=== PATIENT | female | born 1995 | race Caucasian/White ===

== ENCOUNTER → 2018-01-13 19:05 | Outpatient (CLI) | payer OTHER, MEDICAID, SELFPAY ==
--- NOTE | 2018-01-13 19:16 | DI.RAD.S_ITS ---
PROCEDURE: XR KNEE LT 3V INDICATIONS: L knee pain TECHNIQUE: 3 views of the knee were acquired. COMPARISON: None. FINDINGS: Bones: No fractures or dislocations. No suspicious bony lesions. Intramedullary chuy within the femur is present. Soft tissues: No joint effusion. No suspicious soft tissue calcifications. IMPRESSION: No fracture. No osseous lesion. If symptoms or clinical suspicion for pathology persists, further assessment with repeat plain films, or advanced imaging (e.g., CT, MRI, or bone scan) is recommended. Dictated by: Eliana Mehta M.D. on 01/13/2018 at 19:38 Approved by: Eliana Mehta M.D. on 01/13/2018 at 19:39
== END ==
PROVIDERS: Visit Provider Physician Assistant
DX: M25.562 Pain in left knee (principal)
CPT/HCPCS: 73562

== ENCOUNTER → 2018-01-19 12:32 | Outpatient (CLI) | payer OTHER, MEDICAID, SELFPAY ==
--- NOTE | 2018-01-19 12:33 | DI.MRI.S_ITS ---
PROCEDURE: MR KNEE LT WO/W CON INDICATIONS: L knee pain TECHNIQUE: Noncontrast sagittal PD fast spin echo and T2 fast spin echo with fat saturation, sagittal 3-D FLASH with fat saturation; coronal T1 spin echo and PD fast spin echo with fat saturation, and axial T1 spin echo and PD fast spin echo with fat saturation through the knee. Post-contrast axial, coronal, and sagittal T1 spin echo with fat saturation through the knee. COMPARISON: None. FINDINGS: Image quality: Excellent. Menisci: The medial and lateral menisci demonstrate normal morphology and internal signal. The meniscal root ligaments appear intact. Cruciate ligaments: The anterior and posterior cruciate ligaments appear intact. Medial structures: The medial collateral ligament appears intact. The posterior oblique ligament, semimembranosus tendon insertions, and oblique popliteal liagment, and meniscocapsular junction appear intact. Visualized portions of the pes anserinus tendons appear normal. No abnormal bursal fluid. Lateral structures: The lateral collateral ligament, long and short heads of the biceps femoris tendon appear intact. The popliteus tendon appears normal; the popliteofibular ligament appears intact. The posterosuperior and anteroinferior popliteomeniscal fascicles appear intact. The arcuate and fabellofibular ligaments appear intact, around the lateral inferior geniculate artery. Iliotibial band appears normal. Anterior structures: The quadriceps and patellar tendons appear intact. Patellar alignment is normal. No femoral trochlear dysplasia or ventral trochlear prominence. No edema in the infrapatellar fat pad. Bones and cartilage: Intramedullary chuy in the visualized portion of distal femur is seen. There is tiny 3 mm area of signal abnormality involving weight-bearing portion of lateral femoral condyle with mild overlying chondromalacia suggestive of small osteochondral lesion in this area. No other area of abnormal marrow signal is seen. No fracture or dislocation. No suspicious osseous enhancement. The cartilage of the medial femorotibial compartments, as well as the patellofemoral compartment, appears normal in thickness. Joint space: There is physiologic knee joint fluid. No Najera's cyst. Normal appearing synovial plicae are incidentally noted. No suspicious soft tissue enhancement. IMPRESSION: 1. Findings suggestive of a tiny 3 mm osteochondral lesion involving weight-bearing portion of lateral femoral condyle. 2. Intramedullary chuy and distal femoral shaft. No acute fracture or dislocation. No other area of marrow signal abnormality. 3. Patient ligaments are intact. No evidence of focal meniscal tear. Dictated by: Kenny Varma M.D. on 01/19/2018 at 13:42 Approved by: Kenny Varma M.D. on 01/19/2018 at 14:37
== END ==
PROVIDERS: PCP Family Medicine; Visit Provider Physician Assistant
DX: M25.562 Pain in left knee (principal)
CPT/HCPCS: 73723; A9579

== ENCOUNTER → 2018-04-28 08:55 | Outpatient (CLI) | payer OTHER, MEDICAID, SELFPAY ==
[2018-04-28 09:56] LABS: Add Manual Diff / Slide Review NO; Basophils Absolute Auto 0 /uL (0-100); Basophils Percent Auto 0.5 % (0-2); Eosinophils Absolute Auto 100 /uL (0-450); Eosinophils Percent Auto 2.1 % (2-4); Hematocrit 41.5 % (36-46); Hemoglobin 13.4 g/dL (12.0-16.0); Lymphocytes Absolute Auto 2200 /uL (1100-4500); Lymphocytes Percent Auto 33.2 % (25-40); Mean Corpuscular HGB Conc 32.3 % (30-36); Mean Corpuscular Hemoglobin 24.5 PG (26-34); Mean Corpuscular Volume 75.9 fL (80-100); Monocytes Absolute Auto 500 /uL (0-900); Neutrophils Absolute Auto 3800 /uL (1500-7000); Neutrophils Percent Auto 57.2 % (50-75); Platelet Count 313 X10^3/uL (150-400); Red Blood Cell Count 5.47 X10^6/uL (4.0-5.2); Red Cell Distribution Width 16.1 % (11.6-14.8); White Blood Cell Count 6.7 X10^3/uL (4.5-11.0)
[2018-04-28 10:26] LABS: Alanine Aminotransferase 160 IU/L (9-52); Albumin 4.4 g/dL (3.5-5.0); Albumin Globulin Ratio 1.3 (1.0-2.8); Alkaline Phosphatase 78 U/L (38-126); Aspartate Aminotransferase 72 IU/L (14-36); BUN Creatinine Ratio 13.3 (6-22); Bilirubin Total 0.3 mg/dL (0.2-1.3); Blood Urea Nitrogen 8 mg/dL (7-17); Calcium 9.3 mg/dL (8.4-10.2); Carbon Dioxide 26 mmol/L (22-32); Chloride 105 mmol/L (98-107); Cholesterol 173 mg/dL (140-199); Estimated Glomerular Filt Rate > 60.0 mL/min (>60); Globulin 3.4 g/dL (1.7-4.1); Glucose 96 mg/dL (70-100); HDL Cholesterol 40 mg/dL (40-60); HEMOLYSIS < 15 (0-50); LDL Cholesterol Calculated 113 mg/dL (<100); Potassium 4.4 mmol/L (3.4-5.1); Sodium 142 mmol/L (137-145); Total Protein 7.8 g/dL (6.3-8.2); Triglycerides 102 mg/dL (35-150)
[2018-04-28 10:34] LABS: Follicle Stimulating Hormone 4.16 mIU/mL; Luteinizing Hormone 6.43 mIU/mL; Prolactin 24.1 ng/mL (3.0-18.6)
[2018-04-28 10:46] LABS: TSH w/ Reflex to FT4 2.55 uIU/mL (0.47-4.68)
== END ==
PROVIDERS: PCP Family Medicine; Visit Provider Family Medicine
DX: E28.2 Polycystic ovarian syndrome (principal)
CPT/HCPCS: 36415; 80053; 80061; 83001; 83002; 84146; 84403; 84443; 85025

== ENCOUNTER → 2018-07-15 14:09 | Outpatient (CLI) | payer OTHER, MEDICAID, SELFPAY ==
[2018-07-15 14:28] LABS: Add Manual Diff / Slide Review NO; Basophils Absolute Auto 100 /uL (0-100); Basophils Percent Auto 0.8 % (0-2); Eosinophils Absolute Auto 200 /uL (0-450); Eosinophils Percent Auto 1.6 % (2-4); Hematocrit 44.6 % (36-46); Hemoglobin 14.5 g/dL (12.0-16.0); Lymphocytes Absolute Auto 2800 /uL (1100-4500); Lymphocytes Percent Auto 25.2 % (25-40); Mean Corpuscular HGB Conc 32.5 % (30-36); Mean Corpuscular Hemoglobin 24.4 PG (26-34); Mean Corpuscular Volume 75.2 fL (80-100); Monocytes Absolute Auto 600 /uL (0-900); Monocytes Percent Auto 5.2 % (3-14); Neutrophils Absolute Auto 7400 /uL (1500-7000); Neutrophils Percent Auto 67.2 % (50-75); Platelet Count 350 X10^3/uL (150-400); Red Blood Cell Count 5.93 X10^6/uL (4.0-5.2); Red Cell Distribution Width 15.5 % (11.6-14.8); White Blood Cell Count 10.9 X10^3/uL (4.5-11.0)
[2018-07-15 14:44] LABS: HEMOLYSIS < 15 (0-50); Iron 48 ug/dL (37-170)
[2018-07-15 14:55] LABS: Percent Iron Saturation 10 % (15-50); Total Iron Binding Capacity 474 ug/dL (265-497); Transferrin 365 mg/dL (206-381)
[2018-07-15 15:00] LABS: Prolactin 21.1 ng/mL (3.0-18.6)
[2018-07-15 16:19] LABS: Urine N gonorrhoeae NOT DETECTED
[2018-07-15 16:40] LABS: Urine Chlamydia NOT DETECTED
== END ==
PROVIDERS: PCP Family Medicine; Visit Provider Family Medicine
DX: Z11.3 Encounter for screening for infections with a predominantly sexual mode of transmission (principal); E22.1 Hyperprolactinemia; D50.9 Iron deficiency anemia, unspecified
CPT/HCPCS: 36415; 83540; 83550; 84146; 85025; 87491; 87591

== ENCOUNTER → 2018-09-21 15:05 | Outpatient (CLI) | payer OTHER, MEDICAID, SELFPAY ==
[2018-09-24 10:51] LABS: Mitogen-NIL > 10.00 IU/mL; NIL 0.02 IU/mL; QuantiFERON TB NEGATIVE (Negative); TB1-NIL 0.01 IU/mL; TB2-NIL 0.01 IU/mL
== END ==
PROVIDERS: PCP Family Medicine; Visit Provider Family Medicine
DX: Z11.1 Encounter for screening for respiratory tuberculosis (principal)
CPT/HCPCS: 36415; 86480

== ENCOUNTER → 2018-10-27 16:17 | Outpatient (CLI) | payer OTHER, MEDICAID, SELFPAY ==
[2018-10-27 20:29] LABS: Urine N gonorrhoeae NOT DETECTED
[2018-10-27 20:32] LABS: Urine Chlamydia NOT DETECTED
== END ==
PROVIDERS: PCP Family Medicine; Visit Provider Family Medicine
DX: Z11.3 Encounter for screening for infections with a predominantly sexual mode of transmission (principal); Z72.51 High risk heterosexual behavior
CPT/HCPCS: 87491; 87591

== ENCOUNTER → 2018-11-02 13:10 | Outpatient (CLI) | payer OTHER, MEDICAID, SELFPAY ==
[2018-11-02 16:24] LABS: BUN Creatinine Ratio 11.7 (6-22); Blood Urea Nitrogen 7 mg/dL (7-17); Calcium 9.1 mg/dL (8.4-10.2); Carbon Dioxide 26 mmol/L (22-32); Chloride 102 mmol/L (98-107); Estimated Glomerular Filt Rate > 60.0 mL/min (>60); Glucose 104 mg/dL (70-100); HEMOLYSIS < 15 (0-50); Potassium 4.2 mmol/L (3.4-5.1); Sodium 139 mmol/L (137-145)
== END ==
PROVIDERS: PCP Family Medicine; Visit Provider Family Medicine
DX: L68.0 Hirsutism (principal)
CPT/HCPCS: 36415; 80048

== ENCOUNTER → 2019-03-10 13:35 | Outpatient (CLI) | payer OTHER, MEDICAID, SELFPAY ==
[2019-03-10 16:58] LABS: Urine N gonorrhoeae NOT DETECTED
[2019-03-10 17:06] LABS: Urine Chlamydia NOT DETECTED
== END ==
PROVIDERS: PCP Family Medicine; Visit Provider Family Medicine
DX: Z11.3 Encounter for screening for infections with a predominantly sexual mode of transmission (principal)
CPT/HCPCS: 87491; 87591

== ENCOUNTER 2019-05-19 02:03 | Emergency (ER) | payer OTHER, MEDICAID, SELFPAY ==
[2019-05-19 02:21] VITALS: BP 141/77; PULSE 90; RESP 17; TEMP 36.9; O2SAT 97; BMI 37.8
--- NOTE | 2019-05-19 02:58 | ED.HA ---
HPI - Headache General Chief Complaint: Headache Stated Complaint: sinus infection/shaking/sweating/headaches Time Seen by Provider: 05/19/19 02:45 History of Present Illness HPI Narrative: HPI: The patient is a 23-year-old female who presents to the emergency department with a bifrontal headache behind both eyes. She states that she is phonophobia can photophobic. When asked questions the patient is looking to her friend for acknowledgement of her answers. She denies any loss of vision or diplopia. She states that she was seen earlier in the walk-in clinic and told that she had a sinus infection and was placed on penicillin. She denies any fall or injury to her head. Her last headache was yesterday. She states that normally she has daily headaches. She states that she has never been told that she had migraine headaches. She describes the discomfort as a dull achy throbbing pain that is approximately 7 to 8/10 in intensity. She denies any fever chills but has had intermittent sweats. She has had no loss of vision or diplopia. She denies any sore throat but has had sinus congestion and nasal drainage without nose bleed. She has had no significant cough chest pain palpitations. She has had nausea and vomited twice earlier today. She has had no diarrhea and no urinary symptoms. She states that her last menstrual period was earlier this month. She states that she had a negative test when she was seen in the walk-in clinic. She denies history of asthma hypertension or diabetes mellitus. She admits to smoking cigarettes drinking alcohol and smoking marijuana. Related Data Previous Rx's Medication Instructions Recorded spironolactone 50 mg tablet 50 mg PO BID #60 tab 10/27/18 sertraline 100 mg tablet 100 mg PO DAILY #90 tab 12/26/18 norgestimate 0.25 mg-ethinyl 1 tab PO DAILY #28 tab 02/27/19 estradiol 35 mcg tablet amoxicillin 875 mg-potassium 1 tab PO BID #20 tab 05/15/19 clavulanate 125 mg tablet naproxen [Naprosyn] 500 mg PO BID PRN #20 tab 05/19/19 prednisone 40 mg PO DAILY #8 tab 05/19/19 prochlorperazine maleate 10 mg PO Q6H PRN #12 tab 05/19/19 [Compazine] Allergies Allergy/AdvReac Type Severity Reaction Status Date / Time No Known Drug Allergies Allergy Verified 05/15/19 14:58 Review of Systems Review of Systems Narrative: Her review of systems were all negative except for those mentioned in the history of present illness. Patient History Medical History Depression (Acute) Fracture (Resolved) Hirsutism (Acute) PCOS (polycystic ovarian syndrome) (Acute) Sinusitis (Acute) Surgical History [place] teeth extracted (Resolved) Family History Father Hypertension CVA (cerebral vascular accident) Social History marital status: unmarried,single number of children: 0 lives independently: Yes education level: high school occupational status: unemployed Smoking Status: Never smoker alcohol intake: current (social) substance use type: does not use Smoking Status: Never smoker Exam Narrative Exam Narrative: PHYSICAL EXAM: CONSTITUTIONAL: Awake, Alert, Oriented, Coherent, Cooperative in NAD. Does not appear toxic or ill. HEAD: AT/NC, there is no tenderness to palpation over her frontal sinuses above her eyes but she is diffusely tender mildly to palpation over her maxillary sinuses. EENT: PERRL, FROM of eyes, no discharge, no nystagmus No epistaxis or nasal drainage Oral mucosa is moist and pink, posterior pharynx is without erythema or exudate. NECK: Supple, no obvious JVD, Trachea is midline without stridor, no palpable LN or masses. SPINE: No gross deformity, no palpable tenderness of the cervical, thoracic, lumbar or sacral spine. No CVA tenderness. THORAX: No deformity, retractions, chest wall tenderness, LUNGS: Clear with symmetrical breath sounds without respiratory distress HEART: Normal heart tones, regular rhythm and rate without murmur. ABDOMEN: Soft, non-tender, normal bowel sounds without guarding, rebound, rigidity or palpable mass or organomegaly. EXTREMITIES: No edema, cyanosis, deformity or tenderness. SKIN: No rash, bruising, petechiae or purpura. NEURO: Awake, alert, oriented, conversive, cranial nerves II-XII are symmetrical and normal, moves all 4 extremities and is ambulatory Initial Vital Signs Initial Vital Signs: Vital Signs Temperature 98.4 F 05/19/19 02:21 Pulse Rate 90 05/19/19 02:21 Respiratory Rate 17 05/19/19 02:21 Blood Pressure 141/77 H 05/19/19 02:21 Pulse Oximetry 97 05/19/19 02:21 Course Course Course Narrative: 0400 the patient's headache has completely resolved and she was sleeping. She will be discharged Orders Ordered: Discontinued Medications Diphenhydramine HCl (Benadryl) 50 mg IV NOW ONE Stop: 05/19/19 02:57 Last Admin: 05/19/19 03:06 Dose: 50 mg Documented by: FELICITY Sodium Chloride (Normal Saline 0.9%) 1,000 mls @ 1,000 mls/hr IV BOLUS ONE Stop: 05/19/19 03:55 Last Infusion: 05/19/19 04:05 Dose: 1,000 mls/hr Documented by: Admin: 05/19/19 03:07 Dose: 1,000 mls/hr Documented by: FELICITY Ketorolac Tromethamine (Toradol) 30 mg IV NOW ONE Stop: 05/19/19 02:57 Last Admin: 05/19/19 03:06 Dose: 30 mg Documented by: MARCOSL Methylprednisolone (Solu-Medrol 125 Mg Vial) 125 mg IV NOW ONE Stop: 05/19/19 02:57 Last Admin: 05/19/19 03:06 Dose: 125 mg Documented by: FELICITY Metoclopramide HCl (Reglan) 10 mg IV NOW ONE Stop: 05/19/19 02:57 Last Admin: 05/19/19 03:07 Dose: 10 mg Documented by: FELICITY Vital Signs Vital signs: Vital Signs - 8 hr 05/19/19 02:21 Temperature 98.4 F Pulse Rate 90 Respiratory Rate 17 Blood Pressure 141/77 H Pulse Oximetry 97 MDM - Headache Medical Records Attestation: I reviewed the patient's medical records. Lab Data Attestation: I reviewed the patient's lab results. Result diagrams: 05/19/19 02:50 05/19/19 02:50 Labs: Lab Results 05/19/19 05/19/19 Range/Units 02:50 02:50 WBC 10.7 (4.5-11.0) X10^3/uL RBC 5.06 (4.0-5.2) X10^6/uL Hgb 12.4 (12.0-16.0) g/dL Hct 38.3 (36-46) % MCV 75.6 L (80-100) fL MCH 24.5 L (26-34) PG MCHC 32.4 (30-36) % RDW 15.6 H (11.6-14.8) % Plt Count 352 (150-400) X10^3/uL Neut % (Auto) 69.6 (50-75) % Lymph % (Auto) 22.7 L (25-40) % Gillespie % (Auto) 5.8 (3-14) % Eos % (Auto) 1.1 L (2-4) % Baso % (Auto) 0.8 (0-2) % Neut # (Auto) 7400 H (7279-6746) /uL Lymph # (Auto) 2400 (0386-9207) /uL Gillespie # (Auto) 600 (0-900) /uL Eos # (Auto) 100 (0-450) /uL Baso # (Auto) 100 (0-100) /uL Sodium 138 (137-145) mmol/L Potassium 3.8 (3.4-5.1) mmol/L Chloride 105 (98-107) mmol/L Carbon Dioxide 21 L (22-32) mmol/L BUN 11 (7-17) mg/dL Creatinine 0.58 (0.52-1.04) mg/dL Estimated GFR > 60.0 (>60) mL/min BUN/Creatinine Ratio 19.0 (6-22) Glucose 116 H (70-100) mg/dL Calcium 9.2 (8.4-10.2) mg/dL Total Bilirubin 0.2 (0.2-1.3) mg/dL AST 23 (14-36) IU/L ALT 17 (<35) IU/L Alkaline Phosphatase 68 (38-126) U/L Total Protein 8.2 (6.3-8.2) g/dL Albumin 4.6 (3.5-5.0) g/dL Globulin 3.6 (1.7-4.1) g/dL Albumin/Globulin Ratio 1.3 (1.0-2.8) Discharge Plan Departure Patient Disposition: Home Clinical Impression: Headache around the eyes Discharge Date/Time: 05/19/19 04:09 Instructions: DI for Migraine, DI for Headache Activity Restrictions/Additional Instructions: 1. Follow-up with your primary care physician. Make an appointment to be re-evaluated in 48-72 hours. 2. For your headaches use Naprosyn 500 mg twice a day as prescribed. 3. For associated nausea and vomiting take the Compazine in conjunction with Benadryl 25 mg 3 times a day. 4. If you develop worsening headache, fever chills or sweats return to the emergency department. 5. Continue to use your antibiotics as prescribed. Prescriptions: New prochlorperazine maleate [Compazine] 10 mg tablet 10 mg PO Q6H PRN (Reason: nausea and vomiting) Qty: 12 RF: 0 naproxen [Naprosyn] 500 mg tablet 500 mg PO BID PRN (Reason: pain) Qty: 20 RF: 0 prednisone 20 mg tablet 40 mg PO DAILY Qty: 8 RF: 0 No Action spironolactone 50 mg tablet 50 mg PO BID Qty: 60 RF: 3 amoxicillin-pot clavulanate [Augmentin] 875-125 mg tablet 1 tab PO BID Qty: 20 RF: 0 sertraline 100 mg tablet 100 mg PO DAILY Qty: 90 RF: 1 norgestimate-ethinyl estradiol [Sprintec (28)] 0.25-35 mg-mcg tablet 1 tab PO DAILY Qty: 28 RF: 3 Referrals: Ciara Lopes DO [Primary Care Provider] - ED Sign-out [facility] ED Attending [place] Attestation: I was immediately available in the department for consultation. This documentation has been reviewed and I agree with assessment and plan. Supervised by Stephan Weiner MD
[2019-05-19 03:06] LABS: Add Manual Diff / Slide Review NO; Basophils Absolute Auto 100 /uL (0-100); Basophils Percent Auto 0.8 % (0-2); Eosinophils Absolute Auto 100 /uL (0-450); Eosinophils Percent Auto 1.1 % (2-4); Hematocrit 38.3 % (36-46); Hemoglobin 12.4 g/dL (12.0-16.0); Lymphocytes Absolute Auto 2400 /uL (1100-4500); Lymphocytes Percent Auto 22.7 % (25-40); Mean Corpuscular HGB Conc 32.4 % (30-36); Mean Corpuscular Hemoglobin 24.5 PG (26-34); Mean Corpuscular Volume 75.6 fL (80-100); Monocytes Absolute Auto 600 /uL (0-900); Monocytes Percent Auto 5.8 % (3-14); Neutrophils Absolute Auto 7400 /uL (1500-7000); Neutrophils Percent Auto 69.6 % (50-75); Platelet Count 352 X10^3/uL (150-400); Red Blood Cell Count 5.06 X10^6/uL (4.0-5.2); Red Cell Distribution Width 15.6 % (11.6-14.8); White Blood Cell Count 10.7 X10^3/uL (4.5-11.0)
[2019-05-19] MEDS: diphenhydrAMINE 50 MG/ML VIAL IV (03:06)
[2019-05-19] MEDS: KETOROLAC 60 MG/2 ML VIAL 30 MG IV (03:06)
[2019-05-19] MEDS: methylPREDNISolone 125 MG/2 ML VIAL IV (03:06)
[2019-05-19] MEDS: SODIUM CHLORIDE 0.9% 1,000 ML 1000 ML IV (03:07)
[2019-05-19] MEDS: METOCLOPRAMIDE 10 MG/2 ML INJ IV (03:07)
[2019-05-19 03:14] LABS: Alanine Aminotransferase 17 IU/L (<35); Albumin 4.6 g/dL (3.5-5.0); Albumin Globulin Ratio 1.3 (1.0-2.8); Alkaline Phosphatase 68 U/L (38-126); Aspartate Aminotransferase 23 IU/L (14-36); Bilirubin Total 0.2 mg/dL (0.2-1.3); Blood Urea Nitrogen 11 mg/dL (7-17); Calcium 9.2 mg/dL (8.4-10.2); Carbon Dioxide 21 mmol/L (22-32); Chloride 105 mmol/L (98-107); Estimated Glomerular Filt Rate > 60.0 mL/min (>60); Globulin 3.6 g/dL (1.7-4.1); Glucose 116 mg/dL (70-100); HEMOLYSIS < 15 (0-50); Potassium 3.8 mmol/L (3.4-5.1); Sodium 138 mmol/L (137-145); Total Protein 8.2 g/dL (6.3-8.2)
[2019-05-19 04:08] VITALS: BP 129/76; PULSE 73; RESP 14; O2SAT 98
== END 2019-05-19 04:09 | disposition home or self-care (01) ==
PROVIDERS: Emergency Provider Emergency Medicine; PCP Family Medicine
DX: R51 Headache (principal); H53.149 Visual discomfort, unspecified
CPT/HCPCS: 80053; 85025; 96361; 96374; 96375; 99283; 99284; J1200; J1885; J2765; J2930

== ENCOUNTER 2019-07-20 07:30 | Emergency (ER) | payer OTHER, MEDICAID, SELFPAY ==
[2019-07-20 07:35] VITALS: BP 131/71; PULSE 94; RESP 18; TEMP 36.7; O2SAT 100; BMI 37.8
--- NOTE | 2019-07-20 07:35 | ED.GENADULT ---
HPI - General Adult General Chief complaint: Headache Stated complaint: Severe migraines causing nausea Time Seen by Provider: 07/20/19 07:32 Source: patient Mode of arrival: Ambulatory Limitations: no limitations History of Present Illness HPI narrative: 23-year-old female here for evaluation of a headache. She describes it as bilateral. Behind her eyes. Very similar to the headache that she had when she was here in the emergency department 2 months ago. At that visit she received IV medications which completely resolved her symptoms. Since that time she states she has tried to follow up with her primary provider however secondary to the COVID-19 crisis she has not been able to do so. She states that yesterday morning the headache started again. Has a gradual onset. No trauma. Again has the same symptoms 2 months ago. No fevers. No neck pain. Tried some mxuz-[id number]-cgwowsy medications without any improvement. She also smokes marijuana which only minimally improved her symptoms. She states that her headaches have become more frequent. She states that it has been happening almost on a daily basis. Related Data Previous Rx's Medication Instructions Recorded spironolactone 50 mg tablet 50 mg PO BID #60 tab 10/27/18 sertraline 100 mg tablet 100 mg PO DAILY #90 tab 12/26/18 amoxicillin 875 mg-potassium 1 tab PO BID #20 tab 05/15/19 clavulanate 125 mg tablet naproxen [Naprosyn] 500 mg PO BID PRN #20 tab 05/19/19 prednisone 40 mg PO DAILY #8 tab 05/19/19 prochlorperazine maleate 10 mg PO Q6H PRN #12 tab 05/19/19 [Compazine] norgestimate 0.25 mg-ethinyl 1 tab PO DAILY #84 tab 06/02/19 estradiol 35 mcg tablet Allergies Allergy/AdvReac Type Severity Reaction Status Date / Time No Known Drug Allergies Allergy Verified 07/20/19 07:57 Review of Systems Constitutional Constitutional: Denies fever(s), Denies frequent falls and Reports headache(s) Eyes Eyes: Reports photophobia ENT Ears, Nose, Mouth, and Throat: Denies vertigo, Denies dizziness, Reports headache(s), Denies sinus pressure and Denies sore throat Cardiovascular Cardiovascular: Denies chest pain and Denies dyspnea Respiratory Respiratory: Denies dyspnea Gastrointestinal Gastrointestinal: Denies abdominal pain, Reports nausea and Denies vomiting Musculoskeletal Musculoskeletal: Denies myalgias and Denies arthralgias Integumentary/Breasts Skin/Breast: Denies rash Neurologic Neurologic: Denies behavioral changes, Denies vertigo, Denies dizziness, Denies frequent falls and Reports headache(s) Psychiatric Psychiatric: Denies behavioral changes Hematologic/Lymphatic Hematologic/Lymphatic: Denies easy bleeding and Denies easy bruising Patient History Medical History Depression (Acute) Fracture (Resolved) Hirsutism (Acute) PCOS (polycystic ovarian syndrome) (Acute) Sinusitis (Acute) Social History marital status: unmarried,single number of children: 0 lives independently: Yes education level: high school occupational status: unemployed Smoking Status: Never smoker alcohol intake: current (social) substance use type: does not use Smoking Status: Never smoker Exam Initial Vital Signs Initial Vital Signs: Vital Signs Temperature 98.0 F 07/20/19 07:35 Pulse Rate 94 H 07/20/19 07:35 Respiratory Rate 18 07/20/19 07:35 Blood Pressure 131/71 07/20/19 07:35 Pulse Oximetry 100 07/20/19 07:35 Const General: cooperative, healthy appearing and comfortable HENSC Head: normal to inspection and normocephalic Resp Effort & Inspection: normal respiratory effort Cardio Rate: regular rate Skin Lesions: no lesions Rashes: no rashes Neuro General: alert, awake and oriented x3 Cognition: normal cognition Speech: speech normal Gait: normal gait Extrem General: normal to inspection and No edema Psych Appearance: grossly normal and well kempt Scores GCS Kash coma scale eye opening: Spontaneous Kash coma scale verbal response: Orientated [place] coma scale motor response: Obey commands Kash coma scale total score: 15 Course Orders Ordered: Discontinued Medications Diphenhydramine HCl (Benadryl) 25 mg IV NOW ONE Stop: 07/20/19 07:40 Last Admin: 07/20/19 08:01 Dose: 25 mg Documented by: KAREN Sodium Chloride (Normal Saline 0.9%) 1,000 mls @ 1,000 mls/hr IV BOLUS ONE Stop: 07/20/19 08:38 Last Admin: 05/21/20 08:01 Dose: 1,000 mls/hr Documented by: KAREN Ketorolac Tromethamine (Toradol) 30 mg IV NOW ONE Stop: 07/20/19 07:40 Last Admin: 07/20/19 08:01 Dose: 30 mg Documented by: KAREN Metoclopramide HCl (Reglan) 10 mg IV NOW ONE Stop: 07/20/19 07:40 Last Admin: 07/20/19 08:00 Dose: 10 mg Documented by: KAREN Vital Signs Vital signs: Vital Signs - 8 hr 07/20/19 07:35 07/20/19 08:05 07/20/19 08:30 Temperature 98.0 F Pulse Rate 94 H 82 88 Respiratory Rate 18 16 14 Blood Pressure 131/71 Blood Pressure [Right Arm] 120/76 126/68 Pulse Oximetry 100 98 99 Medical Decision Making MDM Narrative Medical decision making narrative: Patient reports complete resolution of her symptoms acting medications. Informed her that she should talk with her primary provider for follow-up to discuss potential preventative medications given her increase in headache frequency. Low suspicion for meningitis. Low suspicion for intracranial bleed. Feel we could hold on radiologic studies. She expressed understanding and agreement plan. Discharge Plan Departure Patient Disposition: Home Clinical Impression: Headache Qualifiers: Headache type: unspecified Headache chronicity pattern: unspecified pattern Intractability: not intractable Qualified Code(s): R51 - Headache Activity Restrictions/Additional Instructions: Highly recommend that you follow-up with your primary care provider to discuss further evaluation and potential further medications for her headaches. Return to the emergency department for any new or worsening symptoms Prescriptions: No Action spironolactone 50 mg tablet 50 mg PO BID Qty: 60 RF: 3 amoxicillin-pot clavulanate [Augmentin] 875-125 mg tablet 1 tab PO BID Qty: 20 RF: 0 sertraline 100 mg tablet 100 mg PO DAILY Qty: 90 RF: 1 norgestimate-ethinyl estradiol [Sprintec (28)] 0.25-35 mg-mcg tablet 1 tab PO DAILY Qty: 84 RF: 3 prochlorperazine maleate [Compazine] 10 mg tablet 10 mg PO Q6H PRN (Reason: nausea and vomiting) Qty: 12 RF: 0 naproxen [Naprosyn] 500 mg tablet 500 mg PO BID PRN (Reason: pain) Qty: 20 RF: 0 prednisone 20 mg tablet 40 mg PO DAILY Qty: 8 RF: 0 Referrals: Ciara Lopes DO [Primary Care Provider] -
[2019-07-20] MEDS: METOCLOPRAMIDE 10 MG/2 ML INJ IV (08:00)
[2019-07-20] MEDS: KETOROLAC 60 MG/2 ML VIAL 30 MG IV (08:01)
[2019-07-20] MEDS: diphenhydrAMINE 50 MG/ML VIAL 25 MG IV (08:01)
[2019-07-20] MEDS: SODIUM CHLORIDE 0.9% 1,000 ML 1000 ML IV (08:01)
[2019-07-20 08:05] VITALS: BP 120/76; PULSE 82; RESP 16; O2SAT 98
[2019-07-20 08:30] VITALS: BP 126/68; PULSE 88; RESP 14; O2SAT 99
[2019-07-20 09:16] VITALS: BP 123/63; PULSE 84; O2SAT 98
== END 2019-07-20 09:17 | disposition home or self-care (01) ==
PROVIDERS: Emergency Provider Emergency Medicine; PCP Family Medicine
DX: R51 Headache (principal)
CPT/HCPCS: 36415; 96361; 96374; 96375; 99284; J1200; J1885; J2765

== ENCOUNTER → 2019-08-02 14:17 | Outpatient (CLI) | payer OTHER, MEDICAID, SELFPAY ==
[2019-08-02 16:58] LABS: Urine N gonorrhoeae NOT DETECTED
[2019-08-02 17:08] LABS: Urine Chlamydia NOT DETECTED
== END ==
PROVIDERS: PCP Family Medicine; Referring Provider Family Medicine; Visit Provider Family Medicine
DX: Z72.51 High risk heterosexual behavior (principal)
CPT/HCPCS: 87491; 87591

== ENCOUNTER → 2019-09-29 17:24 | Outpatient (CLI) | payer OTHER, MEDICAID, SELFPAY ==
[2019-09-29 18:36] LABS: HCG Quantitative /Beta subunit < 2.4 mIU/mL
== END ==
PROVIDERS: PCP Family Medicine; Referring Provider Family Medicine; Visit Provider Family Medicine
DX: N92.6 Irregular menstruation, unspecified (principal); R53.83 Other fatigue
CPT/HCPCS: 36415; 84702

== ENCOUNTER 2019-11-05 23:19 | Emergency (ER) | payer OTHER, MEDICAID, SELFPAY ==
--- NOTE | 2019-11-05 23:21 | ED.HA ---
HPI - Headache General Chief Complaint: Headache Stated Complaint: migraine nausea vomiting fatigue Time Seen by Provider: 11/05/19 23:20 Source: patient Mode of arrival: Ambulatory Limitations: no limitations History of Present Illness HPI Narrative: 24-year-old female nonsmoker with history of migraines and polycystic ovarian disease presents with a chief complaint of a typical migraine-type headache which has been persisting since about 10 this morning. She states has been gradually worsening and is most intense behind her eyes. She states her symptoms are worsened by bright lights and loud noises and improved by rest in a dark room. She has had some nausea and vomiting. She states that she saw some squiggly abnormalities in her vision earlier and her primary care provider told her to come to the emergency department to get a CT scan if that ever happened. She denies any trauma or head injury. She denies any change in her medications or diet. She denies any recent fever or chills and has no neck pain. She denies any focal neurologic findings such as numbness, tingling or weakness MD Complaint: migraine Onset (ago): hour(s) Onset description: gradual Location: frontal Severity: moderate Quality: aching and throbbing Relieving factors: dark room Exacerbating factors: light and noise Context: occurred at rest Associated symptoms: nausea, vomiting, photophobia and sensitivity to sound Treatments prior to arrival: none Related Data Previous Rx's Medication Instructions Recorded sumatriptan succinate 25 mg tablet See Rx Instructions PO .COMPLEX 07/21/19 #10 tab metformin 500 mg tablet 500 mg PO BID #60 tab 10/09/19 sertraline 50 mg tablet 50 mg PO DAILY #30 tab 10/09/19 Allergies Allergy/AdvReac Type Severity Reaction Status Date / Time No Known Drug Allergies Allergy Verified 07/20/19 07:57 Review of Systems Constitutional Constitutional: Denies chills, Denies fatigue, Denies fever(s), Denies frequent falls, Reports headache(s), Denies lethargy and Denies weakness Eyes Eyes: Denies change in vision, Denies eye discharge, Denies irritation and Denies loss of vision ENT Ears, Nose, Mouth, and Throat: Denies change in voice, Denies dizziness, Reports headache(s), Denies neck pain, Denies sore throat and Denies throat swelling Cardiovascular Cardiovascular: Denies chest pain, Denies irregular heart rhythm, Denies lightheadedness, Denies palpitations, Denies dyspnea, Denies dyspnea on exertion and Denies orthopnea Respiratory Respiratory: Denies cough, Denies dyspnea, Denies dyspnea on exertion and Denies wheezing Gastrointestinal Gastrointestinal: Denies abdominal pain, Denies change in bowel habits, Denies diarrhea, Reports nausea and Reports vomiting Musculoskeletal Musculoskeletal: Denies neck pain and Denies numbness Integumentary/Breasts Skin/Breast: Denies pruritus, Denies erythema, Denies rash and Denies wounds Neurologic Neurologic: Denies behavioral changes, Denies confusion, Denies dizziness, Denies frequent falls, Reports headache(s), Denies loss of vision, Denies numbness and Denies weakness Psychiatric Psychiatric: Denies anxiety, Denies behavioral changes, Denies confusion, Denies depression, Denies homicidal ideation and Denies suicidal ideation Endocrine Endocrine: Denies fatigue, Denies flushing and Denies palpitations Hematologic/Lymphatic Hematologic/Lymphatic: Denies easy bruising Allergic/Immunologic Allergic/Immunologic: Denies urticaria, Denies throat swelling and Denies wheezing Patient History Medical History Depression (Acute) Depression (Acute) Fracture (Resolved) Generalized anxiety disorder (Acute) Hirsutism (Acute) PCOS (polycystic ovarian syndrome) (Acute) Surgical History [place] teeth extracted (Resolved) Family History Father Hypertension CVA (cerebral vascular accident) Social History marital status: unmarried,single number of children: 0 lives independently: Yes education level: high school occupational status: unemployed Smoking Status: Never smoker alcohol intake: current (social) substance use type: does not use Smoking Status: Never smoker tobacco type: vaping Substance Use Type: marijuana Exam Narrative Exam Narrative: GENERAL: [24] year old patient appears stated age. Well-nourished, well-developed patient, in mild distress. HEAD: Atraumatic. Normocephalic. EYES: Pupils equal round and reactive. Extraocular motions intact. No scleral icterus. No injection or drainage. ENT: Nose without bleeding, purulent drainage. Throat without erythema, tonsillar hypertrophy or exudate. Airway patent. NECK: Trachea midline. Non tender CARDIOVASCULAR: Regular rate and rhythm without murmurs, gallops, or rubs. RESPIRATORY: Clear to auscultation. Breath sounds equal bilaterally. No wheezes, rales, or rhonchi. GASTROINTESTINAL: Abdomen soft, non-tender, nondistended. EXTREMITIES: No edema or joint tenderness. BACK: Nontender without deformity or crepitance. No flank tenderness. NEURO: AOx3. SKIN: No rash or erythema of visible areas NIH Stroke Scale 1a. LOC: Patient is alert and keenly responsive (0) 1b. LOC Questions: Patient answers both LOC questions accurately (0) 1c. LOC Commands: Patient performs both tasks correctly (0) 2. Best Gaze: Normal (0) 3. Visual: No visual loss (0) 4. Facial palsy: Normal symmetrical movements (0) 5. Motor arm: No drift (0) 6. Motor leg: No drift (0) 7. Limb ataxia: Absent (0) 8. Sensory: Normal (0) 9. Best language: No aphasia; normal (0) 10. Dysarthria: Normal (0) 11. Extinction and inattention: No abnormality (0) NIHSS: 0 Initial Vital Signs Initial Vital Signs: Vital Signs Temperature 98.2 F 11/05/19 23:26 Pulse Rate 101 H 11/05/19 23:26 Respiratory Rate 20 11/05/19 23:26 Blood Pressure 172/95 H 11/05/19 23:26 Pulse Oximetry 98 11/05/19 23:26 Course Orders Ordered: ED Orders 11/05/19 23:35 CT head/brain wo con Stat Discontinued Medications Dexamethasone (Decadron) 10 mg IV NOW ONE Stop: 11/05/19 23:35 Last Admin: 11/05/19 23:51 Dose: 10 mg Documented by: FRANCES Diphenhydramine HCl (Benadryl) 25 mg IV NOW ONE Stop: 11/05/19 23:35 Last Admin: 11/05/19 23:58 Dose: 25 mg Documented by: FRANCES Sodium Chloride (Normal Saline 0.9%) 1,000 mls @ 1,000 mls/hr IV BOLUS ONE Stop: 11/06/19 00:33 Last Infusion: 11/06/19 00:52 Dose: 0 mls/hr Documented by: Admin: 11/05/19 23:50 Dose: 1,000 mls/hr Documented by: FRANCES Ketorolac Tromethamine (Toradol) 15 mg IV NOW ONE Stop: 11/05/19 23:35 Last Admin: 11/06/19 00:00 Dose: 15 mg Documented by: FRANCES Metoclopramide HCl (Reglan) 10 mg IV NOW ONE Stop: 11/05/19 23:35 Last Admin: 11/05/19 23:55 Dose: 10 mg Documented by: FRANCES Reevaluation(s) Reevaluation #1: significant improvement after the above state therapies Vital Signs Vital signs: Vital Signs - 8 hr 11/05/19 23:26 11/06/19 00:17 11/06/19 00:18 Temperature 98.2 F Pulse Rate 101 H 84 89 Respiratory Rate 20 16 Blood Pressure 172/95 H 128/80 Pulse Oximetry 98 97 97 11/06/19 00:30 Temperature Pulse Rate 75 Respiratory Rate Blood Pressure 130/78 Pulse Oximetry 97 MDM - Headache Lab Data Labs: Point of Care Testing Test Results Negative Urine Dip Bedside Urine Glucose Negative Bedside Urine Bilirubin - Negative Bedside Urine Ketone +/- 5 Urine Specific [place] 1.020 Bedside Urine Occult Blood - Negative Bedside Urine pH 6.0 Bedside Urine Protein +/- 15 Bedside Urine Urobilinogen - Negative Bedside Urine Nitrite - Negative Bedside Urine Leukocytes - Negative Esterase Imaging Data CT scan - head: Radiologist's Impression: No significant abnormalities Discharge Plan Departure Patient Disposition: Home Clinical Impression: Migraine Qualifiers: Migraine type: unspecified Status migrainosus presence: without status migrainosus Intractability: not intractable Qualified Code(s): G43.909 - Migraine, unspecified, not intractable, without status migrainosus Discharge Date/Time: 11/06/19 01:09 Instructions: DI for Migraine Activity Restrictions/Additional Instructions: *You have been diagnosed with [migraine-type headache, very reassuring story, exam, and CT scan] *What to do: *Take medications as directed *Follow up with your primary care provider in 2-3 days, call for an appointment. Let them know you were seen in the Emergency Department and that we ask that you be seen in follow up *Return to ER if you should have any new, worsening or concerning symptoms Prescriptions: No Action metformin 500 mg tablet 500 mg PO BID Qty: 60 RF: 2 sertraline 50 mg tablet 50 mg PO DAILY Qty: 30 RF: 1 sumatriptan succinate 25 mg tablet See Rx Instructions PO .COMPLEX Qty: 10 RF: 0 Referrals: Ciara Lopes DO [Primary Care Provider] - Stand Alone Forms: Work Release Note
[2019-11-05 23:26] VITALS: BP 172/95; PULSE 101; RESP 20; TEMP 36.8; O2SAT 98; BMI 38.6
--- NOTE | 2019-11-05 23:35 | DI.CT.S_ITS ---
PROCEDURE: CT HEAD/BRAIN WO CON INDICATIONS: severe headache, different than normal, request per PCP TECHNIQUE: Noncontrast 4.5 mm thick angled axial sections acquired from the foramen magnum to the vertex, with coronal and sagittal reformats. For radiation dose reduction, the following was used: automated exposure control, adjustment of mA and/or kV according to patient size. COMPARISON: None. FINDINGS: Image quality: Excellent. CSF spaces: Basal cisterns are patent. No extra-axial fluid collections. Ventricles are normal in size and shape. Brain: No midline shift. No intracranial masses or hemorrhage. Fall-white matter interface is normal. Skull and face: Calvarium and visualized facial bones are intact, without suspicious lesions. Sinuses: Visualized sinuses and mastoids are clear. IMPRESSION: Negative for acute intracranial hemorrhage. Normal intracranial study. Note: No significant discrepancy from the preliminary report. Dictated by: Deshawn East M.D. on 11/06/2019 at 8:18 Approved by: Deshawn East M.D. on 11/06/2019 at 8:19
[2019-11-05] MEDS: SODIUM CHLORIDE 0.9% 1,000 ML 1000 ML IV (23:50)
[2019-11-05] MEDS: DEXAMETHASONE 10 MG/ML VIAL IV (23:51)
[2019-11-05] MEDS: METOCLOPRAMIDE 10 MG/2 ML INJ IV (23:55)
[2019-11-05] MEDS: diphenhydrAMINE 50 MG/ML VIAL 25 MG IV (23:58)
[2019-11-06] MEDS: KETOROLAC 60 MG/2 ML VIAL 15 MG IV
[2019-11-06 00:17] VITALS: PULSE 84; O2SAT 97
[2019-11-06 00:18] VITALS: BP 128/80; PULSE 89; RESP 16; O2SAT 97
[2019-11-06 00:30] VITALS: BP 130/78; PULSE 75; O2SAT 97
== END 2019-11-06 01:09 | disposition home or self-care (01) ==
PROVIDERS: Emergency Provider Emergency Medicine; PCP Family Medicine
DX: G43.909 Migraine, unspecified, not intractable, without status migrainosus (principal)
CPT/HCPCS: 36415; 70450; 81003; 81025; 96361; 96374; 96375; 99284; J1100; J1200; J1885; J2765

== ENCOUNTER → 2020-06-09 09:19 | Outpatient (CLI) | payer OTHER, MEDICAID, SELFPAY ==
[2020-06-09 09:44] LABS: COVID19 -Nasal RAPID Negative (Negative)
== END ==
PROVIDERS: PCP Family Medicine; Visit Provider Physician Assistant
DX: R05 Cough (principal); R09.81 Nasal congestion; R50.9 Fever, unspecified; R53.83 Other fatigue; Z20.822 Contact with and (suspected) exposure to COVID-19
CPT/HCPCS: 87635

== ENCOUNTER 2020-10-01 20:25 | Emergency (ER) | payer OTHER, MEDICAID, SELFPAY ==
[2020-10-01 20:28] VITALS: BP 155/67; PULSE 110; RESP 18; TEMP 36.6; O2SAT 100
[2020-10-01] MEDS: diphenhydrAMINE 25 MG TABLET 50 MG PO (20:38)
[2020-10-01] MEDS: predniSONE 20 MG TABLET PO (20:38)
--- NOTE | 2020-10-01 22:00 | ED.ALLEREA ---
HPI - Allergic Reaction General Chief complaint: Allergic Reaction Stated complaint: possible allergic rxn to medication Time Seen by Provider: 10/01/20 20:33 Source: patient Mode of arrival: Ambulatory History of Present Illness HPI narrative: 25-year-old female who is here for evaluation of potential allergic reaction. She states that at about noon today she took a 1st dose of Augmentin. She states she was given this by her dentist for concerns that a sinus infection was causing dental pain in her upper 2 teeth. She has never taken this medication in the past. Approximately 30 minutes after taking the medicine she noticed some swelling in her upper lip that has now extended to her left cheek. No problems breathing. No problems swallowing. No vomiting. No skin rash. She did not tried anything for the symptoms prior to arrival. Related Data Previous Rx's Medication Instructions Recorded sumatriptan succinate 25 mg tablet See Rx Instructions PO .COMPLEX 04/25/20 #10 tab topiramate 100 mg tablet 100 mg PO BID #60 tab 04/25/20 sertraline 100 mg tablet 150 mg PO DAILY #45 tab 04/26/20 metformin 500 mg tablet 500 mg PO BID #60 tab 05/21/20 azithromycin 250 mg tablet See Rx Instructions .ROUTE 10/01/20 .COMPLEX #6 tab prednisone 20 mg tablet 20 mg PO DAILY 3 Days #3 tab 10/01/20 Allergies Allergy/AdvReac Type Severity Reaction Status Date / Time amoxicillin [From Augmentin] Allergy Verified 10/01/20 20:31 clavulanic acid Allergy Verified 10/01/20 20:31 [From Augmentin] Review of Systems Constitutional Constitutional: Reports system reviewed and no additional complaints, except as documented Eyes Eyes: Reports system reviewed and no additional complaints, except as documented ENT Ears, Nose, Mouth, and Throat: Reports as per HPI, Denies throat swelling and Denies tongue swelling Cardiovascular Cardiovascular: Reports system reviewed and no additional complaints, except as documented Respiratory Respiratory: Reports system reviewed and no additional complaints, except as documented Gastrointestinal Gastrointestinal: Reports system reviewed and no additional complaints, except as documented Musculoskeletal Musculoskeletal: Reports system reviewed and no additional complaints, except as documented Integumentary/Breasts Skin/Breast: Reports system reviewed and no additional complaints, except as documented Neurologic Neurologic: Reports system reviewed and no additional complaints, except as documented Endocrine Endocrine: Reports system reviewed and no additional complaints, except as documented Hematologic/Lymphatic On Anticoagulants: No Allergic/Immunologic Allergic/Immunologic: Denies urticaria, Denies throat swelling and Denies tongue swelling Patient History Medical History Depression Depression Fracture Generalized anxiety disorder Hirsutism PCOS (polycystic ovarian syndrome) Surgical History [place] teeth extracted Family History Father Hypertension CVA (cerebral vascular accident) Social History marital status: unmarried,single number of children: 0 lives independently: Yes education level: high school occupational status: unemployed Smoking Status: Never smoker alcohol intake: current (social) substance use type: does not use Smoking Status: Never smoker tobacco type: vaping alcohol intake frequency: 0-2 drinks per day Substance Use Type: marijuana Exam Initial Vital Signs Initial Vital Signs: Vital Signs Temperature 97.9 F 10/01/20 20:28 Pulse Rate 110 H 10/01/20 20:28 Respiratory Rate 18 10/01/20 20:28 Blood Pressure 155/67 H 10/01/20 20:28 Pulse Oximetry 100 10/01/20 20:28 Const General: cooperative, healthy appearing and comfortable HENND Head: normal to inspection and normocephalic Face and sinus: no erythema and edema on the left upper lip Mouth: oral mucosae normal, tongue normal and moist mucous membranes Teeth and gingiva: dentition normal Throat: posterior oropharynx normal Eyes General: appearance normal, both eyes and all related structures Resp Effort & Inspection: normal respiratory effort Auscultation: clear to auscultation bilaterally Cardio Rate: regular rate Rhythm: regular rhythm Skin General: no rashes or lesions noted Neuro General: patient alert, patient awake and moves all extremities Extrem General: normal to inspection and capillary refill normal Psych Appearance: grossly normal and well kempt Course Orders Ordered: Discontinued Medications Diphenhydramine HCl (Diphenhydramine 25 Mg Tablet) 50 mg PO NOW ONE Stop: 10/01/20 20:34 Last Admin: 10/01/20 20:38 Dose: 50 mg Documented by: JAYSON Prednisone (Prednisone 20 Mg Tablet) 20 mg PO NOW ONE Stop: 10/01/20 20:34 Last Admin: 08/03/21 20:38 Dose: 20 mg Documented by: JAYSON Vital Signs Vital signs: Vital Signs - 8 hr 10/01/20 22:47 Pulse Rate 104 H Respiratory Rate 14 Blood Pressure 135/70 Pulse Oximetry 98 MDM - Allergic Reaction MDM Narrative Medical decision making narrative: Patient was given Benadryl and steroids by mouth upon arrival. She was observed in the emergency department for a period of time afterwards without any worsening of the symptoms. She is not having any problems breathing. No other signs of anaphylaxis. Considered that the swelling was actually a dental infection rather than and allergic reaction however given the proximity of the onset of the symptoms after the 1st time she has taken the amoxicillin I would have to assume that it was an allergic reaction to this medicine. Will switch her to azithromycin. Also put her on steroids for the next couple days. Discharge home with strict return precautions. She expressed understanding agreement. Discharge Plan Departure Patient Disposition: Home Clinical Impression: Allergic reaction Instructions: DI for Adverse Drug Reaction -- Allergic Activity Restrictions/Additional Instructions: I recommend that you stop taking the antibiotic that you were prescribed as I feel that the swelling today is most likely an allergic reaction. We will start you on a new antibiotic and also some steroids. Start taking them tomorrow as directed. Return to the emergency department for any new or worsening symptoms Prescriptions: New azithromycin 250 mg tablet See Rx Instructions .ROUTE .COMPLEX Qty: 6 RF: 0 prednisone 20 mg tablet 20 mg PO DAILY 3 Days Qty: 3 RF: 0 No Action sumatriptan succinate 25 mg tablet See Rx Instructions PO .COMPLEX Qty: 10 RF: 3 topiramate 100 mg tablet 100 mg PO BID Qty: 60 RF: 2 sertraline 100 mg tablet 150 mg PO DAILY Qty: 45 RF: 2 metformin 500 mg tablet 500 mg PO BID Qty: 60 RF: 2 Referrals: Ciara Lopes DO [Primary Care Provider] -
[2020-10-01 22:47] VITALS: BP 135/70; PULSE 104; RESP 14; O2SAT 98
== END 2020-10-01 23:05 | disposition home or self-care (01) ==
PROVIDERS: Emergency Provider Emergency Medicine; PCP Family Medicine
DX: T78.40XA Allergy, unspecified, initial encounter (principal); R22.0 Localized swelling, mass and lump, head
CPT/HCPCS: 99283

== ENCOUNTER 2021-01-01 07:53 | Emergency (ER) | payer OTHER, MEDICAID, SELFPAY ==
[2021-01-01 07:55] VITALS: BP 132/75; PULSE 91; RESP 18; TEMP 36.2; O2SAT 99; BMI 37.8
[2021-01-01 08:00] VITALS: BP 132/75; PULSE 91; RESP 18; O2SAT 98
--- NOTE | 2021-01-01 08:09 | ED_ITS ---
HPI - General Adult General Chief complaint: Headache Stated complaint: Migraine Time Seen by Provider: 01/01/21 08:01 Source: patient Mode of arrival: Ambulatory Limitations: no limitations History of Present Illness HPI narrative: Patient is a 25-year-old female. Has history of migraine headaches. Does have both preventative and abortive medications however she is out of these medications. Three days ago started to have 1 of her typical migraines. Dislocated behind her eyes. Gradual onset. No fevers. No neck pain. Some nausea but no vomiting. No chest pain. No shortness of breath. She states this does feel like 1 of her prior migraines. Contacted her primary doctor who could not get her in so she came to the emergency department. She has been to the emergency department in the past for headaches. Medications have helped in the past Related Data Previous Rx's Medication Instructions Recorded sumatriptan succinate 25 mg tablet See Rx Instructions PO .COMPLEX 04/25/20 #10 tab topiramate 100 mg tablet 100 mg PO BID #60 tab 04/25/20 sertraline 100 mg tablet 150 mg PO DAILY #45 tab 04/26/20 metformin 500 mg tablet 500 mg PO BID #60 tab 05/21/20 azithromycin 250 mg tablet See Rx Instructions .ROUTE 10/01/20 .COMPLEX #6 tab Allergies Allergy/AdvReac Type Severity Reaction Status Date / Time amoxicillin [From Augmentin] Allergy Verified 10/01/20 20:31 clavulanic acid Allergy Verified 10/01/20 20:31 [From Augmentin] Review of Systems Constitutional Constitutional: Denies fever(s) and Reports headache(s) Eyes Eyes: Reports photophobia ENT Ears, Nose, Mouth, and Throat: Reports system reviewed and no additional complaints, except as documented, Denies vertigo, Denies dizziness and Reports headache(s) Cardiovascular Cardiovascular: Reports system reviewed and no additional complaints, except as documented Respiratory Respiratory: Reports system reviewed and no additional complaints, except as documented Gastrointestinal Gastrointestinal: Reports as per HPI and Reports system reviewed and no additional complaints, except as documented Integumentary/Breasts Skin/Breast: Reports system reviewed and no additional complaints, except as documented Neurologic Neurologic: Reports system reviewed and no additional complaints, except as documented, Denies vertigo, Denies dizziness and Reports headache(s) Hematologic/Lymphatic On Anticoagulants: No Allergic/Immunologic Allergic/Immunologic: Reports system reviewed and no additional complaints, except as documented Patient History Medical History (Updated 01/01/21 @ 09:49 by Be Ibrahim DO) Depression Depression Fracture Generalized anxiety disorder Hirsutism PCOS (polycystic ovarian syndrome) Surgical History [place] teeth extracted Family History Father Hypertension CVA (cerebral vascular accident) Social History marital status: unmarried,single number of children: 0 lives independently: Yes education level: high school occupational status: unemployed Smoking Status: Never smoker alcohol intake: current (social) substance use type: does not use Smoking Status: Never smoker tobacco type: vaping alcohol intake frequency: 0-2 drinks per day Substance Use Type: marijuana Exam Initial Vital Signs Initial Vital Signs: Vital Signs Temperature 97.1 F L 01/01/21 07:55 Pulse Rate 91 H 01/01/21 07:55 Respiratory Rate 18 01/01/21 07:55 Blood Pressure 132/75 01/01/21 07:55 Pulse Oximetry 99 01/01/21 07:55 Const General: cooperative, healthy appearing, comfortable, well developed and well groomed HENMT Head: normal to inspection and normocephalic Eyes Pupils: PERRL EOM: EOM intact bilaterally Neck Neck: normal visual inspection Chest Chest: normal inspection of the chest Resp Effort & Inspection: normal respiratory effort Cardio Rate: regular rate Rhythm: regular rhythm GI Inspection: normal to inspection Skin General: no rashes or lesions noted Neuro General: patient alert, patient awake, patient oriented x3 and moves all extremities Cranial Nerves: CN's II-XI intact bilaterally Cognition: normal cognition Speech: speech normal Gait: normal gait Sensory Exam: no sensory deficits noted Extrem General: normal to inspection and capillary refill normal Psych Appearance: grossly normal Course Orders Ordered: ED Orders 01/01/21 08:12 Basic Metabolic Panel Stat Complete Blood Count AUTO DIFF Stat Test Serum,Qual Stat Discontinued Medications Acetaminophen (Acetaminophen 325 Mg Tablet) 650 mg PO NOW ONE Stop: 01/01/21 08:09 Last Admin: 01/01/21 08:20 Dose: 650 mg Documented by: BUNNY Diphenhydramine HCl (Diphenhydramine 50 Mg/Ml Vial) 25 mg IV NOW ONE Stop: 01/01/21 08:09 Last Admin: 01/01/21 08:20 Dose: 25 mg Documented by: BUNNY Sodium Chloride (Normal Saline 0.9%) 1,000 mls @ 1,000 mls/hr IV BOLUS ONE Stop: 01/01/21 09:07 Last Infusion: 01/01/21 09:29 Dose: 0 mls/hr Documented by: Admin: 01/01/21 08:20 Dose: 1,000 mls/hr Documented by: BUNNY Metoclopramide HCl (Metoclopramide 10 Mg/2 Ml Inj) 10 mg IV NOW ONE Stop: 01/01/21 08:09 Last Admin: 01/01/21 08:20 Dose: 10 mg Documented by: BUNNY Vital Signs Vital signs: Vital Signs - 8 hr 01/01/21 07:55 01/01/21 08:00 01/01/21 08:30 Temperature 97.1 F L Pulse Rate 91 H 91 H 68 Respiratory Rate 18 18 18 Blood Pressure 132/75 132/75 Pulse Oximetry 99 98 98 01/01/21 09:00 01/01/21 09:30 Temperature Pulse Rate 70 64 Respiratory Rate 18 18 Blood Pressure 132/78 Pulse Oximetry 98 98 Medical Decision Making Medical Records Medical records reviewed: Yes I reviewed the patient's medical records. Lab Data Lab results reviewed: Yes I reviewed the patient's lab results. Result diagrams: 01/01/21 08:12 01/01/21 08:12 Labs: Lab Results 01/01/21 01/01/21 01/01/21 Range/Units 08:12 08:12 08:12 WBC 6.0 (4.5-11.0) X10^3/uL RBC 5.46 H (4.0-5.2) X10^6/uL Hgb 13.2 (12.0-16.0) g/dL Hct 41.3 (36-46) % MCV 75.7 L (80-100) fL MCH 24.2 L (26-34) PG MCHC 31.9 (30-36) % RDW 16.1 H (11.6-14.8) % Plt Count 312 (150-400) X10^3/uL Neut % (Auto) 61.5 (50-75) % Lymph % (Auto) 30.6 (25-40) % Kimble % (Auto) 5.5 (3-14) % Eos % (Auto) 1.5 L (2-4) % Baso % (Auto) 0.9 (0-2) % Neut # (Auto) 3700 (9841-3009) /uL Lymph # (Auto) 1800 (7362-1599) /uL Kimble # (Auto) 300 (0-900) /uL Eos # (Auto) 100 (0-450) /uL Baso # (Auto) 100 (0-100) /uL Sodium 140 (137-145) mmol/L Potassium 4.4 (3.4-5.1) mmol/L Chloride 107 (98-107) mmol/L Carbon Dioxide 23 (22-32) mmol/L BUN 8 (7-17) mg/dL Creatinine 0.59 (0.52-1.04) mg/dL Estimated GFR > 60.0 (>60) mL/min BUN/Creatinine Ratio 13.6 (6-22) Glucose 123 H (70-100) mg/dL Calcium 9.6 (8.4-10.2) mg/dL Serum , Qual Negative (Negative) MDM Narrative Medical decision making narrative: Patient reports improvement of headache after medications given here in the emergency department. No indication for radiologic studies. Low suspicion for meningitis. Low suspicion for intracranial hemorrhage based on her presentation and history today. Patient states she feels well enough to be discharged home. She was given return precautions and follow-up instructions. She expressed understanding and agreement. Discharge Plan Departure Patient Disposition: Home Clinical Impression: Migraine Instructions: DI for Migraine Activity Restrictions/Additional Instructions: I do recommend that you contact your primary doctor for refill of your medications. You also need a follow-up with her primary doctor. Return to the emergency department for any new or worsening symptoms Prescriptions: No Action sumatriptan succinate 25 mg tablet See Rx Instructions PO .COMPLEX Qty: 10 RF: 3 topiramate 100 mg tablet 100 mg PO BID Qty: 60 RF: 2 sertraline 100 mg tablet 150 mg PO DAILY Qty: 45 RF: 2 metformin 500 mg tablet 500 mg PO BID Qty: 60 RF: 2 azithromycin 250 mg tablet See Rx Instructions .ROUTE .COMPLEX Qty: 6 RF: 0 Referrals: Ciara Lopes DO [Primary Care Provider] - Stand Alone Forms: Work Release Note
[2021-01-01 08:15] LABS: Add Manual Diff / Slide Review NO; Basophils Absolute Auto 100 /uL (0-100); Basophils Percent Auto 0.9 % (0-2); Eosinophils Absolute Auto 100 /uL (0-450); Eosinophils Percent Auto 1.5 % (2-4); Hematocrit 41.3 % (36-46); Hemoglobin 13.2 g/dL (12.0-16.0); Lymphocytes Absolute Auto 1800 /uL (1100-4500); Lymphocytes Percent Auto 30.6 % (25-40); Mean Corpuscular HGB Conc 31.9 % (30-36); Mean Corpuscular Hemoglobin 24.2 PG (26-34); Mean Corpuscular Volume 75.7 fL (80-100); Monocytes Absolute Auto 300 /uL (0-900); Monocytes Percent Auto 5.5 % (3-14); Neutrophils Absolute Auto 3700 /uL (1500-7000); Neutrophils Percent Auto 61.5 % (50-75); Platelet Count 312 X10^3/uL (150-400); Red Blood Cell Count 5.46 X10^6/uL (4.0-5.2); Red Cell Distribution Width 16.1 % (11.6-14.8)
[2021-01-01] MEDS: SODIUM CHLORIDE 0.9% 1,000 ML 1000 ML IV (08:20)
[2021-01-01] MEDS: diphenhydrAMINE 50 MG/ML VIAL 25 MG IV (08:20)
[2021-01-01] MEDS: ACETAMINOPHEN 325 MG TABLET 650 MG PO (08:20)
[2021-01-01] MEDS: METOCLOPRAMIDE 10 MG/2 ML INJ IV (08:20)
[2021-01-01 08:26] LABS: BUN Creatinine Ratio 13.6 (6-22); Blood Urea Nitrogen 8 mg/dL (7-17); Calcium 9.6 mg/dL (8.4-10.2); Carbon Dioxide 23 mmol/L (22-32); Chloride 107 mmol/L (98-107); Estimated Glomerular Filt Rate > 60.0 mL/min (>60); Glucose 123 mg/dL (70-100); HEMOLYSIS 25 (0-50); Potassium 4.4 mmol/L (3.4-5.1); Sodium 140 mmol/L (137-145)
[2021-01-01 08:30] VITALS: PULSE 68; RESP 18; O2SAT 98
[2021-01-01 08:46] LABS: Pregnancy Test Serum,Qual Negative (Negative)
[2021-01-01 09:00] VITALS: PULSE 70; RESP 18; O2SAT 98
[2021-01-01 09:30] VITALS: BP 132/78; PULSE 64; RESP 18; O2SAT 98
== END 2021-01-01 09:55 | disposition home or self-care (01) ==
PROVIDERS: Emergency Provider Emergency Medicine; PCP Family Medicine
DX: G43.009 Migraine without aura, not intractable, without status migrainosus (principal)
CPT/HCPCS: 36415; 80048; 84703; 85025; 96361; 96374; 96375; 99284; J1200; J2765

== ENCOUNTER → 2021-01-12 09:28 | Outpatient (CLI) | payer OTHER, MEDICAID, SELFPAY ==
[2021-01-12 10:31] LABS: Influenza A - CEPHEID Flu A NEGATIVE (NEGATIVE); Influenza B - CEPHEID Flu B NEGATIVE (NEGATIVE)
[2021-01-12 10:42] LABS: COVID19 -Nasal RAPID Negative (Negative)
== END ==
PROVIDERS: PCP Family Medicine; Referring Provider Nurse Practitioner Family; Visit Provider Nurse Practitioner Family
DX: Z20.822 Contact with and (suspected) exposure to COVID-19 (principal); J06.9 Acute upper respiratory infection, unspecified
CPT/HCPCS: 87502; 87635

== ENCOUNTER → 2021-01-21 11:07 | Outpatient (CLI) | payer OTHER, MEDICAID, SELFPAY ==
[2021-01-21 12:28] LABS: Influenza A - CEPHEID Flu A NEGATIVE (NEGATIVE); Influenza B - CEPHEID Flu B NEGATIVE (NEGATIVE)
[2021-01-21 12:34] LABS: COVID19 -Nasal RAPID Negative (Negative)
== END ==
PROVIDERS: PCP Family Medicine; Visit Provider Physician Assistant
DX: Z20.822 Contact with and (suspected) exposure to COVID-19 (principal); J06.9 Acute upper respiratory infection, unspecified
CPT/HCPCS: 87502; 87635

== ENCOUNTER → 2021-01-25 10:37 | Outpatient (CLI) | payer OTHER, MEDICAID, SELFPAY ==
[2021-01-25 11:41] LABS: COVID19 -Nasal RAPID Negative (Negative)
== END ==
PROVIDERS: PCP Family Medicine; Visit Provider Physician Assistant
DX: Z20.822 Contact with and (suspected) exposure to COVID-19 (principal)
CPT/HCPCS: 87635

== ENCOUNTER 2021-02-05 01:54 | Emergency (ER) | payer OTHER, MEDICAID, SELFPAY ==
[2021-02-05 01:59] VITALS: BP 172/89; PULSE 95; RESP 22; TEMP 37; O2SAT 97
--- NOTE | 2021-02-05 02:08 | ED_ITS ---
HPI - General Adult General Chief complaint: Upper Respiratory Symptoms Stated complaint: dental/sinus pain x4 days Time Seen by Provider: 02/05/21 02:01 Source: patient Mode of arrival: Ambulatory History of Present Illness HPI narrative: 25-year-old female who is here for evaluation of pain in her upper teeth. She has had issues like this in the past. States she was placed on antibiotics. She tried to get in to see a dentist but they told her that their x-ray machine was not working and so they needed to reschedule her appointment. She woke up this evening with discomfort took some Advil with only minimal relief. Related Data Previous Rx's Medication Instructions Recorded sumatriptan succinate 25 mg tablet See Rx Instructions PO .COMPLEX 01/14/21 #10 tab topiramate 50 mg tablet 100 mg PO BID #120 tab 01/14/21 penicillin V potassium 500 mg 500 mg PO QID 7 Days #28 tab 02/05/21 tablet Allergies Allergy/AdvReac Type Severity Reaction Status Date / Time amoxicillin [From Augmentin] Allergy Verified 01/12/21 09:37 clavulanic acid Allergy Verified 01/12/21 09:37 [From Augmentin] Review of Systems Constitutional Constitutional: Denies fever(s) ENT Ears, Nose, Mouth, and Throat: Reports system reviewed and no additional complaints, except as documented and Reports as per HPI Respiratory Respiratory: Reports system reviewed and no additional complaints, except as documented Integumentary/Breasts Skin/Breast: Reports system reviewed and no additional complaints, except as documented Hematologic/Lymphatic On Anticoagulants: No Patient History Medical History Depression Fracture Generalized anxiety disorder Hirsutism Migraines Morbid obesity with BMI of 40.0-44.9, adult PCOS (polycystic ovarian syndrome) Surgical History [place] teeth extracted Family History Father Hypertension CVA (cerebral vascular accident) Social History marital status: unmarried,single number of children: 0 lives independently: Yes education level: high school occupational status: unemployed Smoking Status: Current some day smoker alcohol intake: current substance use type: does not use Smoking Status: Current some day smoker tobacco type: vaping alcohol intake frequency: 0-2 drinks per day Substance Use Type: marijuana Exam Initial Vital Signs Initial Vital Signs: Vital Signs Temperature 98.6 F 02/05/21 01:59 Pulse Rate 95 H 02/05/21 01:59 Respiratory Rate 22 02/05/21 01:59 Blood Pressure 172/89 H 02/05/21 01:59 Pulse Oximetry 97 02/05/21 01:59 HENMT Head: normal to inspection and normocephalic Mouth: lip normal and moist mucous membranes Teeth and gingiva: poor dentition Throat: posterior oropharynx normal Resp Effort & Inspection: normal respiratory effort Cardio Rate: regular rate Skin General: no rashes or lesions noted Neuro General: patient alert, patient awake and moves all extremities Extrem General: normal to inspection and capillary refill normal Psych Appearance: grossly normal and well kempt Course Orders Ordered: Discontinued Medications Penicillin V Potassium (Penicillin Vk 250 Mg Tablet) 500 mg PO NOW ONE Stop: 02/05/21 02:09 Last Admin: 02/05/21 02:19 Dose: 500 mg Documented by: JAYSON Vital Signs Vital signs: Vital Signs - 8 hr 02/05/21 01:59 Temperature 98.6 F Pulse Rate 95 H Respiratory Rate 22 Blood Pressure 172/89 H Pulse Oximetry 97 Medical Decision Making [facility] Narrative Medical decision making narrative: Patient does have some redness located above the front 2 incisors. There is no definitive abscess seen that would require drainage here in the ER. She does have poor dentition with what appears to be multiple caries. Informed her that she does need to follow up with a dentist for definitive treatment. Will start the patient on antibiotics. She states that she has tolerated penicillin in the past. She has also had amoxicillin in the past. It was when she was placed on Augmentin that she had a reaction that she states was swelling to her left cheek. She feels that she can tolerate penicillin without issues. She was given a 1st dose here in the ER and was sent home with a prescription for the remainder the course. She was given return precautions. She expressed understanding and agreement. Discharge Plan Departure Patient Disposition: Home Clinical Impression: Dental infection Instructions: DI for Dental Pain Activity Restrictions/Additional Instructions: It is important that you follow-up with a dentist as you will need to see them for poor definitive treatment of your symptoms. We do need to start you on antibiotics. You were given a 1st dose here in the emergency department and a prescription was sent to [facility] here in [place]. Return to the emergency d epartment for any new or worsening symptoms Prescriptions: New penicillin V potassium 500 mg tablet 500 mg PO QID 7 Days Qty: 28 0RF No Action topiramate 50 mg tablet 100 mg PO BID Qty: 120 2RF sumatriptan succinate 25 mg tablet See Rx Instructions PO .COMPLEX Qty: 10 3RF Rx Instructions: take 1 tab at onset of headache; if no relief may repeat 1 tab after at least 2 hrs; max = 4 tabs/24 hr PO Referrals: Ciara Lopes DO [Primary Care Provider] -
[2021-02-05] MEDS: PENICILLIN VK 250 MG TABLET 500 MG PO (02:19)
== END 2021-02-05 02:19 | disposition home or self-care (01) ==
PROVIDERS: Emergency Provider Emergency Medicine; PCP Family Medicine
DX: K04.7 Periapical abscess without sinus (principal); Z88.0 Allergy status to penicillin; F17.290 Nicotine dependence, other tobacco product, uncomplicated
CPT/HCPCS: 99283

== ENCOUNTER 2021-05-08 06:37 | Emergency (ER) | payer OTHER, MEDICAID, SELFPAY ==
[2021-05-08 06:49] VITALS: BP 163/87; PULSE 74; RESP 18; TEMP 36.9; O2SAT 96; BMI 38.6
--- NOTE | 2021-05-08 07:06 | ED.NAVMDI ---
HPI - Nausea/Vomiting/Diarrhea General Chief complaint: Nausea/Vomiting/Diarrhea Stated complaint: d/v/n Time Seen by Provider: 05/08/21 06:51 Source: patient Mode of arrival: Ambulatory History of Present Illness HPI Narrative: Patient is a 25-year-old female with history of migraines presenting today with nausea vomiting and diarrhea that started about 2 hours ago. She says she is actually frequently nauseous she thinks the past to do with stress. However this morning on the way to work she vomited and when she got to work she vomited again and had an episode of diarrhea. That point work told her to come to the emergency department for further evaluation. She has no abdominal pain she is not dizzy she is not lightheaded she has not had any fever. She was nauseous yesterday but that is not out of normal for her. Related Data Previous Rx's Medication Instructions Recorded sumatriptan succinate 25 mg tablet See Rx Instructions PO .COMPLEX 01/14/21 #10 tab topiramate 50 mg tablet 100 mg PO BID #120 tab 01/14/21 ondansetron 4 mg disintegrating 4 mg PO Q8H PRN #10 tab 05/08/21 tablet Allergies Allergy/AdvReac Type Severity Reaction Status Date / Time amoxicillin [From Augmentin] Allergy Verified 01/12/21 09:37 clavulanic acid Allergy Verified 01/12/21 09:37 [From Augmentin] Review of Systems Review of Systems Narrative: GENERAL: Denies chills, fatigue, malaise, fever, sweats, travel HEENT: Denies sinus pain, ear pain, sore throat, difficulty swallowing, neck pain RESPIRATORY: See HPI CARDIOVASCULAR: Denies chest pain, palpitations, orthopnea, edema GASTROINTESTINAL: Denies nausea, vomiting, abdominal pain, diarrhea, constipation, melena. : Denies dysuria, frequency, incontinence, hematuria, urinary retention, flank pain. MUSCULOSKELETAL: Denies weakness, joint pain, or bony pain SKIN: No rash, no erythema, no pruritus NEUROLOGIC: Denies weakness, dizziness, headache, numbness, change in speech, confusion PSYCHIATRIC: No concerning psychosocial issues. 12 point review of systems is negative except for those stated above and HPI Patient History Medical History Depression Fracture Generalized anxiety disorder Hirsutism Migraines Morbid obesity with BMI of 40.0-44.9, adult PCOS (polycystic ovarian syndrome) Surgical History [place] teeth extracted Family History Father Hypertension CVA (cerebral vascular accident) Social History marital status: unmarried,single number of children: 0 lives independently: Yes education level: high school occupational status: unemployed Smoking Status: Current some day smoker alcohol intake: current substance use type: does not use Smoking Status: Current some day smoker tobacco type: vaping alcohol intake frequency: 0-2 drinks per day Substance Use Type: marijuana Exam Initial Vital Signs Initial Vital Signs: Vital Signs Temperature 98.4 F 05/08/21 06:49 Pulse Rate 74 05/08/21 06:49 Respiratory Rate 18 05/08/21 06:49 Blood Pressure 163/87 H 05/08/21 06:49 Pulse Oximetry 96 05/08/21 06:49 GENERAL: Alert well-appearing 25-year-old female HEENT: Head atraumatic,EOMI, pupils reactive, face symmetric, moist mucous membranes CARDIOVASCULAR: Regular rate and rhythm without murmurs, rubs or gallops. RESPIRATORY: Breath sounds equal bilaterally, no wheezes rales or rhonchi. ABDOMEN: Soft, nontender. Normoactive bowel sounds all 4 quadrants. No guarding or rebound. EXTREMITIES: Normal range of motion, no clubbing or edema. Neurovascularly intact NEUROLOGICAL: Alert and oriented x4.Normal gait and speech. SKIN: Warm, dry, no laceration, no petechiae, no rashes or lesions. Course Orders Ordered: Discontinued Medications Ondansetron HCl (Ondansetron 4 Mg Odt) 4 mg SL NOW ONE Stop: 05/08/21 06:56 Last Admin: 05/08/21 07:18 Dose: 4 mg Documented by: TURNER Vital Signs Vital signs: Vital Signs - 8 hr 05/08/21 06:49 05/08/21 07:31 Temperature 98.4 F Pulse Rate 74 80 Respiratory Rate 18 18 Blood Pressure 163/87 H 142/70 H Pulse Oximetry 96 98 MDM - Nausea/Vomiting/Diarrhea Lab Data Labs: Point of Care Testing Test Results Negative MDM Narrative Medical decision making narrative: Patient has had 2 episodes of vomiting 1 episode of diarrhea in the last 2 hours. At this time she is not dehydrated. She is given oral Zofran tolerating oral fluids. She is not . At this time likely a viral gastroenteritis. Discussed with her oral rehydration technique and when to return to the ER. Discharge Plan Departure Patient Disposition: Home Clinical Impression: Gastroenteritis Instructions: DI for Viral Gastroenteritis -- Adult Activity Restrictions/Additional Instructions: 1) You have been diagnosed with gastroenteritis 2) What to do: Drink frequent but small amounts of fluids. I recommend Gatorade or a Gatorade-like product, as it has small amounts of sugar and salts that improve fluid retention. 3) Take medications as directed Zofran 4 mg every 8 hours if needed for nausea vomiting--> SENT TO [facility] 4) Follow up with your primary care provider in 2-3 days 5) Return to ER if you should have any new or worsening symptoms such as, unable to hold down fluids despite use of anti-nausea medications and the small volume oral rehydration strategy. Prescriptions: New ondansetron 4 mg tablet,disintegrating 4 mg PO Q8H PRN (Reason: nausea and vomiting) Qty: 10 0RF No Action topiramate 50 mg tablet 100 mg PO BID Qty: 120 2RF sumatriptan succinate 25 mg tablet See Rx Instructions PO .COMPLEX Qty: 10 3RF Rx Instructions: take 1 tab at onset of headache; if no relief may repeat 1 tab after at least 2 hrs; max = 4 tabs/24 hr PO Referrals: Ciara Lopes DO [Primary Care Provider] - Stand Alone Forms: Work Release Note
[2021-05-08] MEDS: ONDANSETRON 4 MG ODT SL (07:18)
[2021-05-08 07:31] VITALS: BP 142/70; PULSE 80; RESP 18; O2SAT 98
== END 2021-05-08 08:25 | disposition home or self-care (01) ==
PROVIDERS: Emergency Provider Emergency Medicine; PCP Family Medicine
DX: K52.9 Noninfective gastroenteritis and colitis, unspecified (principal); F17.290 Nicotine dependence, other tobacco product, uncomplicated
CPT/HCPCS: 81025; 99283

== ENCOUNTER 2021-05-14 10:06 | Emergency (ER) | payer OTHER, MEDICAID, SELFPAY ==
[2021-05-14 10:10] VITALS: BP 175/86; PULSE 91; RESP 16; TEMP 36.9; O2SAT 98; BMI 38.6
[2021-05-14 10:27] VITALS: PULSE 90; O2SAT 97
[2021-05-14 10:29] VITALS: BP 121/70; PULSE 93; O2SAT 97
[2021-05-14 10:30] VITALS: BP 132/72; PULSE 89; O2SAT 97
--- NOTE | 2021-05-14 10:35 | ED.ABDPAIN ---
HPI - Abdominal Pain General Chief Complaint: Abdominal Pain Stated Complaint: N/V, abd pain Time Seen by Provider: 05/14/21 10:13 Source: patient Mode of arrival: Ambulatory History of Present Illness HPI narrative: Patient is a 25-year-old female who presents with vomiting and diarrhea. She was actually seen evaluated here on May 08 at that time she had only had 2 hours of symptoms however symptoms have continued. She has had multiple episodes of diarrhea she says she goes every day, multiple times a day. It is nonbloody. She is having some upper epigastric cramping at times. She is still vomiting. No fever or chills. She has Zofran at home but she says it is overall not a. Related Data Previous Rx's Medication Instructions Recorded sumatriptan succinate 25 mg tablet See Rx Instructions PO .COMPLEX 01/14/21 #10 tab topiramate 50 mg tablet 100 mg PO BID #120 tab 01/14/21 ondansetron 4 mg disintegrating 4 mg PO Q8H PRN #10 tab 05/08/21 tablet metoclopramide HCl 10 mg tablet 10 mg PO Q6H PRN #20 tab 05/14/21 (Reglan) Allergies Allergy/AdvReac Type Severity Reaction Status Date / Time amoxicillin [From Augmentin] Allergy Verified 05/14/21 10:35 clavulanic acid Allergy Verified 05/14/21 10:35 [From Augmentin] Review of Systems Review of Systems Narrative: GENERAL: Denies chills, fatigue, malaise, fever, sweats, travel HEENT: Denies sinus pain, ear pain, sore throat, difficulty swallowing, neck pain RESPIRATORY: Denies dyspnea, cough, wheezing, hemoptysis, sputum. CARDIOVASCULAR: Denies chest pain, palpitations, orthopnea, edema GASTROINTESTINAL: See HPI : Denies dysuria, frequency, incontinence, hematuria, urinary retention, flank pain. MUSCULOSKELETAL: Denies weakness, joint pain, or bony pain SKIN: No rash, no erythema, no pruritus NEUROLOGIC: Denies weakness, dizziness, headache, numbness, change in speech, confusion PSYCHIATRIC: No concerning psychosocial issues. 12 point review of systems is negative except for those stated above and HPI Patient History Medical History Depression Fracture Generalized anxiety disorder Hirsutism Migraines Morbid obesity with BMI of 40.0-44.9, adult PCOS (polycystic ovarian syndrome) Surgical History [place] teeth extracted Family History Father Hypertension CVA (cerebral vascular accident) Social History marital status: unmarried,single number of children: 0 lives independently: Yes education level: high school occupational status: unemployed Smoking Status: Current some day smoker alcohol intake: current substance use type: does not use Smoking Status: Current some day smoker tobacco type: vaping alcohol intake frequency: 0-2 drinks per day Substance Use Type: marijuana Exam Initial Vital Signs Initial Vital Signs: Vital Signs Temperature 98.5 F 05/14/21 10:10 Pulse Rate 91 H 05/14/21 10:10 Respiratory Rate 16 05/14/21 10:10 Blood Pressure 175/86 H 05/14/21 10:10 Pulse Oximetry 98 05/14/21 10:10 GENERAL: Alert 25-year-old female no acute distress BMI 38 HEENT: Head atraumatic,EOMI, pupils reactive, face symmetric, moist mucous membranes CARDIOVASCULAR: Regular rate and rhythm without murmurs, rubs or gallops. RESPIRATORY: Breath sounds equal bilaterally, no wheezes rales or rhonchi. ABDOMEN: Soft, minimal epigastric pain mild right upper quadrant pain no guarding rebound no lower abdominal pain. : No CVA tenderness EXTREMITIES: Normal range of motion, no clubbing or edema. Neurovascularly intact NEUROLOGICAL: Alert and oriented x4.Normal gait and speech SKIN: Warm, dry, no laceration, no petechiae, no rashes or lesions. Course Orders Ordered: ED Orders 05/14/21 10:20 Complete Blood Count AUTO DIFF Stat Comprehensive Metabolic Panel Stat Lipase Stat 05/14/21 10:45 US abdomen limited Stat 05/14/21 10:56 GI Panel (Film Array) Stat Discontinued Medications Sodium Chloride (Normal Saline 0.9%) 1,000 mls @ 1,000 mls/hr IV BOLUS ONE Stop: 05/14/21 11:44 Last Infusion: 05/14/21 12:26 Dose: 0 mls/hr Documented by: Admin: 05/14/21 10:55 Dose: 1,000 mls/hr Documented by: PARI Ketorolac Tromethamine (Ketorolac 30 Mg/Ml Vial) 15 mg IV NOW ONE Stop: 05/14/21 10:46 Last Admin: 05/14/21 10:54 Dose: 15 mg Documented by: PARI Ondansetron HCl (Ondansetron 4 Mg/2 Ml Inj) 4 mg IV NOW ONE Stop: 05/14/21 10:46 Last Admin: 05/14/21 10:55 Dose: 4 mg Documented by: PARI Pantoprazole Sodium (Pantoprazole 40 Mg Vial) 40 mg IV NOW ONE Stop: 05/14/21 10:46 Last Admin: 05/14/21 10:55 Dose: 40 mg Documented by: PARI Vital Signs Vital signs: Vital Signs - 8 hr 05/14/21 10:10 05/14/21 10:27 05/14/21 10:29 Temperature 98.5 F Pulse Rate 91 H 90 93 H Respiratory Rate 16 Blood Pressure 175/86 H 121/70 Pulse Oximetry 98 97 97 05/14/21 10:30 05/14/21 13:16 Temperature Pulse Rate 89 83 Respiratory Rate 16 Blood Pressure 132/72 135/78 Pulse Oximetry 97 96 MDM - Abdominal Pain Lab Data Result diagrams: 05/14/21 10:20 05/14/21 10:20 Labs: Lab Results 05/14/21 05/14/21 05/14/21 Range/Units 10:20 10:20 10:56 WBC 8.1 (4.5-11.0) X10^3/uL RBC 5.72 H (4.0-5.2) X10^6/uL Hgb 13.9 (12.0-16.0) g/dL Hct 43.5 (36-46) % MCV 76.1 L (80-100) fL MCH 24.3 L (26-34) PG MCHC 31.9 (30-36) % RDW 16.7 H (11.6-14.8) % Plt Count 313 (150-400) X10^3/uL Neut % (Auto) 65.9 (50-75) % Lymph % (Auto) 26.6 (25-40) % [place] % (Auto) 6.0 (3-14) % Eos % (Auto) 0.9 L (2-4) % Baso % (Auto) 0.6 (0-2) % Neut # (Auto) 5400 (5277-5049) /uL Lymph # (Auto) 2200 (6439-6746) /uL [place] # (Auto) 500 (0-900) /uL Eos # (Auto) 100 (0-450) /uL Baso # (Auto) 100 (0-100) /uL Sodium 140 (137-145) mmol/L Potassium 4.0 (3.4-5.1) mmol/L Chloride 107 (98-107) mmol/L Carbon Dioxide 22 (22-32) mmol/L BUN 10 (7-17) mg/dL Creatinine 0.58 (0.52-1.04) mg/dL Estimated GFR > 60.0 (>60) mL/min BUN/Creatinine Ratio 17.2 (6-22) Glucose 107 H (70-100) mg/dL Calcium 9.2 (8.4-10.2) mg/dL Total Bilirubin 0.5 (0.2-1.3) mg/dL AST 103 H (14-36) IU/L ALT 146 H (<35) IU/L Alkaline Phosphatase 71 (38-126) U/L Total Protein 8.3 H (6.3-8.2) g/dL Albumin 4.8 (3.5-5.0) g/dL Globulin 3.5 (1.7-4.1) g/dL Albumin/Globulin Ratio 1.4 (1.0-2.8) Lipase 55 (23-300) U/L Stl C. cayetanensis PCR Not detected (Not Detect) Stool Rotavirus (PCR) Not detected (Not Detect) Stool Adenovirus (PCR) Not detected (Not Detect) Stool Astrovirus (PCR) Not detected (Not Detect) Stool Cryptosporidium PCR Not detected (Not Detect) Stl E.coli Shiga Tox PCR Not detected (Not Detect) St Sh/Enteroin Ecoli PCR Not detected (Not Detect) Stool E coli O157 PCR Not Reportable Stl Enterotoxigenic E PCR Not detected (Not Detect) Stool EPEC (PCR) Not detected (Not Detect) Stl E. histolytica PCR Not detected (Not Detect) Stool Giardia Lamblia PCR Not detected (Not Detect) Stool Sapovirus (PCR) Not detected (Not Detect) Stl P. shigelloides PCR Not detected (Not Detect) St Y.enterocolitica PCR Not detected (Not Detect) Stool Vibrio (PCR) Not detected (Not Detect) Stl Vibrio cholerae PCR Not detected (Not Detect) Stl Enteroaggr Ecoli PCR Not detected (Not Detect) Stl Norovirus GI/GII PCR Not detected (Not Detect) Campylobacter (PCR) Not detected (Not Detect) C. difficile Tox (PCR) Not detected (Not Detect) Salmonella (PCR) Not detected (Not Detect) Point of care testing: Point of Care Testing Test Results Negative Urine Dip Bedside Urine Glucose Negative Bedside Urine Bilirubin - Negative Bedside Urine Ketone - Negative Urine Specific [place] 1.020 Bedside Urine Occult Blood - Negative Bedside Urine pH 6 Bedside Urine Protein +/- 15 Bedside Urine Urobilinogen - Negative Bedside Urine Nitrite - Negative Bedside Urine Leukocytes - Negative Esterase Imaging Data US - abdomen: Radiologist's Impression: PROCEDURE:? US ABDOMEN LIMITED ? INDICATIONS:? RUQ ? TECHNIQUE:? Real-time scanning was performed of the right upper quadrant, with image documentation.? ? COMPARISON:? None. ? FINDINGS:? ? Liver:? Normal in size.? Increased in echogenicity. ? Gallbladder:? Nondilated. No stones or sludge. Normal gallbladder wall thickness. No pericholecystic fluid. Negative sonographic Boothe's sign.? ? Biliary ducts:? Intrahepatic bile ducts are non-dilated.? Extrahepatic bile duct caliber measures 3 mm.? Normal is 6-7 mm or less in diameter, or 10 mm or less post-cholecystectomy.? ? Pancreas:? Not well seen.? ? ? IMPRESSION:? 1. No acute cholecystitis.? No gallstones. ? 2. Increased hepatic echogenicity most consistent with hepatic steatosis. Other forms of hepatocellular disease could have similar appearance.? Dictated by: Arden Rodríguez M.D. on 05/14/2021 at 10:19 ? ? Approved by: Arden Rodríguez M.D. on 05/14/2021 at 10:21 ? MDM Narrative Medical decision making narrative: The patient overall appears well. Blood work is reassuring ultrasound is negative. She actually did give us a stool sample in the emergency department he also is negative. Symptoms are still consistent with a gastroenteritis. At this time no need for any further imaging. Recommend increasing fluid intake as tolerated. Discharge Plan Departure Patient Disposition: Home Clinical Impression: Gastroenteritis Instructions: DI for Viral Gastroenteritis -- Adult Activity Restrictions/Additional Instructions: *You have been diagnosed with stomach virus *What to do: At this time continue to increase fluid intake as tolerated. Try Gatorade Pedialyte brought off or any other liquid. *Continue to take medications as directed Reglan 10 mg every 6 hours if needed for nausea or vomiting--> [email or web address] *Follow up with your primary care provider in 2-3 days or call [phone] *Return to ER if you should have worsening diarrhea, persistent vomiting despite medication, increased pain inability to tolerate fluids or any new, worsening or concerning symptoms Prescriptions: New metoclopramide HCl [Reglan] 10 mg tablet 10 mg PO Q6H PRN (Reason: nausea and vomiting) Qty: 20 0RF No Action topiramate 50 mg tablet 100 mg PO BID Qty: 120 2RF sumatriptan succinate 25 mg tablet See Rx Instructions PO .COMPLEX Qty: 10 3RF Rx Instructions: take 1 tab at onset of headache; if no relief may repeat 1 tab after at least 2 hrs; max = 4 tabs/24 hr PO ondansetron 4 mg tablet,disintegrating 4 mg PO Q8H PRN (Reason: nausea and vomiting) Qty: 10 0RF Referrals: Ciara Lopes DO [Primary Care Provider] - Stand Alone Forms: Work Release Note
--- NOTE | 2021-05-14 10:39 | PC.NURSE ---
Pt also reports having PCOS and her periods are very irregular and she is concerned about ovarian cysts
[2021-05-14 10:41] LABS: Add Manual Diff / Slide Review NO; Basophils Absolute Auto 100 /uL (0-100); Basophils Percent Auto 0.6 % (0-2); Eosinophils Absolute Auto 100 /uL (0-450); Eosinophils Percent Auto 0.9 % (2-4); Hematocrit 43.5 % (36-46); Hemoglobin 13.9 g/dL (12.0-16.0); Lymphocytes Absolute Auto 2200 /uL (1100-4500); Lymphocytes Percent Auto 26.6 % (25-40); Mean Corpuscular HGB Conc 31.9 % (30-36); Mean Corpuscular Hemoglobin 24.3 PG (26-34); Mean Corpuscular Volume 76.1 fL (80-100); Monocytes Absolute Auto 500 /uL (0-900); Neutrophils Absolute Auto 5400 /uL (1500-7000); Neutrophils Percent Auto 65.9 % (50-75); Platelet Count 313 X10^3/uL (150-400); Red Blood Cell Count 5.72 X10^6/uL (4.0-5.2); Red Cell Distribution Width 16.7 % (11.6-14.8); White Blood Cell Count 8.1 X10^3/uL (4.5-11.0)
--- NOTE | 2021-05-14 10:45 | DI.US.S_ITS ---
PROCEDURE: US ABDOMEN LIMITED INDICATIONS: RUQ TECHNIQUE: Real-time scanning was performed of the right upper quadrant, with image documentation. COMPARISON: None. FINDINGS: Liver: Normal in size. Increased in echogenicity. Gallbladder: Nondilated. No stones or sludge. Normal gallbladder wall thickness. No pericholecystic fluid. Negative sonographic Boothe's sign. Biliary ducts: Intrahepatic bile ducts are non-dilated. Extrahepatic bile duct caliber measures 3 mm. Normal is 6-7 mm or less in diameter, or 10 mm or less post-cholecystectomy. Pancreas: Not well seen. IMPRESSION: 1. No acute cholecystitis. No gallstones. 2. Increased hepatic echogenicity most consistent with hepatic steatosis. Other forms of hepatocellular disease could have similar appearance. Dictated by: Arden Rodríguez M.D. on 05/14/2021 at 10:19 Approved by: Arden Rodríguez M.D. on 05/14/2021 at 10:21
[2021-05-14 10:51] LABS: Alanine Aminotransferase 146 IU/L (<35); Albumin 4.8 g/dL (3.5-5.0); Albumin Globulin Ratio 1.4 (1.0-2.8); Alkaline Phosphatase 71 U/L (38-126); Aspartate Aminotransferase 103 IU/L (14-36); BUN Creatinine Ratio 17.2 (6-22); Bilirubin Total 0.5 mg/dL (0.2-1.3); Blood Urea Nitrogen 10 mg/dL (7-17); Calcium 9.2 mg/dL (8.4-10.2); Carbon Dioxide 22 mmol/L (22-32); Chloride 107 mmol/L (98-107); Estimated Glomerular Filt Rate > 60.0 mL/min (>60); Globulin 3.5 g/dL (1.7-4.1); Glucose 107 mg/dL (70-100); HEMOLYSIS < 15 (0-50); Lipase 55 U/L (23-300); Sodium 140 mmol/L (137-145); Total Protein 8.3 g/dL (6.3-8.2)
[2021-05-14] MEDS: KETOROLAC 30 MG/ML VIAL 15 MG IV (10:54)
[2021-05-14] MEDS: ONDANSETRON 4 MG/2 ML INJ IV (10:55)
[2021-05-14] MEDS: SODIUM CHLORIDE 0.9% 1,000 ML 1000 ML IV (10:55)
[2021-05-14] MEDS: PANTOPRAZOLE 40 MG VIAL IV (10:55)
[2021-05-14 12:39] LABS: Adenovirus F 40/41 Not Detected (Not Detect); Astrovirus Not Detected (Not Detect); Campylobacter Not Detected (Not Detect); Clostridium difficile toxin AB Not Detected (Not Detect); Cryptosporidium Not Detected (Not Detect); Cyclospora cayetanensis Not Detected (Not Detect); Entamoeba histolytica Not Detected (Not Detect); Enteroaggregative E.coli Not Detected (Not Detect); Enteropathogenic E.coli Not Detected (Not Detect); Enterotoxigenic E.coli It/st Not Detected (Not Detect); Giardia lamblia Not Detected (Not Detect); Norovirus GI/GII Not Detected (Not Detect); Plesiomonsa shigelloides Not Detected (Not Detect); Rotavirus A Not Detected (Not Detect); Salmonella Not Detected (Not Detect); Sapovirus Not Detected (Not Detect); Shiga-like toxin-prod E.coli Not Detected (Not Detect); Shigella/Enteroinvasive E.coli Not Detected (Not Detect); Vibrio Not Detected (Not Detect); Vibrio cholerae Not Detected (Not Detect); Yersinia enterocolitica Not Detected (Not Detect)
[2021-05-14 13:16] VITALS: BP 135/78; PULSE 83; RESP 16; O2SAT 96
== END 2021-05-14 13:19 | disposition home or self-care (01) ==
PROVIDERS: Emergency Provider Emergency Medicine; PCP Family Medicine
DX: K52.9 Noninfective gastroenteritis and colitis, unspecified (principal); F17.290 Nicotine dependence, other tobacco product, uncomplicated
CPT/HCPCS: 36415; 76705; 80053; 81003; 81025; 83690; 85025; 87507; 96361; 96374; 96375; 99284; C9113; J1885; J2405

== ENCOUNTER 2021-07-23 06:20 | Emergency (ER) | payer OTHER, MEDICAID, SELFPAY ==
[2021-07-23 06:25] VITALS: BP 135/85; PULSE 92; RESP 18; TEMP 36.3; O2SAT 96; BMI 41.1
--- NOTE | 2021-07-23 07:22 | ED_ITS ---
HPI - Abdominal Pain General Chief Complaint: Abdominal Pain Stated Complaint: pain in abd, n/v Time Seen by Provider: 07/23/21 06:31 Source: patient Mode of arrival: Ambulatory Limitations: no limitations History of Present Illness HPI narrative: The patient presents with epigastric abdominal pain that has been going on for several weeks. Pain radiates to the substernal region. She was seen here about 2 months ago, gallbladder ultrasound showed no evidence of cholelithiasis. She was seen at a walk-in clinic, started on Pepcid since that visit. Pepcid b.i.d. is not making a significant difference. She experiencing epigastric pain, radiating to the substernal region. She has occasional emesis. She de nies hematemesis. She knows she does have anxiety about the situation. She has never undergone endoscopy, prior to going on the Pepcid she has not used acid blocking agents. She has PCOS, frequent right lower quadrant pain. She is currently not . She has no vaginal complaints, no dysuria. She has no back pain. Exacerbation of pelvic pain does not seem to be influencing the upper GI symptoms. She has experienced recent URI symptoms. She currently has no headache, rhinorrhea or sore throat. She currently has no chest pain, cough or dyspnea. She has no chronic cardiopulmonary issues. Her GI symptoms have increased in the last couple days. She has history of migraines, she is not currently experiencing headaches. Related Data Previous Rx's Medication Instructions Recorded sumatriptan succinate 25 mg tablet See Rx Instructions PO .COMPLEX 01/14/21 #10 tab topiramate 50 mg tablet 100 mg PO BID #120 tab 01/14/21 ondansetron 4 mg disintegrating 4 mg PO Q8H PRN #10 tab 05/08/21 tablet metoclopramide HCl 10 mg tablet 10 mg PO Q6H PRN #20 tab 05/14/21 (Reglan) metoclopramide HCl 10 mg tablet 10 mg PO Q8H #90 tab 07/23/21 (Reglan) omeprazole 20 mg capsule,delayed 20 mg PO DAILY #30 cap 07/23/21 release Allergies Allergy/AdvReac Type Severity Reaction Status Date / Time amoxicillin [From Augmentin] Allergy Verified 07/14/21 09:38 clavulanic acid Allergy Verified 07/14/21 09:38 [From Augmentin] Review of Systems Constitutional Constitutional: Reports as per HPI, Denies body ache(s), Denies chills, Denies fatigue, Denies fever(s) and Denies headache(s) Eyes Eyes: Denies change in vision ENT Ears, Nose, Mouth, and Throat: Denies headache(s) and Denies sore throat Cardiovascular Cardiovascular: Denies rapid heart rate, Denies irregular heart rhythm, Denies leg edema and Denies dyspnea Respiratory Respiratory: Denies cough and Denies dyspnea Gastrointestinal Gastrointestinal: Denies change in bowel habits, Denies diarrhea and Denies nausea Genitourinary Genitourinary: Reports as per HPI and Denies dysuria Musculoskeletal Musculoskeletal: Denies back pain Integumentary/Breasts Skin/Breast: Denies rash Neurologic Neurologic: Denies confusion and Denies headache(s) Psychiatric Psychiatric: Denies confusion and Denies depression Endocrine Endocrine: Denies fatigue Hematologic/Lymphatic On Anticoagulants: No Patient History Medical History Depression Fracture Generalized anxiety disorder Hirsutism Migraines Morbid obesity with BMI of 40.0-44.9, adult PCOS (polycystic ovarian syndrome) Surgical History [place] teeth extracted Family History Father Hypertension CVA (cerebral vascular accident) Social History marital status: unmarried,single number of children: 0 lives independently: Yes education level: high school occupational status: unemployed Smoking Status: Current some day smoker alcohol intake: current substance use type: does not use Smoking Status: Current some day smoker tobacco type: vaping alcohol intake frequency: 0-2 drinks per day Substance Use Type: marijuana Exam Initial Vital Signs Initial Vital Signs: Vital Signs Temperature 97.3 F L 07/23/21 06:25 Pulse Rate 92 H 07/23/21 06:25 Respiratory Rate 18 07/23/21 06:25 Blood Pressure 135/85 07/23/21 06:25 Pulse Oximetry 96 07/23/21 06:25 Const General: cooperative, healthy appearing, comfortable and anxious HENDE Head: normocephalic and atraumatic Throat: posterior oropharynx normal Eyes Conjunctivae: conjunctivae normal Sclera: sclerae normal Pupils: PERRL EOM: EOM intact bilaterally Neck Neck: full ROM and No lymphadenopathy Chest Chest: normal inspection of the chest Resp Effort & Inspection: normal respiratory effort Auscultation: clear to auscultation bilaterally Cardio Rate: regular rate Rhythm: regular rhythm Heart Sounds: S1 normal, S2 normal, no click, no murmurs and no rubs GI Inspection: obesity Palpation: soft, No mass and tender (Mild epigastric discomfort with palpation.) Auscultation: normal bowel sounds Back/Spine/Pelvis Back: normal to inspection and No CVA tenderness Skin General: no rashes or lesions noted Neuro General: patient alert, patient awake and patient oriented x3 Extrem General: normal to inspection, full ROM, no pedal edema and no calf tenderness Psych Appearance: grossly normal Mental Status: mental status grossly normal Speech and Movement: speech and movement normal Course Course Course Narrative: She has subtle elevation to her LFTs, ultrasound as previously indicated fatty liver. Labs are otherwise intact. She is not . She has received IV Protonix as well as IV Reglan with relief. She is prescribed omeprazole and Reglan. She has follow-up planned with her PCM, I suggest a discuss possible endoscopy. Orders Ordered: ED Orders 07/23/21 06:40 Respiratory Panel (Film Array) Stat 07/23/21 07:50 Complete Blood Count AUTO DIFF Stat Comprehensive Metabolic Panel Stat Lipase Stat Sodium Chloride (Normal Saline 0.9%) 1,000 mls @ 150 mls/hr IV CONT FUNMI Last Admin: 07/23/21 07:45 Dose: 150 mls/hr Documented by: FERNANDO Discontinued Medications Metoclopramide HCl (Metoclopramide 10 Mg/2 Ml Inj) 10 mg IV NOW ONE Stop: 07/23/21 07:37 Last Admin: 07/23/21 07:45 Dose: 10 mg Documented by: FERNANDO Pantoprazole Sodium (Pantoprazole 40 Mg Vial) 40 mg IV NOW ONE Stop: 07/23/21 07:37 Last Admin: 07/23/21 07:53 Dose: 40 mg Documented by: FERNANDO Vital Signs Vital signs: Vital Signs - 8 hr 07/23/21 06:25 Temperature 97.3 F L Pulse Rate 92 H Respiratory Rate 18 Blood Pressure 135/85 Pulse Oximetry 96 MDM - Abdominal Pain Lab Data Result diagrams: 07/23/21 07:50 07/23/21 07:50 Labs: Lab Results 07/23/21 07/23/21 Range/Units 07:50 07:50 WBC 6.6 (4.5-11.0) X10^3/uL RBC 5.65 H (4.0-5.2) X10^6/uL Hgb 14.1 (12.0-16.0) g/dL Hct 42.8 (36-46) % MCV 75.9 L (80-100) fL MCH 24.9 L (26-34) PG MCHC 32.8 (30-36) % RDW 15.5 H (11.6-14.8) % Plt Count 284 (150-400) X10^3/uL Neut % (Auto) 65.4 (50-75) % Lymph % (Auto) 26.0 (25-40) % [place] % (Auto) 6.1 (3-14) % Eos % (Auto) 1.6 L (2-4) % Baso % (Auto) 0.9 (0-2) % Neut # (Auto) 4300 (4855-8853) /uL Lymph # (Auto) 1700 (7142-0197) /uL [place] # (Auto) 400 (0-900) /uL Eos # (Auto) 100 (0-450) /uL Baso # (Auto) 100 (0-100) /uL Sodium 140 (137-145) mmol/L Potassium 4.2 (3.4-5.1) mmol/L Chloride 105 (98-107) mmol/L Carbon Dioxide 25 (22-32) mmol/L BUN 8 (7-17) mg/dL Creatinine 0.60 (0.52-1.04) mg/dL Estimated GFR > 60 (>60) mL/min BUN/Creatinine Ratio 13.3 (6-22) Glucose 107 H (70-100) mg/dL Calcium 8.9 (8.4-10.2) mg/dL Total Bilirubin 0.3 (0.2-1.3) mg/dL AST 60 H (14-36) IU/L ALT 82 H (<35) IU/L Alkaline Phosphatase 70 (38-126) U/L Total Protein 7.9 (6.3-8.2) g/dL Albumin 4.4 (3.5-5.0) g/dL Globulin 3.5 (1.7-4.1) g/dL Albumin/Globulin Ratio 1.3 (1.0-2.8) Lipase 58 (23-300) U/L Point of care testing: Point of Care Testing Test Results Negative Urine Dip Bedside Urine Glucose Negative Bedside Urine Bilirubin - Negative Bedside Urine Ketone - Negative Urine Specific [place] 1.025 Bedside Urine Occult Blood - Negative Bedside Urine pH 6.0 Bedside Urine Protein - Negative Bedside Urine Urobilinogen - Negative Bedside Urine Nitrite - Negative Bedside Urine Leukocytes - Negative Esterase Discharge Plan Departure Patient Disposition: Home Clinical Impression: Abdominal pain, epigastric Instructions: DI for Gastroesophageal Reflux Disease (GERD) Activity Restrictions/Additional Instructions: Your symptoms may represent acid reflux or a hiatal hernia. Omeprazole 20 mg daily. Reglan 10 mg every 8 hours as needed. Small diet only. I would recommend no late evening meals. Be sure you are drinking plenty of water. Follow-up with your primary care doctor, I would suggest a conversation about possible endoscopy if symptoms persist. Prescriptions: New metoclopramide HCl [Reglan] 10 mg tablet 10 mg PO Q8H Qty: 90 0RF omeprazole 20 mg capsule,delayed release(DR/EC) 20 mg PO DAILY Qty: 30 0RF No Action topiramate 50 mg tablet 100 mg PO BID Qty: 120 2RF sumatriptan succinate 25 mg tablet See Rx Instructions PO .COMPLEX Qty: 10 3RF Rx Instructions: take 1 tab at onset of headache; if no relief may repeat 1 tab after at least 2 hrs; max = 4 tabs/24 hr PO ondansetron 4 mg tablet,disintegrating 4 mg PO Q8H PRN (Reason: nausea and vomiting) Qty: 10 0RF metoclopramide HCl [Reglan] 10 mg tablet 10 mg PO Q6H PRN (Reason: nausea and vomiting) Qty: 20 0RF Referrals: Ciara Lopes DO [Primary Care Provider] - Stand Alone Forms: Work Release Note
[2021-07-23] MEDS: SODIUM CHLORIDE 0.9% 1,000 ML 150 ML IV (07:45)
[2021-07-23] MEDS: METOCLOPRAMIDE 10 MG/2 ML INJ IV (07:45)
[2021-07-23] MEDS: PANTOPRAZOLE 40 MG VIAL IV (07:53)
[2021-07-23 08:00] LABS: Add Manual Diff / Slide Review NO; Basophils Absolute Auto 100 /uL (0-100); Basophils Percent Auto 0.9 % (0-2); Eosinophils Absolute Auto 100 /uL (0-450); Eosinophils Percent Auto 1.6 % (2-4); Hematocrit 42.8 % (36-46); Hemoglobin 14.1 g/dL (12.0-16.0); Lymphocytes Absolute Auto 1700 /uL (1100-4500); Mean Corpuscular HGB Conc 32.8 % (30-36); Mean Corpuscular Hemoglobin 24.9 PG (26-34); Mean Corpuscular Volume 75.9 fL (80-100); Monocytes Absolute Auto 400 /uL (0-900); Monocytes Percent Auto 6.1 % (3-14); Neutrophils Absolute Auto 4300 /uL (1500-7000); Neutrophils Percent Auto 65.4 % (50-75); Platelet Count 284 X10^3/uL (150-400); Red Blood Cell Count 5.65 X10^6/uL (4.0-5.2); Red Cell Distribution Width 15.5 % (11.6-14.8); White Blood Cell Count 6.6 X10^3/uL (4.5-11.0)
[2021-07-23 08:10] LABS: Alanine Aminotransferase 82 IU/L (<35); Albumin 4.4 g/dL (3.5-5.0); Albumin Globulin Ratio 1.3 (1.0-2.8); Alkaline Phosphatase 70 U/L (38-126); Aspartate Aminotransferase 60 IU/L (14-36); BUN Creatinine Ratio 13.3 (6-22); Bilirubin Total 0.3 mg/dL (0.2-1.3); Blood Urea Nitrogen 8 mg/dL (7-17); Calcium 8.9 mg/dL (8.4-10.2); Carbon Dioxide 25 mmol/L (22-32); Chloride 105 mmol/L (98-107); Estimated Glomerular Filt Rate > 60 mL/min (>60); Globulin 3.5 g/dL (1.7-4.1); Glucose 107 mg/dL (70-100); HEMOLYSIS 22 (0-50); Lipase 58 U/L (23-300); Potassium 4.2 mmol/L (3.4-5.1); Sodium 140 mmol/L (137-145); Total Protein 7.9 g/dL (6.3-8.2)
[2021-07-23 09:40] VITALS: BP 131/72; PULSE 80; RESP 16; O2SAT 97
[2021-07-23 09:58] LABS: Adenovirus Not Detected (Not Detect); B. parapertussis Not Detected (Not Detecte); Bordetella pertussis Not Detected (Not Detecte); Chlamydophila pneumoniae Not Detected (Not Detect); Coronavirus 229E Not Detected (Not Detect); Coronavirus HKU1 Not Detected (Not Detect); Coronavirus NL 63 Not Detected (Not Detect); Coronavirus OC43 Not Detected (Not Detect); Human Metapneumovirus Not Detected (Not Detect); Human Rhinovirus/Enterovirus Not Detected (Not Detect); Influenza A Not Detected (Not Detect); Influenza B Not Detected (Not Detect); Mycoplasma pneumoniae Not Detected (Not Detect); Parainfluenza Virus 1 Not Detected (Not Detect); Parainfluenza Virus 2 Not Detected (Not Detect); Parainfluenza Virus 3 Not Detected (Not Detect); Parainfluenza Virus 4 Not Detected (Not Detect); Respiratory Syncytial Virus Not Detected (Not Detect); SARS- CoV-2 Not Detected (Not Detecte)
== END 2021-07-23 09:41 | disposition home or self-care (01) ==
PROVIDERS: Emergency Medicine; Emergency Provider Emergency Medicine; PCP Family Medicine
DX: R10.13 Epigastric pain (principal)
CPT/HCPCS: 36415; 80053; 81003; 81025; 83690; 85025; 87633; 96374; 96375; 99284; C9113; J2765

== ENCOUNTER → 2021-09-19 10:00 | Outpatient (CLI) | payer OTHER, MEDICAID, SELFPAY ==
[2021-09-19 11:15] LABS: Add Manual Diff / Slide Review NO; Basophils Absolute Auto 0 /uL (0-100); Basophils Percent Auto 0.4 % (0-2); Eosinophils Absolute Auto 100 /uL (0-450); Eosinophils Percent Auto 1.2 % (2-4); Hematocrit 41.9 % (36-46); Hemoglobin 13.5 g/dL (12.0-16.0); Lymphocytes Absolute Auto 2000 /uL (1100-4500); Lymphocytes Percent Auto 25.9 % (25-40); Mean Corpuscular HGB Conc 32.3 % (30-36); Mean Corpuscular Hemoglobin 24.7 PG (26-34); Mean Corpuscular Volume 76.4 fL (80-100); Monocytes Absolute Auto 400 /uL (0-900); Monocytes Percent Auto 5.5 % (3-14); Neutrophils Absolute Auto 5200 /uL (1500-7000); Platelet Count 271 X10^3/uL (150-400); Red Blood Cell Count 5.48 X10^6/uL (4.0-5.2); Red Cell Distribution Width 16.4 % (11.6-14.8); White Blood Cell Count 7.7 X10^3/uL (4.5-11.0)
[2021-09-19 11:47] LABS: Alanine Aminotransferase 83 IU/L (<35); Albumin 4.4 g/dL (3.5-5.0); Albumin Globulin Ratio 1.5 (1.0-2.8); Alkaline Phosphatase 80 U/L (38-126); Aspartate Aminotransferase 49 IU/L (14-36); BUN Creatinine Ratio 11.8 (6-22); Bilirubin Total 0.2 mg/dL (0.2-1.3); Blood Urea Nitrogen 8 mg/dL (7-17); Calcium 9.1 mg/dL (8.4-10.2); Carbon Dioxide 25 mmol/L (22-32); Chloride 105 mmol/L (98-107); Cholesterol 186 mg/dL (140-199); Estimated Glomerular Filt Rate > 60 mL/min (>60); Globulin 2.9 g/dL (1.7-4.1); Glucose 101 mg/dL (70-100); HDL Cholesterol 38 mg/dL (40-60); HEMOLYSIS < 15 (0-50); LDL Cholesterol Calculated 124 mg/dL (<100); Potassium 4.2 mmol/L (3.4-5.1); Sodium 140 mmol/L (137-145); Total Protein 7.3 g/dL (6.3-8.2); Triglycerides 122 mg/dL (35-150)
[2021-09-19 12:24] LABS: TSH w/ Reflex to FT4 1.67 uIU/mL (0.47-4.68)
== END ==
PROVIDERS: PCP Family Medicine; Referring Provider Family Medicine; Visit Provider Family Medicine
DX: R11.2 Nausea with vomiting, unspecified (principal); R19.7 Diarrhea, unspecified; R10.84 Generalized abdominal pain; E28.2 Polycystic ovarian syndrome; E66.01 Morbid (severe) obesity due to excess calories; Z68.41 Body mass index [BMI] 40.0-44.9, adult
CPT/HCPCS: 36415; 80053; 80061; 84443; 85025

== ENCOUNTER 2022-04-23 12:22 | Emergency (ER) | payer OTHER, MEDICAID, SELFPAY ==
[2022-04-23 12:28] VITALS: BP 144/76; PULSE 78; RESP 15; TEMP 36.3; O2SAT 100; BMI 38.6
--- NOTE | 2022-04-23 12:30 | DI.RAD.S_ITS ---
PROCEDURE: XR KNEE LT 3V INDICATIONS: left knee pain TECHNIQUE: 3 views of the knee were acquired. COMPARISON: [facility], , XR KNEE LT 3V, 01/13/2018, 19:18. FINDINGS: Bones: Again noted is a left femoral intramedullary chuy with no evidence of hardware failure or loosening. No fractures or dislocations. No suspicious bony lesions. Soft tissues: Small joint effusion. No suspicious soft tissue calcifications. IMPRESSION: No evidence acute bony abnormality of the left knee. If clinical suspicion and/or symptoms persist, further assessment with repeat plain films, or advanced imaging (e.g., CT, MRI, or bone scan) may be helpful for further assessment. Dictated by: Javier Minor M.D. on 04/23/2022 at 12:53 Approved by: Javier Minor M.D. on 04/23/2022 at 12:53
[2022-04-23] MEDS: KETOROLAC 30 MG/ML VIAL IM (13:12)
--- NOTE | 2022-04-23 13:24 | ED_ITS ---
HPI - Extremity Injury (Lower) <Vicki Cast, [facility] - Last Filed: 04/23/22 13:43> General Chief Complaint: Extremity Injury, Lower Stated Complaint: Left knee pain Time Seen by Provider: 04/23/22 12:56 Source: patient Mode of arrival: Ambulatory History of Present Illness HPI Narrative: This is a 26 year female presents after she hurt her knee 6 days ago. She states that she has history of previous right femur fracture with a chuy in place and 6 days ago she was sitting in a cross-legged position when she went to stand up she fell pain and pulling at the proximal right knee /distal quadriceps. She endorses swelling of her left knee joint, denies any open wound, states that it feels unstable, complains of pain with bearing weight but primarily on the lateral aspect. She denies weakness, sensation changes, any mobility deficit. She denies history of meniscus injury or knee injury, states that her femur fracture was mid shaft, spiral and oblique without knee injury. She was at walk-in care to arrival and states that she was waiting to hear about her x-ray report and she was not given information about her knee injury related to her question so she came to the emergency department for further evaluation. She has not had pain medication prior to arrival. States that she was supposed to work today but called in sick due to the pain. Related Data Previous Rx's Medication Instructions Recorded sumatriptan succinate 25 mg tablet See Rx Instructions PO .COMPLEX 01/14/21 #10 tabs ondansetron 4 mg disintegrating 4 mg PO Q8H PRN nausea and 05/08/21 tablet vomiting #10 tabs metformin 500 mg tablet 500 mg PO DAILY #90 tabs 09/19/21 diclofenac sodium 1 % topical gel 2 g topical QID PRN pain #100 grams 04/23/22 hydrocodone 5 mg-acetaminophen 325 1 tab PO BID PRN pain #10 tabs 04/23/22 mg tablet ketorolac 10 mg tablet 10 mg PO TID PRN pain 5 days #20 04/23/22 tabs methocarbamol 500 mg tablet 500 mg PO TID PRN muscle strain 04/23/22 #20 tabs Allergies Allergy/AdvReac Type Severity Reaction Status Date / Time amoxicillin [From Augmentin] Allergy Verified 04/23/22 12:28 clavulanic acid Allergy Verified 04/23/22 12:28 [From Augmentin] Review of Systems <JORGE Padilla - Last Filed: 04/23/22 13:43> Review of Systems ROS Unobtainable: All systems reviewed & are unremarkable except as noted in HPI and below Patient History <JORGE Padilla - Last Filed: 04/23/22 13:43> Medical History Depression Fracture Generalized anxiety disorder Hirsutism HPV in female Migraines Morbid obesity with BMI of 40.0-44.9, adult PCOS (polycystic ovarian syndrome) Surgical History [place] teeth extracted Family History Father Hypertension CVA (cerebral vascular accident) Social History marital status: unmarried,single number of children: 0 lives independently: Yes education level: high school occupational status: unemployed Smoking Status: Current some day smoker alcohol intake: current substance use type: does not use Smoking Status: Current some day smoker tobacco type: vaping alcohol intake frequency: holidays/special occasions only Substance Use Type: marijuana Exam <JORGE Padilla - Last Filed: 04/23/22 13:43> Narrative Exam Narrative: Reviewed vitals signs and nursing notes. General: cooperative, comfortable, in no acute distress, well groomed HEENT: symmetrical facial expressions, moist mucous membranes MSK: moves all extremities, neurovascularly intact, no weakness, normal tone knee flexion and extension fully intact without deficit, tenderness of the distal quadriceps on the lateral aspect and proximal LCL, mildly increased laxity with varus testing, no laxity with valgus or with Rick's. Mild tenderness over patellar tendon, mildly palpable suprapatellar edema. No open wound, no ecchymosis, tenderness over proximal LCL, no tenderness over MCL,, PT and DP pulses to the left foot are palpable Skin: brisk capillary refill, without pallor or erythema Neuro: normal speech and cognition, A&O x3, ambulatory, clear speech Psych: mental status is grossly normal, congruent mood, normal affect, pleasant and cooperative Initial Vital Signs Initial Vital Signs: Vital Signs Temperature 97.3 F L 04/23/22 12:28 Pulse Rate 78 04/23/22 12:28 Respiratory Rate 15 04/23/22 12:28 Blood Pressure 144/76 H 04/23/22 12:28 Pulse Oximetry 100 04/23/22 12:28 Oxygen Delivery Method 04/23/22 12:28 <Artemio Jason DO - Last Filed: 04/25/22 18:15> Initial Vital Signs Initial Vital Signs: Vital Signs Temperature 97.3 F L 04/23/22 12:28 Pulse Rate 78 04/23/22 12:28 Respiratory Rate 15 04/23/22 12:28 Blood Pressure 144/76 H 04/23/22 12:28 Pulse Oximetry 100 04/23/22 12:28 Oxygen Delivery Method 04/23/22 12:28 Procedures <JORGE Padilla - Last Filed: 04/23/22 13:43> Orthopedic Splinting/Casting Injury #1: Side: left Lower Extremity Injury Location: knee Lower Extremity Immobilizer: knee immobilizer Other Orthopedic Equipment: other (Recommended using a cane as needed) Post splinting neuro exam: intact Post splinting vascular exam: intact Course <JORGE Padilla - Last Filed: 04/23/22 13:43> Orders Ordered: Discontinued Medications Ketorolac Tromethamine (Ketorolac 30 Mg/Ml Vial) 30 mg IM NOW ONE Stop: 04/23/22 12:58 Last Admin: 04/23/22 13:12 Dose: 30 mg Documented By: AMU Vital Signs Vital signs: Vital Signs - 8 hr 04/23/22 12:28 Temperature 97.3 F L Pulse Rate 78 Respiratory Rate 15 Blood Pressure 144/76 H Pulse Oximetry 100 Oxygen Delivery Method Room Air <Artemio Jason DO - Last Filed: 04/25/22 18:15> Orders Ordered: Discontinued Medications Ketorolac Tromethamine (Ketorolac 30 Mg/Ml Vial) 30 mg IM NOW ONE Stop: 04/23/22 12:58 Last Admin: 04/23/22 13:12 Dose: 30 mg Documented By: AMU Vital Signs Vital signs: Vital Signs - 8 hr 04/23/22 12:28 Temperature 97.3 F L Pulse Rate 78 Respiratory Rate 15 Blood Pressure 144/76 H Pulse Oximetry 100 Oxygen Delivery Method Room Air MDM - Extremity Injury (Lower) <JORGE Padilla - Last Filed: 04/23/22 13:43> Imaging Data Extremity x-ray #1: Radiologist's Impression: PROCEDURE:? XR KNEE LT 3V ? INDICATIONS:? left knee pain ? TECHNIQUE:? 3 views of the knee were acquired.? ? COMPARISON:? [facility], , XR KNEE LT 3V, 01/13/2018, 19:18. ? FINDINGS:? ? Bones:? Again noted is a left femoral intramedullary chuy with no evidence of hardware failure or loosening.? No fractures or dislocations.? No suspicious bony lesions.? ? Soft tissues:? Small joint effusion.? No suspicious soft tissue calcifications.? ? ? IMPRESSION:? No evidence acute bony abnormality of the left knee. ? If clinical suspicion and/or symptoms persist, further assessment with repeat plain films, or advanced imaging (e.g., CT, MRI, or bone scan) may be helpful for further assessment. ? ? ? Dictated by: Javier Minor M.D. on 04/23/2022 at 12:53 ? ? Approved by: Javier Minor M.D. on 04/23/2022 at 12:53 ? [facility] Narrative Medical decision making narrative: Chief Complaint: Worsening knee pain for 6 days Independent historian: Patient Differential diagnoses include but are not limited to: Ligamental injury, acute fracture, avulsion fracture, effusion, tibial plateau fracture, quadriceps injury, patellar injury, proximal fibular injury, infectious arthritis, tendon, meniscal injury, vascular injury I have independently reviewed the patient's vital signs and nursing notes as w ell as prior records if available. Pertinent Imaging reviewed: Left knee x-ray shows a mild joint effusion without evidence of hardware failure or acute fracture or other injury No e/o compartment syndrome, septic arthritis, other acute fracture. Range of motion is intact. Patient without tenderness over their MCL, patellar tendon, Rick's negative, Rena's negative, no significant laxity with valgus testing but has mild suprapatellar edema, mildly increased laxity with varus testing and tenderness over the proximal LCL.. The patient does not report any instability and can bear weight. There is no weakness, flexion-extension range of motion is full. There is no suprapatellar effusion by palpation, no surrounding erythema, no sensation changes distally. Other diagnoses considered include patellofemoral syndrome, patellar tendinitis, meniscal injury, ligamental injury, prepatellar bursitis, arthritis, referred pain, IT band, muscle strain, knee effusion, hemarthrosis and gout. Recommend that patient follow-up at [facility], she was given a work note for the next 3 days, pain medication, encouraged her to ice, rest, use the knee immobilizer while she upright and follow-up with her PCP for a referral to physical therapy after she improves from this injury. She was fitted in a knee immobilizer and given 2 [place] bandages to use for compression as needed as she improves. Social considerations that may affect disposition: none Questions are addressed and there is agreement with the plan and for follow-up. Patient is appropriate for outpatient management. MIPS: This encounter doesn't have any diagnosis' associated with MIPS criteria. Discharge Plan Departure Patient Disposition: Home Clinical Impression: Knee sprain, Effusion of knee Instructions: DI for Knee Sprain, DI for Knee Effusion Activity Restrictions/Additional Instructions: *You have been diagnosed with a left knee sprain, likely of the LCL, could be of attachment near the distal quadriceps. Please use ice for 20 minutes at a time and try to avoid being up on your knee with extra activity for the next few days. Take ibuprofen 800 mg with food and water every 8 hours, okay to take a pain pill in addition to this as needed, can take a muscle relaxer at nighttime. You something topical like lidocaine patches or diclofenac gel. Please schedule follow-up with [facility] about this. If this improves, please see your primary care provider for referral to physical therapy as they can help you heal without further injury. I hope you feel better soon. Thank you for trusting me to tell me what happened. I am sorry for your experience at the walk-in clinic today. I am giving you the phone number for the quality director at the hospital [phone]. And the next number is the assistant in nursing of the walk-in Clinic whom I think this would be most helpful to share this with her name is Daphne Higgins at [phone]. The next chain of command is the director of the walk-in clinic Marcela Stovall at [phone]. Please sharing your feelings with how you were treated today. Thank you for your patients and coming over to the emergency department and giving us another chance. *What to do: *Please continue to take your regular medications as directed. [x ] New medication prescriptions sent to your pharmacy: [[facility]] [ ] New medication written as a paper prescription [ ] No new medications given *Please follow up with your primary care provider in 2-3 days, call for an appointment. Let them know you were seen in the Emergency Department and that we asked that you be seen for follow-up. We will electronically transmit a record of today's note if your PCP is in our system *If you do not have a primary care provider please contact [phone] to establish care with one of the [facility] primary care providers. *Return to Emergency Department if you should have any new, worsening, or concerning symptoms, such as [fever greater than 101F, chills, worsening pain, persistent vomiting or other bothersome symptoms]. Prescriptions: New methocarbamol 500 mg tablet 500 mg PO TID PRN (Reason: muscle strain) Qty: 20 0RF diclofenac sodium 1 % gel 2 g topical QID PRN (Reason: pain) Qty: 100 0RF Rx Instructions: apply to area of pain 4 times daily as needed hydrocodone-acetaminophen 5-325 mg tablet 1 tab PO BID PRN (Reason: pain) Qty: 10 0RF No Action ketorolac 10 mg tablet 10 mg PO TID PRN (Reason: pain) 5 Days Qty: 20 0RF sumatriptan succinate 25 mg tablet See Rx Instructions PO .COMPLEX Qty: 10 3RF Rx Instructions: take 1 tab at onset of headache; if no relief may repeat 1 tab after at least 2 hrs; max = 4 tabs/24 hr PO metformin 500 mg tablet 500 mg PO DAILY Qty: 90 1RF ondansetron 4 mg tablet,disintegrating 4 mg PO Q8H PRN (Reason: nausea and vomiting) Qty: 10 0RF Referrals: [facility] [Provider Group] Ciara Lopes DO [Primary Care Provider] - Stand Alone Forms: Patient Portal/API, Work Release Note <Artemio Jason DO - Last Filed: 02/25/23 18:15> Cosign ED Attending Cosignature Attestation: I was immediately available in the department for consultation. This documentati on has been reviewed and I agree with assessment and plan. Supervised by Artemio Jason DO
== END 2022-04-23 13:22 | disposition home or self-care (01) ==
PROVIDERS: Emergency Provider Nurse Practitioner Critical Care Medicine; PCP Family Medicine
DX: S83.92XA Sprain of unspecified site of left knee, initial encounter (principal)
CPT/HCPCS: 73562; 96372; 99283; J1885

== ENCOUNTER → 2022-09-17 07:50 | Outpatient (CLI) | payer OTHER, MEDICAID, SELFPAY ==
[2022-09-17 09:49] LABS: Alanine Aminotransferase 28 IU/L (<35); Albumin 4.4 g/dL (3.5-5.0); Albumin Globulin Ratio 1.5 (1.0-2.8); Alkaline Phosphatase 71 U/L (38-126); Aspartate Aminotransferase 21 IU/L (14-36); BUN Creatinine Ratio 14.3 (6-22); Bilirubin Total 0.3 mg/dL (0.2-1.3); Blood Urea Nitrogen 9 mg/dL (7-17); Calcium 9.5 mg/dL (8.4-10.2); Carbon Dioxide 25 mmol/L (22-32); Chloride 105 mmol/L (98-107); Estimated Glomerular Filt Rate > 60 mL/min (>60); Globulin 2.9 g/dL (1.7-4.1); Glucose 98 mg/dL (70-100); HEMOLYSIS < 15 (0-50); Sodium 141 mmol/L (137-145); Total Protein 7.3 g/dL (6.3-8.2)
[2022-09-17 10:34] LABS: Vitamin B12 993 pg/mL (239-931)
[2022-09-17 15:28] LABS: HEMOLYSIS < 15 (0-50); Iron 48 ug/dL (37-170)
[2022-09-17 15:41] LABS: Percent Iron Saturation 12 % (15-50); Total Iron Binding Capacity 392 ug/dL (265-497); Transferrin 287 mg/dL (206-381)
[2022-09-18 17:05] LABS: Vitamin D 25 Hydroxy (D3) 28.8 ng/mL (30.0-100.0)
== END ==
PROVIDERS: Referring Provider Physician Assistant; Visit Provider Physician Assistant
DX: E28.2 Polycystic ovarian syndrome (principal); Z98.84 Bariatric surgery status
CPT/HCPCS: 36415; 80053; 82306; 82607; 83540; 83550; 83735

== ENCOUNTER 2022-10-15 06:35 | Emergency (ER) | payer OTHER, MEDICAID, SELFPAY ==
[2022-10-15 06:52] VITALS: BP 134/79; PULSE 79; RESP 16; TEMP 36.6; O2SAT 100; BMI 28.3
[2022-10-15 07:23] VITALS: BP 121/67; PULSE 78; O2SAT 99
[2022-10-15 07:30] VITALS: BP 125/80; PULSE 80; O2SAT 98
[2022-10-15 07:30] LABS: Bacteria Urine None Seen; Mucus Urine 1+ (Negative); RBC Urine 0-1/HPF (0-5/HPF); Squamous Epithelial Cell Urine 0-1 /HPF (0-5/HPF); WBC Urine 0-1/HPF (0-5/HPF)
[2022-10-15 07:39] LABS: Add Manual Diff / Slide Review NO; Basophils Absolute Auto 0 /uL (0-100); Basophils Percent Auto 0.6 % (0-2); Eosinophils Absolute Auto 0 /uL (0-450); Eosinophils Percent Auto 0.8 % (2-4); Hemoglobin 13.3 g/dL (12.0-16.0); Lymphocytes Absolute Auto 1300 /uL (1100-4500); Lymphocytes Percent Auto 24.3 % (25-40); Mean Corpuscular HGB Conc 33.3 % (30-36); Mean Corpuscular Hemoglobin 27.8 PG (26-34); Mean Corpuscular Volume 83.6 fL (80-100); Monocytes Absolute Auto 300 /uL (0-900); Monocytes Percent Auto 5.7 % (3-14); Neutrophils Absolute Auto 3800 /uL (1500-7000); Neutrophils Percent Auto 68.6 % (50-75); Platelet Count 258 X10^3/uL (150-400); Red Blood Cell Count 4.79 X10^6/uL (4.0-5.2); Red Cell Distribution Width 15.2 % (11.6-14.8); White Blood Cell Count 5.5 X10^3/uL (4.5-11.0)
[2022-10-15 07:48] LABS: Alanine Aminotransferase 21 IU/L (<35); Albumin 4.3 g/dL (3.5-5.0); Albumin Globulin Ratio 1.4 (1.0-2.8); Alkaline Phosphatase 56 U/L (38-126); Aspartate Aminotransferase 23 IU/L (14-36); BUN Creatinine Ratio 20.7 (6-22); Bilirubin Total 0.4 mg/dL (0.2-1.3); Blood Urea Nitrogen 12 mg/dL (7-17); Carbon Dioxide 25 mmol/L (22-32); Chloride 106 mmol/L (98-107); Estimated Glomerular Filt Rate > 60 mL/min (>60); Glucose 93 mg/dL (70-100); HEMOLYSIS 17 (0-50); Lipase 69 U/L (23-300); Potassium 3.5 mmol/L (3.4-5.1); Sodium 138 mmol/L (137-145); Total Protein 7.3 g/dL (6.3-8.2)
--- NOTE | 2022-10-15 07:55 | ED.ABDPAIN ---
HPI - Abdominal Pain General Chief Complaint: Abdominal Pain Stated Complaint: abd pain, black stool Time Seen by Provider: 10/15/22 06:50 Source: patient Mode of arrival: Ambulatory Limitations: no limitations History of Present Illness HPI narrative: This is a 19-year-old female with history of migraines and gastric sleeve placed in May in [place]. Patient states she is noted some dark stools sometimes blackish in the last several days. She does note she started iron about a week to week and a half ago because her iron levels were low. Patient states she is had some epigastric discomfort intermittently but had an increase today. She denies fevers or chills. She sometimes gets nauseated. No vomiting. She notes there are certain foods she can not eat because they are very upsetting her stomach or just make her throw. She states certain foods or just to heavy or do not sit well but she is been able to figure this out pretty well. She states stools have been intermittently formed and softer they were very black a couple days ago they are dark today. Patient denies any dysuria, urgency or frequency. States she recently stopped her menses. No vaginal discharge. Patient states she occasionally has epigastric discomfort but not frequently. Patient states only other surgery was femur fracture repair. She has a prescription for migraines that she takes as needed. She is on vitamins and then notes that she started iron in the last week and a half. Patient states she does her follow up through primary care, they had recommended the iron because her levels were low. Rare tobacco vaping, rare alcohol, no illicit other than occasional THC. Patient's primary care was Dr. Lopes she follows with her partners currently. Related Data Home Medications Medication Instructions Recorded Confirmed Vitamin B12 10,000 mcg SUBCUT .WEEKLY 07/09/22 Previous Rx's Medication Instructions Recorded sumatriptan succinate 25 mg tablet See Rx Instructions PO .COMPLEX 01/14/21 #10 tabs Allergies Allergy/AdvReac Type Severity Reaction Status Date / Time amoxicillin [From Augmentin] Allergy Verified 07/07/22 13:53 clavulanic acid Allergy Verified 07/07/22 13:53 [From Augmentin] Review of Systems Review of Systems ROS Unobtainable: All systems reviewed & are unremarkable except as noted in HPI and below Patient History Medical History Depression Fracture Generalized anxiety disorder Hirsutism HPV in female Migraines Morbid obesity with BMI of 40.0-44.9, adult PCOS (polycystic ovarian syndrome) Surgical History [place] teeth extracted Family History Father Hypertension CVA (cerebral vascular accident) Social History marital status: unmarried,single number of children: 0 lives independently: Yes education level: high school occupational status: unemployed Smoking Status: Current some day smoker alcohol intake: current substance use type: does not use Smoking Status: Current some day smoker tobacco type: vaping alcohol intake frequency: holidays/special occasions only Substance Use Type: marijuana Exam Narrative Exam Narrative: GENERAL: Alert and oriented x three, female in distress. HEENT: Head normocephalic, atraumatic, EOMI, pupils reactive, face symmetric, moist mucous membranes NECK: Supple, full range of motion CARDIOVASCULAR: Regular rate and rhythm without murmurs, rubs or gallops. RESPIRATORY: Breath sounds equal bilaterally, no wheezes rales or rhonchi. ABDOMEN: Soft, very mild tenderness, normoactive bowel sounds all 4 quadrants. No guarding or rebound, rigidity, no mass : No CVA tenderness EXTREMITIES: Normal range of motion, no clubbing or edema. Neurovascularly intact NEUROLOGICAL: Cranial nerves II through XII grossly intact. Moving all extremities SKIN: Warm, dry, no petechiae, no rashes or lesions. Initial Vital Signs Initial Vital Signs: Vital Signs Temperature 98 F 10/15/22 06:52 Pulse Rate 79 10/15/22 06:52 Respiratory Rate 16 10/15/22 06:52 Blood Pressure 134/79 10/15/22 06:52 Pulse Oximetry 100 10/15/22 06:52 Oxygen Delivery Method Room Air 10/15/22 06:52 Course Orders Ordered: ED Orders 10/15/22 07:20 Urine Microscopic Stat 10/15/22 07:30 Complete Blood Count AUTO DIFF Stat Comprehensive Metabolic Panel Stat Lipase Stat Vital Signs Vital signs: Vital Signs - 8 hr 10/15/22 06:52 10/15/22 07:23 10/15/22 07:23 Temperature 98 F Pulse Rate 79 78 Respiratory Rate 16 Blood Pressure 134/79 121/67 Pulse Oximetry 100 99 Oxygen Delivery Method Room Air Room Air 10/15/22 07:30 10/15/22 07:30 Temperature Pulse Rate 80 Respiratory Rate Blood Pressure 125/80 Pulse Oximetry 98 Oxygen Delivery Method MDM - Abdominal Pain Lab Data 10/15/22 07:30 10/15/22 07:30 Labs: Lab Results 10/15/22 10/15/22 10/15/22 Range/Units 07:20 07:30 07:30 WBC 5.5 (4.5-11.0) X10^3/uL RBC 4.79 (4.0-5.2) X10^6/uL Hgb 13.3 (12.0-16.0) g/dL Hct 40.0 (36-46) % MCV 83.6 (80-100) fL MCH 27.8 (26-34) PG MCHC 33.3 (30-36) % RDW 15.2 H (11.6-14.8) % Plt Count 258 (150-400) X10^3/uL Neut % (Auto) 68.6 (50-75) % Lymph % (Auto) 24.3 L (25-40) % Pettis % (Auto) 5.7 (3-14) % Eos % (Auto) 0.8 L (2-4) % Baso % (Auto) 0.6 (0-2) % Neut # (Auto) 3800 (6133-2102) /uL Lymph # (Auto) 1300 (6424-3975) /uL Pettis # (Auto) 300 (0-900) /uL Eos # (Auto) 0 (0-450) /uL Baso # (Auto) 0 (0-100) /uL Sodium 138 (137-145) mmol/L Potassium 3.5 (3.4-5.1) mmol/L Chloride 106 (98-107) mmol/L Carbon Dioxide 25 (22-32) mmol/L BUN 12 (7-17) mg/dL Creatinine 0.58 (0.52-1.04) mg/dL Estimated GFR > 60 (>60) mL/min BUN/Creatinine Ratio 20.7 (6-22) Glucose 93 (70-100) mg/dL Calcium 9.0 (8.4-10.2) mg/dL Total Bilirubin 0.4 (0.2-1.3) mg/dL AST 23 (14-36) IU/L ALT 21 (<35) IU/L Alkaline Phosphatase 56 (38-126) U/L Total Protein 7.3 (6.3-8.2) g/dL Albumin 4.3 (3.5-5.0) g/dL Globulin 3.0 (1.7-4.1) g/dL Albumin/Globulin Ratio 1.4 (1.0-2.8) Lipase 69 (23-300) U/L Urine RBC 0-1/hpf (0-5/HPF) Urine WBC 0-1/hpf (0-5/HPF) Ur Squamous Epith Cells 0-1 /hpf (0-5/HPF) Urine Bacteria None seen (None) Urine Mucus 1+ H (Negative) Point of care testing: Point of Care Testing Test Results Negative Urine Dip Bedside Urine Glucose Negative Bedside Urine Bilirubin - Negative Bedside Urine Ketone +++ 80 Urine Specific [place] 1.025 Bedside Urine Occult Blood - Negative Bedside Urine pH 6.0 Bedside Urine Protein + 30 Bedside Urine Urobilinogen - Negative Bedside Urine Nitrite - Negative Bedside Urine Leukocytes - Negative Esterase MDM Narrative Medical decision making narrative: This is a 27-year-old female with history of gastric sleeve recently started iron who is had black stools several days after she started iron which has been lightening up. She has had some abdominal discomfort and came today because she had quite a bit of epigastric discomfort. She is feeling improved right now. After discussions labs do not show any significant changes, CBC, CMP, lipase. Patient shows ketones, protein but no other signs of infection. is negative. Discussed patient's findings today. Discussed possible CT abdomen pelvis her overall abdominal exam is fairly benign. Discussed risks versus benefits at this time she defers which I think is appropriate. But discussed if she is having new or worsening symptoms should be re-evaluated. We also discussed that if she was having GI bleeding would recommend upper endoscopy for evaluation. We will have her hold her iron for several days see if this resolves the dark stools. Return precautions discussed. Discharge Plan Departure Patient Disposition: Home Clinical Impression: Abdominal pain Instructions: DI for Abdominal Pain-Adult Activity Restrictions/Additional Instructions: Follow-up for recheck, I would recommend if you are having persistent black or dark stools have EGD. Contact information is included below. Iron can cause black stools I would hold your iron supplementation for several days and see if this resolves the color changes. You can take medication such as Pepcid or Protonix once daily, this is available [id number]. Please return for fevers, rapidly worsening abdominal back or flank pain, persistent vomiting, persistent black or bloody stools, lightheadedness or passing out, difficulty with urination or other new or concerning changes. Prescriptions: No Action sumatriptan succinate 25 mg tablet See Rx Instructions PO .COMPLEX Qty: 10 3RF Rx Instructions: take 1 tab at onset of headache; if no relief may repeat 1 tab after at least 2 hrs; max = 4 tabs/24 hr PO Vitamin B12 10,000 mcg SUBCUT .WEEKLY Referrals: Lorraine Kelley MD [Physician] - Ciara Lopes DO [Primary Care Provider] - Stand Alone Forms: Patient Portal/API, Work Release Note
== END 2022-10-15 08:47 | disposition home or self-care (01) ==
PROVIDERS: Emergency Medicine; Emergency Provider Emergency Medicine; PCP Family Medicine
DX: R10.13 Epigastric pain (principal); Z98.84 Bariatric surgery status
CPT/HCPCS: 36415; 80053; 81003; 81015; 81025; 83690; 85025; 99283

== ENCOUNTER 2022-10-16 05:02 | Emergency (ER) | payer OTHER, MEDICAID, SELFPAY ==
[2022-10-16 05:09] VITALS: BP 130/79; PULSE 80; RESP 18; TEMP 36.6; O2SAT 100; BMI 28.3
--- NOTE | 2022-10-16 05:18 | ED_ITS ---
HPI - Headache General Chief Complaint: Headache Stated Complaint: abd pain, migraine Time Seen by Provider: 10/16/22 05:03 Source: patient Mode of arrival: Ambulatory History of Present Illness HPI Narrative: Patient is a 27-year-old female with history of migraines who is here for evaluation of a migraine. She was here within the past 36 hours for abdominal pain. She states she was having a migraine at that time but she was more con cerned about her abdominal pain. She was subsequently discharged home. She states that her abdominal pain has not completely resolved but it is actually much better however her headache has continued. She tried to take her migraine medications at home however they were several years old and did not provide any relief. She denies any fevers. No nausea or vomiting. No neck pain. Her headache today is typical for 1 of her prior migraines. Related Data Home Medications Medication Instructions Recorded Confirmed Vitamin B12 10,000 mcg SUBCUT .WEEKLY 07/09/22 Previous Rx's Medication Instructions Recorded sumatriptan succinate 25 mg tablet See Rx Instructions PO .COMPLEX 01/14/21 #10 tabs sumatriptan succinate 25 mg tablet See Rx Instructions PO .COMPLEX 10/16/22 #16 tabs Allergies Allergy/AdvReac Type Severity Reaction Status Date / Time amoxicillin [From Augmentin] Allergy Verified 07/07/22 13:53 clavulanic acid Allergy Verified 07/07/22 13:53 [From Augmentin] Review of Systems Constitutional Constitutional: Reports system reviewed and no additional complaints, except as documented Eyes Eyes: Reports system reviewed and no additional complaints, except as documented Gastrointestinal Gastrointestinal: Reports system reviewed and no additional complaints, except as documented Integumentary/Breasts Skin/Breast: Reports system reviewed and no additional complaints, except as documented Neurologic Neurologic: Reports system reviewed and no additional complaints, except as documented Patient History Medical History Depression Fracture Generalized anxiety disorder Hirsutism HPV in female Migraines Morbid obesity with BMI of 40.0-44.9, adult PCOS (polycystic ovarian syndrome) Surgical History [place] teeth extracted Family History Father Hypertension CVA (cerebral vascular accident) Social History marital status: unmarried,single number of children: 0 lives independently: Yes education level: high school occupational status: unemployed Smoking Status: Current some day smoker alcohol intake: current substance use type: does not use Smoking Status: Current some day smoker tobacco type: vaping alcohol intake frequency: holidays/special occasions only Substance Use Type: marijuana Exam Initial Vital Signs Initial Vital Signs: Vital Signs Temperature 97.9 F 10/16/22 05:09 Pulse Rate 80 10/16/22 05:09 Respiratory Rate 18 10/16/22 05:09 Blood Pressure 130/79 10/16/22 05:09 Pulse Oximetry 100 10/16/22 05:09 Oxygen Delivery Method Room Air 10/16/22 05:09 Const General: cooperative and No ill appearing HENMT Head: normal to inspection and normocephalic Face and sinus: normal facial exam Resp Effort & Inspection: normal respiratory effort Cardio Rate: regular rate Neuro General: patient alert, patient awake, patient oriented x3 and moves all extremities Cognition: normal cognition Speech: speech normal Gait: normal gait Extrem General: normal to inspection and capillary refill normal Course Orders Ordered: Sodium Chloride (Normal Saline 0.9%) 1,000 mls @ 1,000 mls/hr IV BOLUS ONE Stop: 10/16/22 06:21 Last Admin: 10/16/22 05:25 Dose: 1,000 mls/hr Documented By: MICHAEL Discontinued Medications Diphenhydramine HCl (Diphenhydramine 50 Mg/Ml Vial) 25 mg IV NOW ONE Stop: 10/16/22 05:19 Last Admin: 10/16/22 05:24 Dose: 25 mg Documented By: MICHAEL Metoclopramide HCl (Metoclopramide 10 Mg/2 Ml Inj) 10 mg IV NOW ONE Stop: 10/16/22 05:19 Last Admin: 10/16/22 05:25 Dose: 10 mg Documented By: MICHAEL Vital Signs Vital signs: Vital Signs - 8 hr 10/16/22 05:09 Temperature 97.9 F Pulse Rate 80 Respiratory Rate 18 Blood Pressure 130/79 Pulse Oximetry 100 Oxygen Delivery Method Room Air MDM - Headache MDM Narrative Medical decision making narrative: Patient reports improvement of symptoms after medication here in the emergency department. She states that she feels well enough to go home. I will refill her migraine medication. No indication for runny radiologic studies. She was given return precautions. She expressed understanding and agreement. Discharge Plan Departure Patient Disposition: Home Clinical Impression: Headache Instructions: DI for Migraine Activity Restrictions/Additional Instructions: Recommend that you continue to take all of your medications as directed. Contact your doctor for follow-up. Return to the emergency department for new symptoms. Prescriptions: New sumatriptan succinate 25 mg tablet See Rx Instructions .ROUTE .COMPLEX Qty: 16 0RF Rx Instructions: take 1 tab at onset of headache; if no relief may repeat 1 tab after at least 2 hrs; max = 4 tabs/24 hr No Action sumatriptan succinate 25 mg tablet See Rx Instructions PO .COMPLEX Qty: 10 3RF Rx Instructions: take 1 tab at onset of headache; if no relief may repeat 1 tab after at least 2 hrs; max = 4 tabs/24 hr PO Vitamin B12 10,000 mcg SUBCUT .WEEKLY Referrals: Ciara Lopes DO [Primary Care Provider] - Stand Alone Forms: Patient Portal/API, Work Release Note
[2022-10-16] MEDS: diphenhydrAMINE 50 MG/ML VIAL 25 MG IV (05:24)
[2022-10-16] MEDS: SODIUM CHLORIDE 0.9% 1,000 ML 1000 ML IV (05:25)
[2022-10-16] MEDS: METOCLOPRAMIDE 10 MG/2 ML INJ IV (05:25)
[2022-10-16 06:31] VITALS: BP 116/70; PULSE 76; RESP 18; O2SAT 99
== END 2022-10-16 06:32 | disposition home or self-care (01) ==
PROVIDERS: Emergency Provider Emergency Medicine; PCP Family Medicine
DX: G43.909 Migraine, unspecified, not intractable, without status migrainosus (principal); R10.9 Unspecified abdominal pain
CPT/HCPCS: 96361; 96374; 96375; 99283; 99284; J1200; J2765

== ENCOUNTER → 2023-05-17 11:21 | Outpatient (CLI) | payer OTHER, SELFPAY ==
[2023-05-17 12:42] LABS: HCG Quantitative /Beta subunit 1997.1 mIU/mL
== END ==
PROVIDERS: PCP Student in an Organized Health Care Education/Training Program; Referring Provider Family Medicine; Visit Provider Family Medicine
DX: N92.6 Irregular menstruation, unspecified (principal)
CPT/HCPCS: 36415; 84702

== ENCOUNTER → 2023-05-19 13:59 | Outpatient (CLI) | payer OTHER, SELFPAY ==
[2023-05-19 15:32] LABS: HCG Quantitative /Beta subunit 3488.3 mIU/mL
== END ==
PROVIDERS: PCP Student in an Organized Health Care Education/Training Program; Referring Provider Family Medicine; Visit Provider Family Medicine
DX: Z34.00 Encounter for supervision of normal first pregnancy, unspecified trimester (principal); Z32.01 Encounter for pregnancy test, result positive
CPT/HCPCS: 36415; 84702

== ENCOUNTER → 2023-05-20 10:06 | Outpatient (CLI) | payer OTHER, SELFPAY ==
--- NOTE | 2023-05-20 10:08 | DI.US.S_ITS ---
PROCEDURE: US OB <= 14 WEEKS FETUS INDICATIONS: DATING OUTSIDE/PRIOR DATING DATA: Last menstrual period (LMP): 04/12/2023. LMP-based estimated date of delivery (JESSIE): 01/17/2024. TECHNIQUE: Real-time scanning was performed of the fetus and maternal pelvic organs, with image documentation. Endovaginal scanning was also performed to better visualize the fetus and maternal ovaries. COMPARISON: None. FINDINGS: Embryo: Intrauterine gestational sac measuring 0.8 cm, estimated gestational age 5 weeks 4 days. pole not seen. A yolk sac is present. Maternal organs: Ovaries are within normal limits. Probable left corpus luteum. Multiple small ovarian follicles bilaterally. IMPRESSION: 1. Intrauterine gestational sac at estimated gestational age 5 weeks 4 days. No pole at this time. Recommend short-term interval OB ultrasound. 2. No perigestational hemorrhage. 3. Multiple small ovarian follicles. We strive to produce accurate, complete, and clear reports of imaging services. To assist us in improving patient care, this report was composed using standard report templates and voice recognition software. Therefore, it may contain abnormal punctuation, insertions and/or omissions. Occasional wrong-word or sound-alike substitutions may occur. Though we review the report and make efforts to correct it, we do recommend that the report be read carefully in proper context to recognize any text inaccuracies. Dictated by: Arden Rodríguez M.D. on 05/20/2023 at 19:33 Approved by: Arden Rodríguez M.D. on 05/20/2023 at 19:46
== END ==
LOC: US 10:06
PROVIDERS: PCP Student in an Organized Health Care Education/Training Program; Referring Provider Family Medicine; Visit Provider Family Medicine
DX: Z3A.01 Less than 8 weeks gestation of pregnancy; Z34.01 Encounter for supervision of normal first pregnancy, first trimester
CPT/HCPCS: 76801; 76817

== ENCOUNTER → 2023-05-27 15:28 | Outpatient (CLI) | payer OTHER, SELFPAY ==
[2023-05-27 17:07] LABS: Add Manual Diff / Slide Review NO; Basophils Absolute Auto 0 /uL (0-100); Basophils Percent Auto 0.2 % (0-2); Eosinophils Absolute Auto 0 /uL (0-450); Eosinophils Percent Auto 0.1 % (2-4); Hematocrit 41.8 % (36-46); Hemoglobin 14.2 g/dL (12.0-16.0); Lymphocytes Absolute Auto 2100 /uL (1100-4500); Lymphocytes Percent Auto 18.8 % (25-40); Mean Corpuscular Hemoglobin 29.7 PG (26-34); Mean Corpuscular Volume 87.4 fL (80-100); Monocytes Absolute Auto 400 /uL (0-900); Monocytes Percent Auto 3.9 % (3-14); Neutrophils Absolute Auto 8800 /uL (1500-7000); Platelet Count 283 X10^3/uL (150-400); Red Blood Cell Count 4.78 X10^6/uL (4.0-5.2); Red Cell Distribution Width 13.4 % (11.6-14.8); White Blood Cell Count 11.4 X10^3/uL (4.5-11.0)
[2023-05-27 17:26] LABS: Appearance Urine UA CLEAR; Bilirubin Urine UA NEGATIVE (NEGATIVE); Color Urine UA YELLOW; Glucose Urine UA NEGATIVE (Negative); Ketones Urine UA 2+ (NEGATIVE); Leukocyte Esterase Urine UA NEGATIVE (NEGATIVE); Nitrite Urine UA NEGATIVE (Negative); Occult Blood Urine UA NEGATIVE (Negative); Protein Urine UA NEGATIVE (Negative); Specific Gravity Urine UA >=1.030 (1.000-1.035); Urobilinogen Urine UA 0.2 E.U./dL (0.2)
[2023-05-27 18:27] LABS: Alanine Aminotransferase 13 IU/L (<35); Albumin 4.5 g/dL (3.5-5.0); Albumin Globulin Ratio 1.4 (1.0-2.8); Alkaline Phosphatase 54 U/L (38-126); Aspartate Aminotransferase 21 IU/L (14-36); BUN Creatinine Ratio 16.7 (6-22); Bilirubin Total 0.5 mg/dL (0.2-1.3); Blood Urea Nitrogen 8 mg/dL (7-17); Calcium 9.7 mg/dL (8.4-10.2); Carbon Dioxide 23 mmol/L (22-32); Chloride 102 mmol/L (98-107); Estimated Glomerular Filt Rate > 60 mL/min (>60); Globulin 3.3 g/dL (1.7-4.1); Glucose 74 mg/dL (70-100); HEMOLYSIS < 15 (0-50); Potassium 3.2 mmol/L (3.4-5.1); Sodium 137 mmol/L (137-145); Total Protein 7.8 g/dL (6.3-8.2)
[2023-05-27 18:55] LABS: HEMOLYSIS < 15 (0-50); Iron 64 ug/dL (37-170)
[2023-05-27 19:00] LABS: Ferritin 26 ng/mL (6-137)
[2023-05-27 19:08] LABS: Percent Iron Saturation 18 % (15-50); Total Iron Binding Capacity 360 ug/dL (265-497); Transferrin 294 mg/dL (206-381)
[2023-05-27 19:14] LABS: Hemoglobin A1C% w Est Avg Glu 4.7 % (4.0-6.0)
[2023-05-27 19:31] LABS: Folate > 20.0 ng/mL (2.76-20.0); Vitamin B12 665 pg/mL (239-931)
[2023-05-27 19:43] LABS: Urine N gonorrhoeae NOT DETECTED
[2023-05-27 20:09] LABS: Urine Chlamydia NOT DETECTED
[2023-05-27 20:20] LABS: Vitamin D 25 Hydroxy (D3) 36.6 ng/mL (30.0-100.0)
[2023-05-27 20:40] LABS: Hepatitis B Surface Antigen NEGATIVE s/c (NEGATIVE)
[2023-05-27 22:47] LABS: HIV 1 & 2 Ab/Ag 4th Gen Combo NEGATIVE (NEGATIVE)
[2023-05-28 04:05] LABS: Hep C Virus Ab w/Reflex Quant NEGATIVE s/c (NEGATIVE)
[2023-05-29 04:51] LABS: RPR Screen Non Reactive (Non Reactive)
[2023-05-29 08:15] LABS: Varicella IgG Antibody <135 index (Immune >165)
== END ==
PROVIDERS: PCP Student in an Organized Health Care Education/Training Program; Referring Provider Family Medicine; Visit Provider Family Medicine
DX: Z34.01 Encounter for supervision of normal first pregnancy, first trimester (principal); E28.2 Polycystic ovarian syndrome
CPT/HCPCS: 80053; 80055; 81003; 82306; 82607; 82728; 82746; 83036; 83540; 83550; 86787; 86803; 86850; 86900; 86901; 87086; 87389; 87491; 87591

== ENCOUNTER → 2023-06-03 10:16 | Outpatient (CLI) | payer OTHER, SELFPAY ==
--- NOTE | 2023-06-03 10:17 | DI.US.S_ITS ---
PROCEDURE: US OB <= 14 WEEKS FETUS INDICATIONS: second dating no pole OUTSIDE/PRIOR DATING DATA: Last menstrual period (LMP): 04/12/2019. LMP-based estimated date of delivery (JESSIE): 01/17/2024. First dating scan (date and location): This exam. Estimated date of delivery (JESSIE) from first dating scan: 01/21/2024. TECHNIQUE: Real-time scanning was performed of the fetus, with image documentation and biometric measurements. Endovaginal scanning: Yes. COMPARISON: [facility], OB <= 14 WEEKS FETUS, 05/20/2023, 10:36. FINDINGS: A single living intrauterine gestation is present. The crown-rump length measures 0.9 cm, with an estimated gestational age 6 weeks 6 days corresponding to ultrasound JESSIE 01/21/2024. There is heart tone with heart rate 144 BPM. A normal appearing yolk sac is present. No perigestational bleed. IMPRESSION: 1. A single living intrauterine gestation with an estimated gestational age of 6 weeks 6 days corresponding to ultrasound JESSIE 01/21/2024. Ultrasound dating is concordant with clinical dating. We strive to produce accurate, complete, and clear reports of imaging services. To assist us in improving patient care, this report was composed using standard report templates and voice recognition software. Therefore, it may contain abnormal punctuation, insertions and/or omissions. Occasional wrong-word or sound-alike substitutions may occur. Though we review the report and make efforts to correct it, we do recommend that the report be read carefully in proper context to recognize any text inaccuracies. Dictated by: Sal Kline M.D. on 06/03/2023 at 16:22 Approved by: Sal Kline M.D. on 06/03/2023 at 16:28
== END ==
LOC: US 10:16
PROVIDERS: PCP Student in an Organized Health Care Education/Training Program; Referring Provider Family Medicine; Visit Provider Family Medicine
DX: Z34.01 Encounter for supervision of normal first pregnancy, first trimester (principal); Z3A.01 Less than 8 weeks gestation of pregnancy
CPT/HCPCS: 76801; 76817

== ENCOUNTER → 2023-07-22 15:05 | Outpatient (CLI) | payer OTHER, SELFPAY | PROVIDERS: PCP Family Medicine; Referring Provider Family Medicine; Visit Provider Family Medicine | DX: O99.342 Other mental disorders complicating pregnancy, second trimester (principal) | CPT/HCPCS: 36415 ==

== ENCOUNTER → 2023-08-03 15:43 | Outpatient (CLI) | payer OTHER, SELFPAY ==
--- NOTE | 2023-08-03 15:44 | DI.US.S_ITS ---
PROCEDURE: US OB LIMITED INDICATIONS: 2ND DATING NO POLE OUTSIDE/PRIOR DATING DATA: Last menstrual period (LMP): 04/12/2019. LMP-based estimated date of delivery (JESSIE): 01/17/2024. First dating scan (date and location): 06/03/2023. Estimated date of delivery (JESSIE) from first dating scan: 01/21/2024. TECHNIQUE: Real-time scanning was performed of the fetus, with image documentation and biometric measurements. COMPARISON: [facility], OB <= 14 WEEKS FETUS, 06/03/2023, 10:38. FINDINGS: General: A single living intrauterine gestation is present. Presentation: Variable. Placenta: Placental position is posterior. There is a marginal appearance of the placenta. Amniotic fluid index: 10.3 cm, normal range is 5-24 cm. Single deepest vertical pocket is 3.9 cm. heart rate: 153 beats per minute. Maternal cervical canal: 3.9 cm long. Normal lower limit is 2.5 cm. biometrics: Clinically estimated gestational age: 16 weeks 1 day Composite gestational age from present scan: 15 weeks 6 days Estimated weight and percentile: 134 g 19th percentile Other: Not applicable. IMPRESSION: Single live intrauterine with gestational age today of 16 weeks 1 day. Appearance of marginal placental previa. Recommend short interval imaging follow-up. We strive to produce accurate, complete, and clear reports of imaging services. To assist us in improving patient care, this report was composed using standard report templates and voice recognition software. Therefore, it may contain abnormal punctuation, insertions and/or omissions. Occasional wrong-word or sound-alike substitutions may occur. Though we review the report and make efforts to correct it, we do recommend that the report be read carefully in proper context to recognize any text inaccuracies. Dictated by: Aundrea Dailey M.D. on 08/03/2023 at 17:03 Approved by: Aundrea Dailey M.D. on 08/03/2023 at 17:05
== END ==
PROVIDERS: PCP Family Medicine; Referring Provider Family Medicine; Visit Provider Family Medicine
DX: Z34.02 Encounter for supervision of normal first pregnancy, second trimester (principal); Z3A.16 16 weeks gestation of pregnancy
CPT/HCPCS: 76815

== ENCOUNTER → 2023-09-13 09:47 | Outpatient (CLI) | payer OTHER, SELFPAY ==
--- NOTE | 2023-09-13 09:47 | DI.US.S_ITS ---
PROCEDURE: US OB >= 14 WEEKS FETUS INDICATIONS: anatomy scan OUTSIDE/PRIOR DATING DATA: Last menstrual period (LMP): 04/12/2023. LMP-based estimated date of delivery (JESSIE): 01/17/2024. First dating scan (date and location): 06/03/2023. Estimated date of delivery (JESSIE) from first dating scan: 01/21/2024. The calculations are made using the working JESSIE of 01/17/2024. TECHNIQUE: Real-time scanning was performed of the fetus, with image documentation and biometric measurements. Endovaginal scanning: Not performed COMPARISON: None. FINDINGS: General: A single living intrauterine gestation is present. Presentation: Vertex Placenta: Placental position is posterior , without previa. Amniotic fluid index: 11.9 cm, normal range is 5-24 cm. Single deepest vertical pocket is 3.9 cm. heart rate: 141 beats per minute. Maternal cervical canal: 3.8 cm long. Normal lower limit is 2.5 cm. biometrics: Biparietal diameter: 5.2 cm, 21 weeks 6 days Head circumference: 18.7 cm, 21 weeks 0 days Abdominal circumference: 17.1 cm, 22 weeks 0 days Femur length: 3.5 cm, 21 weeks 0 days Clinically estimated gestational age: 22 weeks 0 days Composite gestational age from present scan: 21 weeks 3 days Estimated weight and percentile: 430 g, 20 second percentile Anatomic survey: Neuro: Ventricles are non-dilated at less than 10 mm. Cisterna magna is normal at 3-11 mm. Cerebellum is normal in size and morphology. Nuchal skin fold: Normal at less than 6 mm between 14-21 weeks gestational age. Face: Nose and lips, facial profile are normal. Spine: No evidence for spina bifida. Heart: 4-chambered heart is present, with normal ventricular outflow tracts. Diaphragm: Diaphragm is intact. Stomach: Left-sided stomach is present. Kidneys: No hydronephrosis. Normal is less than 5 mm in 2nd trimester, less than 7 mm in 3rd trimester. Cord: 3-vessel cord has orthotopic insertion. Bladder: Normal in size. Extremities: All 4 extremities identified. IMPRESSION: 1. Living 2nd trimester intrauterine with no sonographic evidence of complications. 2. Normal 2nd trimester anatomy study. We strive to produce accurate, complete, and clear reports of imaging services. To assist us in improving patient care, this report was composed using standard report templates and voice recognition software. Therefore, it may contain abnormal punctuation, insertions and/or omissions. Occasional wrong-word or sound-alike substitutions may occur. Though we review the report and make efforts to correct it, we do recommend that the report be read carefully in proper context to recognize any text inaccuracies. Dictated by: Javier Minor M.D. on 09/13/2023 at 15:53 Approved by: Javier Minor M.D. on 09/13/2023 at 15:56
== END ==
PROVIDERS: PCP Family Medicine; Referring Provider Family Medicine; Visit Provider Family Medicine
DX: Z34.02 Encounter for supervision of normal first pregnancy, second trimester (principal); Z3A.21 21 weeks gestation of pregnancy
CPT/HCPCS: 76811

== ENCOUNTER 2023-10-22 08:03 | Outpatient (CLI) | payer OTHER, SELFPAY ==
[2023-10-22 08:37] LABS: Appearance Urine UA CLEAR; Bilirubin Urine UA NEGATIVE (NEGATIVE); Color Urine UA YELLOW; Glucose Urine UA NEGATIVE (Negative); Ketones Urine UA NEGATIVE (NEGATIVE); Leukocyte Esterase Urine UA NEGATIVE (NEGATIVE); Nitrite Urine UA NEGATIVE (Negative); Occult Blood Urine UA NEGATIVE (Negative); Protein Urine UA NEGATIVE (Negative); Urobilinogen Urine UA 0.2 E.U./dL (0.2)
[2023-10-22 08:38] LABS: Urine Volume 10mL (spun); pH Urine UA 7.5 (4.5-8.0)
[2023-10-22 08:40] LABS: Bacteria Urine None Seen; Culture Indicated Urine Cult Not Indicated; RBC Urine None Seen (0-5/HPF); Squamous Epithelial Cell Urine 1-5 /HPF (0-5/HPF); WBC Urine None Seen (0-5/HPF)
== END 2023-10-22 09:55 | disposition home or self-care (01) ==
LOC: LABOR 08:32 → OB 10-26 06:16
PROVIDERS: PCP Family Medicine; Referring Provider Student in an Organized Health Care Education/Training Program; Visit Provider Student in an Organized Health Care Education/Training Program
DX: O36.8120 Decreased fetal movements, second trimester, not applicable or unspecified (principal); Z3A.27 27 weeks gestation of pregnancy
CPT/HCPCS: 59025; 81001; G0378; G0379

== ENCOUNTER → 2023-12-20 14:23 | Outpatient (CLI) | payer OTHER, SELFPAY ==
--- NOTE | 2023-12-20 14:24 | DI.US.S_ITS ---
PROCEDURE: US OB FOLLOW UP INDICATIONS: Assess for growth, measuring small for dates OUTSIDE/PRIOR DATING DATA: Last menstrual period (LMP): 04/12/2023. LMP-based estimated date of delivery (JESSIE): 01/17/2024. First dating scan (date and location): 06/03/2023. Estimated date of delivery (JESSIE) from first dating scan: 01/21/2024. The calculations are made using the clinical JESSIE of 01/17/2024. TECHNIQUE: Real-time scanning was performed of the fetus, with image documentation and biometric measurements. COMPARISON: [facility], OB >= 14 WEEKS FETUS, 09/13/2023, 9:54. FINDINGS: General: A single living intrauterine gestation is present. Presentation: Vertex. Placenta: Placental position is posterior , without previa. Amniotic fluid index: 14.5 cm, normal range is 5-24 cm. Single deepest vertical pocket is 5.6 cm. heart rate: 160 beats per minute. Maternal cervical canal: Not obtained biometrics: Biparietal diameter: 8.4 cm 33 weeks 5 days Head circumference: 29.8 cm 33 weeks 1 day Abdominal circumference: 28.8 cm 32 weeks 6 days Femur length: 6.6 cm 34 weeks 0 days Clinically estimated gestational age: 36 weeks 0 days Composite gestational age from present scan: 33 weeks 3 days Estimated weight and percentile: 2161 g, 3rd percentile, compared to 20 second percentile on prior exam. Other: Not applicable. IMPRESSION: Single live into with gestational age of 33 weeks 3 days compared to 30/6 weeks 0 days by clinical dating. percentile is at the 3rd percentile with abdominal circumference at the 1st percentile. Overall appearance demonstrates microsomia. Recommend further clinical and imaging follow-up evaluation. We strive to produce accurate, complete, and clear reports of imaging services. To assist us in improving patient care, this report was composed using standard report templates and voice recognition software. Therefore, it may contain abnormal punctuation, insertions and/or omissions. Occasional wrong-word or sound-alike substitutions may occur. Though we review the report and make efforts to correct it, we do recommend that the report be read carefully in proper context to recognize any text inaccuracies. Dictated by: Aundrea Dailey M.D. on 12/20/2023 at 15:26 Approved by: Aundrea Dailey M.D. on 12/20/2023 at 15:28
== END ==
PROVIDERS: PCP Family Medicine; Referring Provider Family Medicine; Visit Provider Family Medicine
DX: O99.843 Bariatric surgery status complicating pregnancy, third trimester (principal); Z3A.33 33 weeks gestation of pregnancy
CPT/HCPCS: 76816

== ENCOUNTER 2023-12-20 16:12 | Outpatient (CLI) | payer OTHER, SELFPAY ==
--- NOTE | 2023-12-20 17:04 | DI.US.S_ITS ---
PROCEDURE: US OB BIOPHYSICAL PROFILE INDICATIONS: IUGR OUTSIDE/PRIOR DATING DATA: Last menstrual period (LMP): 04/12/2023. LMP-based estimated date of delivery (JESSIE): 01/17/2024. First dating scan (date and location): 06/03/2023. Estimated date of delivery (JESSIE) from first dating scan: 01/21/2024. The calculations are made using the clinical JESSIE of 01/17/2024. TECHNIQUE: Real-time scanning was performed of the fetus for biophysical profile, with image documentation. Color and pulse Doppler interrogation was also performed of the umbilical artery near its insertion into the placenta. Endovaginal scanning: Not performed COMPARISON: [facility], , OB FOLLOW UP, 12/20/2023, 14:37. FINDINGS: General: A single living intrauterine gestation is present. Presentation: Vertex. Placenta: Placental position is posterior , without previa. Amniotic fluid index: 7.7 cm, normal range is 5-24 cm. Single deepest vertical pocket is 3.8 cm. heart rate: 135 beats per minute. Maternal cervical canal: Not well seen Clinically estimated gestational age: 36 weeks, 0 days Biophysical profile: Tone: 2 points. Movement: 2 points. Respiration: 2 points. Largest pocket of fluid: 2 points. Umbilical artery Doppler: 1.8-2.6 IMPRESSION: 1. Single live intrauterine consistent with 36 weeks and 0 days. Amniotic fluid index is on the lower side of normal measuring 7.7 cm which is decreased compared to earlier in the day. 2. Normal biophysical profile. Normal umbilical artery Dopplers. We strive to produce accurate, complete, and clear reports of imaging services. To assist us in improving patient care, this report was composed using standard report templates and voice recognition software. Therefore, it may contain abnormal punctuation, insertions and/or omissions. Occasional wrong-word or sound-alike substitutions may occur. Though we review the report and make efforts to correct it, we do recommend that the report be read carefully in proper context to recognize any text inaccuracies. Dictated by: Asad Husain M.D. on 12/20/2023 at 18:26 Approved by: Asad Husain M.D. on 12/20/2023 at 18:29
--- NOTE | 2023-12-20 17:27 | P.TNLD_ITS ---
Visit Information Visit Information Date of evaluation: 12/20/23 Primary OB Provider: Regina Bucio On-call OB Provider: Anya Dobbins Comments/Additional reasons for admission: 28yo at 36w1d here for NST for FGR. Pt had a growth u/s completed earlier today showing FGR with EFW 3rd percentile and abdominal circumference 1st percentile. Pt is feeling her baby move regularly. No LOF, vaginal bleeding, contractions. [facility] Medical History (Updated 12/20/23 @ 17:36 by Anya Dobbins MD) Marginal placenta previa Morbid obesity with BMI of 40.0-44.9, adult Fracture Surgical History (Updated 05/27/23 @ 18:12 by Regina Bucio MD) History of bariatric surgery [place] teeth extracted Family History (Updated 05/19/23 @ 15:39 by Mary Mae RN) Father Hypertension CVA (cerebral vascular accident) Diabetes mellitus Grandfather Heart attack Grandfather Cancer Brother Heart attack Social History marital status: number of children: 0 household members: spouse and family (parents and brother) lives independently: Yes caregiver/support person: No housing: other (mobile home) pets and animals: Yes (3 dogs and 1 cat, bird, not responsible for either litter box or bird) education level: college (some college) 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 current occupational exposures/hazards: No rhea/hoahaoism: Religious special rhea needs: No travel history: over 6 months ago seatbelt use: always helmet use: Yes water heater temp set < 120 deg: Yes working smoke detector in home: Yes fire extinguisher in home: Yes carbon monox detector in home: Yes firearms in home: No do you feel safe at home: Yes Smoking Status: Former smoker (quit vaping when she learned she was ) Tobacco: How many years used: 4 second hand exposure: Yes alcohol intake: former (occasionally when not ) substance use type: marijuana (smokes for anxiety; aware that this is not advi sed in /) during the past year weight has: decreased > 10 lbs (bariatric surgery May 2022) well-balanced diet: rarely or never (will work on this) daily servings fruits/ve-1 caffeine: Yes (energy drinks or espresso, stopped Red bull with ) Type(s) of exercise: walking and other (moderate to sometimes heavy lifting at work) Evaluation Evaluation Baseline heart rate: 135 Variability: Moderate (11-25) monitor accelerations: Present Monitor Decelerations: Absent Category of Tracing: Reactive Diagnosis, Plan/Disposition Final Diagnosis (1) growth restriction: Status: Acute Plan/Disposition Plan: 28yo at 36w1d here for NST for FGR. NST reactive. U/S with BPP of 8/8 and reassuring umbilical artery doppler ratio 1.8 placenta and abd cord insertion site and 2.6 mid. IOL scheduled for 12/25 into 12/26. Can have cervix checked in clinic at scheduled appt 12/22. Stable for d/c home today with strict kick count instructions. OB Disposition: home
== END 2023-12-20 18:20 | disposition home or self-care (01) ==
LOC: OB 12-22 09:59
PROVIDERS: PCP Family Medicine; Referring Provider Family Medicine; Visit Provider Family Medicine
DX: O36.5930 Maternal care for other known or suspected poor fetal growth, third trimester, not applicable or unspecified (principal); Z3A.36 36 weeks gestation of pregnancy; O99.843 Bariatric surgery status complicating pregnancy, third trimester; Z3A.33 33 weeks gestation of pregnancy
CPT/HCPCS: 59025; 76816; 76819; 76820; 84112; G0378; G0379

== ENCOUNTER → 2023-12-23 14:56 | Outpatient (CLI) | payer OTHER, SELFPAY ==
[2023-12-24 14:36] LABS: Strep Grp B PCR NEG for Grp B Strep
== END ==
PROVIDERS: PCP Family Medicine; Visit Provider Family Medicine
DX: Z34.00 Encounter for supervision of normal first pregnancy, unspecified trimester (principal)
CPT/HCPCS: 87653

== ENCOUNTER 2023-12-23 15:07 | Outpatient (CLI) | payer OTHER, SELFPAY | END 2023-12-23 16:56 | disposition home or self-care (01) | LOC: OB 12-27 10:34 | PROVIDERS: PCP Family Medicine; Referring Provider Student in an Organized Health Care Education/Training Program; Visit Provider Student in an Organized Health Care Education/Training Program | DX: O99.323 Drug use complicating pregnancy, third trimester (principal); F12.90 Cannabis use, unspecified, uncomplicated; O99.343 Other mental disorders complicating pregnancy, third trimester; F32.A Depression, unspecified; F41.9 Anxiety disorder, unspecified; O99.283 Endocrine, nutritional and metabolic diseases complicating pregnancy, third trimester; E28.2 Polycystic ovarian syndrome; O99.843 Bariatric surgery status complicating pregnancy, third trimester; Z3A.36 36 weeks gestation of pregnancy | CPT/HCPCS: 59025; 87653; G0378; G0379 ==

== ENCOUNTER 2023-12-30 15:13 | Outpatient (CLI) | payer OTHER, SELFPAY | END 2023-12-30 16:15 | disposition home or self-care (01) | LOC: OB 01-03 06:12 | PROVIDERS: PCP Family Medicine; Referring Provider Family Medicine; Visit Provider Family Medicine | DX: O99.323 Drug use complicating pregnancy, third trimester (principal); F12.90 Cannabis use, unspecified, uncomplicated; O99.283 Endocrine, nutritional and metabolic diseases complicating pregnancy, third trimester; E28.2 Polycystic ovarian syndrome; O99.343 Other mental disorders complicating pregnancy, third trimester; F41.9 Anxiety disorder, unspecified; F32.A Depression, unspecified; Z3A.37 37 weeks gestation of pregnancy | CPT/HCPCS: 59025; G0378; G0379 ==

== ENCOUNTER 2024-01-06 15:03 | Outpatient (CLI) | payer OTHER, SELFPAY | END 2024-01-06 16:45 | disposition home or self-care (01) | LOC: LABOR 15:06 → OB 01-07 15:08 | PROVIDERS: PCP Family Medicine; Referring Provider Family Medicine; Visit Provider Family Medicine | DX: O36.5930 Maternal care for other known or suspected poor fetal growth, third trimester, not applicable or unspecified (principal); O99.323 Drug use complicating pregnancy, third trimester; F12.90 Cannabis use, unspecified, uncomplicated; Z3A.38 38 weeks gestation of pregnancy | CPT/HCPCS: 59025; G0378; G0379 ==

== ENCOUNTER 2024-01-11 18:58 | Inpatient (IN) | payer OTHER, SELFPAY ==
--- NOTE | 2024-01-11 19:33 | P.HPOB_ITS ---
OB HPI Date/Time Date of admission: 01/11/24 Date Patient Seen: 01/12/24 Time Patient Seen: 07:25 History of Present Condition Chief complaint: INDUCTION : 1 Para: 0 Estimated Date of Delivery: 01/16/24 Estimated Gestational Age (weeks): 39w2d Narrative: Yuliana Cosby is a 28 year old presenting for mIOL at 39w3d at recommendation of MFM due to borderline IUGR. growth was found to be small on 3rd trimester US and she was referred to [facility], who repeated growth and found EFW at 10%ile. They recommended weekly monitoring and IOL at 39 weeks. has been complicated by anxiety/depression not on medication, Marijuana use for sleep and nausea and marginal placenta which has since resolved on f/up Us in August. has also been complciated by history of gastric bypass in 2022 which prevented routine Glucola testing. She was able to use a glucometer for testing SHe was started on Cytotec last night and this AM is feeling contractions. She is feeling baby move and is overall feeling excited about being here. No Pre-E sx. Indications Indication for induction OB: other ( growth restriction (10%ile but [facility] recommendation for induction at 39 weeks) ) History of Present care: good care Dating criteria: based on 1st trimester US only (inconsistent with LMP by 4 weeks ) Ultrasounds: abnormal US findings (placenta previous on anatomy US, resolved on f/up US in August ) Abnormal ultrasound findings: FGR on US, seen by [facility], growth at 10%ile Obstetrical complications: growth restriction Medical complications: other (hx of gastric bypass ) Preadmission Labs Blood type: O (+) positive -: Antibody screen: negative, GBS status: negative, HBsAG: negative, HIV: negative and RPR/VDLR: negative -: Chlamydia screen: not detected and Gonorrhea screen: not detected -: Rubella: immune and Varicella: not immune HCT: 13.9 HCAB: negative PAP: Normal Cell-free DNA: low risk male Evaluation Evaluation Baseline heart rate: 120 Variability: Moderate (11-25) monitor accelerations: Present Monitor Decelerations: Absent Contraction Frequency (minutes): 3 Category of Tracing: Reactive Status: Category l Dilation (cm): 1 Effacement (%): 50 Dilation: 1-2 cm Effacement: 40-50% station: -2 [facility] Medical History (Updated 12/20/23 @ 17:36 by Anya Dobbins MD) Marginal placenta previa Morbid obesity with BMI of 40.0-44.9, adult Fracture Surgical History (Updated 05/27/23 @ 18:12 by Regina Bucio MD) History of bariatric surgery [place] teeth extracted Family History (Updated 05/19/23 @ 15:39 by Mary Mae RN) Father Hypertension CVA (cerebral vascular accident) Diabetes mellitus Grandfather Heart attack Grandfather Cancer Brother Heart attack Social History marital status: number of children: 0 household members: spouse and family (parents and brother) lives independently: Yes caregiver/support person: No housing: other (mobile home) pets and animals: Yes (3 dogs and 1 cat, bird, not responsible for either litter box or bird) education level: college (some college) occupational status: employed ([employer]) and unemployed current occupational exposures/hazards: No rhea/buddhist: Scientology special rhea needs: No travel history: over 6 months ago seatbelt use: always helmet use: Yes water heater temp set < 120 deg: Yes working smoke detector in home: Yes fire extinguisher in home: Yes carbon monox detector in home: Yes firearms in home: No do you feel safe at home: Yes Smoking Status: Former smoker Tobacco: How many years used: 4 second hand exposure: Yes alcohol intake: former (occasionally when not ) substance use type: marijuana (smokes for anxiety; aware that this is not advised in /) during the past year weight has: decreased > 10 lbs (bariatric surgery May 2022) well-balanced diet: rarely or never (will work on this) daily servings fruits/ve-1 caffeine: Yes (energy drinks or espresso, stopped Red bull with ) Type(s) of exercise: walking and other (moderate to sometimes heavy lifting at work) Meds Home Medications and Allergies Home Medications Medication Instructions Recorded Confirmed Type sumatriptan succinate 25 mg tablet See Rx Instructions PO .COMPLEX 10/16/22 01/11/24 Rx #16 tabs calcium carbonate (Calcium 500) 500 mg PO DAILY 03/18/23 01/11/24 History omeprazole 20 mg capsule,delayed 20 mg PO DAILY 03/18/23 01/11/24 History release ferrous sulfate 325 mg (65 mg 325 mg PO DAILY 05/19/23 01/11/24 History iron) tablet (Feosol) doxylamine succinate 25 mg tablet 25 mg PO BEDTIME PRN sleep #60 tabs 05/27/23 01/11/24 Rx (Unisom (doxylamine)) pyridoxine (vitamin B6) 10 mg 10 mg PO DAILY #60 tabs 05/27/23 01/11/24 Rx tablet folic acid 1 mg tablet 4 mg (4 x 1 mg) PO DAILY #120 tabs 06/21/23 01/11/24 Rx glucometer #1 ea 09/16/23 01/06/24 Rx glucose test strips #50 ea 09/16/23 01/06/24 Rx lancet #50 ea 09/16/23 01/06/24 Rx sharps container #1 ea 09/16/23 01/06/24 Rx escitalopram oxalate 5 mg tablet 5 mg PO DAILY #60 tabs 12/30/23 01/11/24 Rx (Lexapro) Allergies Allergy/AdvReac Type Severity Reaction Status Date / Time clavulanic acid Allergy Intermediate Facial Verified 01/06/24 14:29 [From Augmentin] swelling Review of Systems Review of Systems Narrative: + movement + contraction s - LOF - vag bleeding OB Exam Vital signs Blood Pressure: 110/56 Pulse Rate: 69 Narrative Exam Narrative: Gen: well appearing, sitting on yoga ball CV: warm and well perfused Pulm: breathing comfortably on RA ABd: gravid Objective Labs 01/12/24 12:12 Assessment and Plan Assessment and Plan Assessment and Plan narrative: Yuliana Cosby is a 28 year old presenting for mIOL at 39w3d at recommendation of MFM due to borderline IUGR. #mIOL: - admit to LD - TS and CBC - Cephalic by bedside US - GBs negative - Start cytotec, 25mcg once then increase to 50mcg - Continuous monitoring, Yaz in place # possible growth restriction - continuous monitoring, if concerning features of FHT will have peds at delivery # hx of gastric bypass - Awareness if pt requires CS - no GTT done, checked sugars for 2 weeks and nml # Anxiety: not on meds Time-Based Coding :: [TOTAL MINUTES] spent with patient and on the chart (including review of chart, obtaining history, exam, reviewing outside data, placing orders, documenting exam and treatment plan, and counseling patient) on [DATE].
[2024-01-11 20:00] LABS: Add Manual Diff / Slide Review NO; Basophils Absolute Auto 0 /uL (0-100); Basophils Percent Auto 0.5 % (0-2); Eosinophils Absolute Auto 100 /uL (0-450); Eosinophils Percent Auto 0.6 % (2-4); Hematocrit 37.4 % (36-46); Hemoglobin 12.6 g/dL (12.0-16.0); Lymphocytes Absolute Auto 2400 /uL (1100-4500); Lymphocytes Percent Auto 24.7 % (25-40); Mean Corpuscular HGB Conc 33.7 % (30-36); Mean Corpuscular Hemoglobin 29.7 PG (26-34); Mean Corpuscular Volume 88.1 fL (80-100); Monocytes Absolute Auto 600 /uL (0-900); Monocytes Percent Auto 5.8 % (3-14); Neutrophils Absolute Auto 6600 /uL (1500-7000); Neutrophils Percent Auto 68.4 % (50-75); Platelet Count 215 X10^3/uL (150-400); Red Blood Cell Count 4.25 X10^6/uL (4.0-5.2); Red Cell Distribution Width 13.4 % (11.6-14.8); White Blood Cell Count 9.7 X10^3/uL (4.5-11.0)
[2024-01-11 20:37] VITALS: BP 110/56
[2024-01-11] MEDS: miSOPROStoL 25 MCG TABLET PO (20:56)
[2024-01-12] MEDS: miSOPROStoL 25 MCG TABLET PO ×4 (00:58→05:02)
[2024-01-12 08:53] VITALS: BP 110/56; PULSE 69
[2024-01-12] MEDS: TERBUTALINE 1 MG/ML VIAL 0.25 MG SUBCUT (11:52)
--- NOTE | 2024-01-12 11:59 | PM.OBPNLAB ---
Date/Time Date Patient Seen: 01/12/24 Time Patient Seen: 12:05 Pain Control Pain control: tolerating well Pelvic Exam Dilation (cm): 1 Effacement (%): 60 station: -2 Amniotic membrane status: Intact Contractions Contractions on admission: none Monitor mode: External Contraction frequency (min): 2 Contraction pattern: Regular Contraction intensity: Moderate Status status: Category ll Heart Rate Baseline: 125 Monitor Accelerations: Present Monitor Decelerations: Late Monitor Variability: Moderate Assessment and Plan Assessment: other (placenta aburption) Plan: Comments: 28 yo G1 presenting for mIOL for presumed growth restriction. mIOL was started with cytotec, which she tolerated well until 1129 when she stool and noted a large pool of blood. On exam, there is pooling blood at introitus and running down the legs. FHT showed occasional late decelerations but with good variability. On bedside Us there is concern for placental seperation/abruption. Discussed recommendation to move to CS and pt is agreeable. Pt does have a hx of gastric bypass so anticipate possibiliy of scar tissue on entry, will attempt to place spinal while FHT overall reassuring rather than moving to general immediately but if FHT deteriorates will move to general anesthesia. Anesthsia aware. # placenta abruption - CS consent signed - Ancef for surgical ppx - membranes intact - GBD negative - Cephalic presentation - 2 large bore IVs, type and screen up to date
[2024-01-12] MEDS: CITRIC ACID/SODIUM CITRATE 15 ML SOLUTION 30 ML PO (12:08)
[2024-01-12 12:18] LABS: Add Manual Diff / Slide Review NO; Basophils Absolute Auto 0 /uL (0-100); Basophils Percent Auto 0.3 % (0-2); Eosinophils Absolute Auto 0 /uL (0-450); Eosinophils Percent Auto 0.2 % (2-4); Hematocrit 41.2 % (36-46); Hemoglobin 13.9 g/dL (12.0-16.0); Lymphocytes Absolute Auto 2600 /uL (1100-4500); Lymphocytes Percent Auto 25.1 % (25-40); Mean Corpuscular HGB Conc 33.8 % (30-36); Mean Corpuscular Hemoglobin 29.8 PG (26-34); Mean Corpuscular Volume 88.4 fL (80-100); Monocytes Absolute Auto 600 /uL (0-900); Monocytes Percent Auto 6.1 % (3-14); Neutrophils Absolute Auto 7000 /uL (1500-7000); Neutrophils Percent Auto 68.3 % (50-75); Platelet Count 186 X10^3/uL (150-400); Red Blood Cell Count 4.66 X10^6/uL (4.0-5.2); Red Cell Distribution Width 13.2 % (11.6-14.8); White Blood Cell Count 10.3 X10^3/uL (4.5-11.0)
[2024-01-12] MEDS: CEFAZOLIN 2 GM/100 ML PREMIX 100 ML IV (12:36)
--- NOTE | 2024-01-12 12:43 | SUR.OPER ---
Supine on Padded OR bed, head on pillow, safety belt at thigh, arms secured on padded arm boards at <90 degrees abduction. Bump under right buttock. Legs uncrossed with pillow under knees, gel pad to heels, tape over blanket to lower legs.
[2024-01-12] MEDS: TRANEXAMIC ACID 1,000 MG in SODIUM CHLORIDE 0.9% 100 ML 600 MG IV (12:52)
--- NOTE | 2024-01-12 12:52 | SUR.OPER ---
baby birthed viable at 1251
[2024-01-12] MEDS: OXYTOCIN 10 UNIT/ML VIAL IM (12:55)
[2024-01-12 13:52] VITALS: BP 109/73; PULSE 59; RESP 14; TEMP 36.2; O2SAT 100
[2024-01-12 13:58] VITALS: BP 115/62; PULSE 61; RESP 18; O2SAT 100
[2024-01-12 14:02] VITALS: BP 108/62; PULSE 59; RESP 15; TEMP 36.1; O2SAT 100
[2024-01-12] MEDS: miSOPROStoL 200 MCG TABLET 800 MCG PR (14:45)
[2024-01-12] MEDS: LACTATED RINGERS 1,000 ML 100 ML IV (14:50)
--- NOTE | 2024-01-12 14:57 | P.OP_ITS ---
Operative Date/Time/Diagnoses Date of procedure: 01/12/24 Time of procedure: 12:00 Pre-op diagnosis: concern for placental abruption Post-op diagnosis: same Procedure & Clinicians Procedure: Primary LTCS Same procedure as scheduled: Yes Indications: Placental aburptio n Surgeon: Regina Bucio Click Yes if Unassisted: No Radiologist Physician: Coco Farah Reason for Radiologist Physician: Radiologist Physician required for the safe, effective, and timely completion of this surgery. The web press operator assistant was necessary to retract upon entry into the abdomen and uterus. Assisted with delivery of the infant with fundal pressure. Assisted with closure with retraction, holding suture, and closure of the contralateral fascia. Anesthesia Type: Spinal Operative Notes Findings: Normal uterus, ovaries, and tubes Closure Type: primary Specimen(s): cord blood Intraoperative meds administered: Duramorph, Ketorolac, Pitocin and Tranexamic acid Applied: Catheter Estimated Blood Loss (mL): 1,200 Blood products transfused: none Procedure in detail: OPERATIVE COURSE: The patient was taken to the operating room where spinal anesthesia was placed. ANcef was given for surgical ppx. She was then prepared and draped in the normal sterile fashion in the dorsal supine position with a leftward tilt. Anesthesia was tested and found to be adequate. A Pfannensteil skin incision was then made with the scalpel and carried through to the underlying layer of fascia with the scalpel. The fascia was incised in the midline and the incision extended laterally bluntly. The rectus muscles were then in the midline, and the peritoneum was identified and entered bluntly. The peritoneal incision was then extended with good visualization of the bladder. Retraction was provided by the surgical instrument maker. The bladder blade was then inserted and the vesicouterine peritoneum identified. No bladder flap was created. The bladder blade was then reinserted and the lower uterine segment incised in a transverse fashion with the scalpel, with the surgical instrument maker providing suction. The uterine incision was then extended superolaterally by pulling sup erolaterally on both sides. Membranes were ruptured and fluid was clear. The bladder blade was removed the infant's head was flexed out of dorect OA position and delivered atraumatically, with fundal pressure by the surgical instrument maker. The nose and mouth were suctioned with bulb suction and the cord was clamped and cut. The nose and mouth were suctioned with bulb suction and the cord was clamped and cut after a 60 second delay. The infant was handed off to the waiting nursing staff. Cord blood was collected. Time of delivery was 12:51. APGARS were 8 and 8 at one and five minutes respectively. The placenta was then delivered with gentle cord traction. A large clot was noted behind the placenta. The uterus was then exteriorized and cleared of all clots and debris. The uterine incision was repaired with 0 Chromic in a running, locked fashion. A second layer of 0 Vicryl was used to imbircate, which achieved appropraite hemostasis. 1gTXA and 10u of intrauterine pitocin were given due to poor uterine tone and bleeding while repairing the hysterotomy. The uterus was returned to the abdomen. The gutters were cleared of all clots. Hysterotomy was investigated and found to be hemostatic. The peritoneum was not closed. The fascia was reapproximated with 0 Vicryl in a running fashion. The subcutaneous tissue was reapproximated with 3-0 vicryl. The skin was closed with 4-0 monocryl. The surgical instrument maker helped with retraction during closures. SPONGE AND NEEDLE COUNTS: Correct x3. DRESSING: Aquacel ANTICOAGULATION: SCDs applied prior to Surgery Preop antibiotics given (see MAR). The patient was taken to recovery room having tolerated procedure well. Bleeding did continue, requiring use of 800mcg of rectal cytotec. Following cytotec, bleeding slowed to an appropriate rate. Pt remained asymptomatic Infant weight: 2456g Complications: other (placental abruption, hemorrhage ) Post-operative Condition: stable Disposition: PACU Aftercare: routine postop
[2024-01-12] MEDS: OXYCODONE IR 5 MG TABLET PO (16:57)
[2024-01-12] MEDS: KETOROLAC 30 MG/ML VIAL IV (21:33)
[2024-01-12] MEDS: ACETAMINOPHEN 325 MG TABLET 650 MG PO (23:55)
[2024-01-13] MEDS: KETOROLAC 30 MG/ML VIAL IV ×2 (03:25→09:34)
[2024-01-13 06:23] LABS: Add Manual Diff / Slide Review NO; Basophils Absolute Auto 100 /uL (0-100); Basophils Percent Auto 0.4 % (0-2); Eosinophils Absolute Auto 0 /uL (0-450); Hematocrit 29.2 % (36-46); Hemoglobin 9.9 g/dL (12.0-16.0); Lymphocytes Absolute Auto 1800 /uL (1100-4500); Lymphocytes Percent Auto 14.1 % (25-40); Mean Corpuscular Hemoglobin 29.7 PG (26-34); Mean Corpuscular Volume 87.2 fL (80-100); Monocytes Absolute Auto 900 /uL (0-900); Monocytes Percent Auto 7.2 % (3-14); Neutrophils Absolute Auto 10000 /uL (1500-7000); Neutrophils Percent Auto 78.3 % (50-75); Platelet Count 171 X10^3/uL (150-400); Red Blood Cell Count 3.34 X10^6/uL (4.0-5.2); Red Cell Distribution Width 13.3 % (11.6-14.8); White Blood Cell Count 12.8 X10^3/uL (4.5-11.0)
--- NOTE | 2024-01-13 08:04 | P.PNOB_ITS ---
Subjective - OB Subjective Date Patient Seen: 01/13/24 Time Patient Seen: 08:05 Exam Vital Signs (past 8 hours): Oxygen Delivery Method Room Air Objective Labs 01/13/24 06:13 Labs: Laboratory Results - last 24 hr 01/12/24 01/13/24 12:12 06:13 WBC 10.3 12.8 H RBC 4.66 3.34 L Hgb 13.9 9.9 L Hct 41.2 29.2 L MCV 88.4 87.2 MCH 29.8 29.7 MCHC 33.8 34.0 RDW 13.2 13.3 Plt Count 186 171 Neut % (Auto) 68.3 78.3 H Lymph % (Auto) 25.1 14.1 L [place] % (Auto) 6.1 7.2 Eos % (Auto) 0.2 L 0.0 L Baso % (Auto) 0.3 0.4 Neut # (Auto) 7000 01571 H Lymph # (Auto) 2600 1800 [place] # (Auto) 600 900 Eos # (Auto) 0 0 Baso # (Auto) 0 100 Assessment & Plan Time-Based Coding :: [TOTAL MINUTES] spent with patient and on the chart (including review of chart, obtaining history, exam, reviewing outside data, placing orders, documenting exam and treatment plan, and counseling patient) on [DATE].
[2024-01-13] MEDS: hydrOXYzine HCL 25 MG TABLET PO (09:04)
[2024-01-13] MEDS: PRENATAL VIT,CALC/IRON/FOLIC 1 TABLET 1 TAB PO (10:23)
[2024-01-13] MEDS: polyethylene glycoL 3350 17 GM POWD.PACK PO (10:26)
[2024-01-13] MEDS: ACETAMINOPHEN 325 MG TABLET 650 MG PO (11:39)
--- NOTE | 2024-01-13 15:22 | P.DS_ITS ---
Discharge Providers Provider Date of admission: 01/11/24 18:58 Discharge Date: 01/13/24 Primary care physician: Regina Bucio MD Consults: 01/12/24 14:52 Consult to Boat Garnisher Routine Comment: Discharge provider: Regina Bucio MD Summary Hospital Course Date Patient Seen: 02/02/24 Time Patient Seen: 07:44 Diagnoses: IUGR, placental abruption, s/p primary LTCS Hospital Course: 28 yo G1 presenting for mIOL for presumed growth restriction. mIOL was started with cytotec, which she tolerated well until 1129 on 01/11 when she stood and noted a large pool of blood. On exam, there is pooling blood at introitus and running down the legs. FHT showed occasional late decelerations but with good variability. On bedside Us there is concern for placental seperation/abruption. Decision made to move to CS. CS op notes available for full details. CS was complicated by hemorrhage requiring TXA and intrauterine pitocin with rectal cytotec given post-operatively. Procedure was otherwise uncomplicated. Post op Hgb did show a drop from 13.9-->9.9. She is taking PO FE supplementation. On POD 1, she was tolerating ambulation well. She was passing gas, had voided and was controlling pain with oral medications. She is breast feeding and has met [facility] . She wishes to go home. F/up apt is scheduled for POD 7 for incision check Peripartum Data Infant Delivery Method: Section Time Spent with Patient Time attestation: Total time spent providing and/or coordinating discharge services: Time spent: Less than 30 minutes Objective Labs 01/13/24 06:13 Labs: Laboratory Results - last 24 hr 01/13/24 06:13 WBC 12.8 H RBC 3.34 L Hgb 9.9 L Hct 29.2 L MCV 87.2 MCH 29.7 MCHC 34.0 RDW 13.3 Plt Count 171 Neut % (Auto) 78.3 H Lymph % (Auto) 14.1 L [place] % (Auto) 7.2 Eos % (Auto) 0.0 L Baso % (Auto) 0.4 Neut # (Auto) 19870 H Lymph # (Auto) 1800 [place] # (Auto) 900 Eos # (Auto) 0 Baso # (Auto) 100 Exam Vital Signs (past 8 hours): Oxygen Delivery Method Room Air Narrative Exam Narrative: GEN: well apeparing, sitting up in bed, breast feeding CV: RRR, no murmurs Pulm: CTAB Abd: non-tender, dressing with some staining from bleed on the pad but borders intact/sealed. Fundus firm belwo umbilicus Discharge Plan Discharge Plan Patient Disposition: Home Discharge orders & Medications Prescriptions: New oxycodone 5 mg Tablet 5 mg PO Q4H PRN (Reason: Pain, Moderate (4-6)) Qty: 14 0RF Continued Unisom (doxylamine) 25 mg tablet 25 mg PO BEDTIME PRN (Reason: sleep) Qty: 60 0RF pyridoxine (vitamin B6) 10 mg tablet 10 mg PO DAILY Qty: 60 0RF escitalopram oxalate [Lexapro] 5 mg tablet 5 mg PO DAILY Qty: 60 0RF calcium carbonate [Calcium 500] 500 mg calcium (1,250 mg) tablet,chewable 500 mg PO DAILY omeprazole 20 mg capsule,delayed release(DR/EC) 20 mg PO DAILY (DME) glucose test strips See Rx Instructions .ROUTE .MEDSUPPLY Qty: 50 0RF Rx Instructions: to test 3 times daily (DME) sharps container See Rx Instructions .ROUTE .MEDSUPPLY Qty: 1 1RF Rx Instructions: for glucose supplies (DME) glucometer See Rx Instructions .Route .MEDSUPPLY Qty: 1 0RF Rx Instructions: check glucoses 3 times daily (DME) lancet See Rx Instructions .ROUTE .MEDSUPPLY Qty: 50 0RF Rx Instructions: to test glucose 4 times daily folic acid 1 mg tablet 4 mg PO DAILY Qty: 120 2RF ferrous sulfate [Feosol] 325 mg (65 mg iron) tablet 325 mg PO DAILY sumatriptan succinate 25 mg tablet See Rx Instructions .ROUTE .COMPLEX Qty: 16 0RF Rx Instructions: take 1 tab at onset of headache; if no relief may repeat 1 tab after at least 2 hrs; max = 4 tabs/24 hr Follow up/Referrals: Regnia Bucio MD [Primary Care Provider] - Visit Report/Discharge Packet Stand Alone Forms: Discharge: Care, Patient Portal/API, Stroke Signs & Symptoms Discharge Data Primary Care Provider: Regina Bucio Discharges patient from system. Discharge Date/Time: 01/13/24 16:40
[2024-01-13 15:28] VITALS: BP 104/67; PULSE 82; RESP 16; TEMP 36.9
== END 2024-01-13 16:40 | disposition home or self-care (01) | DRG 787 ==
PROVIDERS: Obstetrics & Gynecology; Admitting Provider Family Medicine; PCP Family Medicine; Referring Provider Family Medicine; Visit Provider Family Medicine
PROC: (CPT 59514; principal; 2024-01-12 12:15)
DX: O45.93 Premature separation of placenta, unspecified, third trimester (principal); O72.0 Third-stage hemorrhage; O36.5930 Maternal care for other known or suspected poor fetal growth, third trimester, not applicable or unspecified; O76 Abnormality in fetal heart rate and rhythm complicating labor and delivery; O99.844 Bariatric surgery status complicating childbirth; Z3A.39 39 weeks gestation of pregnancy; Z37.0 Single live birth
CPT/HCPCS: 36415; 59050; 59200; 76815; 85025; 86850; 86900; 86901; A9270; G0379; J0690; J1885; J2274; J2590; S0191

== ENCOUNTER 2024-09-21 19:23 | Emergency (ER) | payer OTHER, SELFPAY ==
[2024-09-21 19:33] VITALS: BP 115/61; PULSE 97; RESP 18; TEMP 37.2; O2SAT 99; BMI 21.4
[2024-09-21 19:55] LABS: Add Manual Diff / Slide Review NO; Hematocrit 38.6 % (36-46); Hemoglobin 12.9 g/dL (12.0-16.0); Lymphocytes Absolute Auto 400 /uL (1100-4500); Mean Corpuscular HGB Conc 33.5 % (30-36); Mean Corpuscular Hemoglobin 28.6 PG (26-34); Mean Corpuscular Volume 85.3 fL (80-100); Platelet Count 256 X10^3/uL (150-400)
[2024-09-21 20:11] LABS: Alanine Aminotransferase 20 IU/L (<35); Albumin 4.5 g/dL (3.5-5.0); Albumin Globulin Ratio 1.5 (1.0-2.8); Alkaline Phosphatase 49 U/L (38-126); Blood Urea Nitrogen 9 mg/dL (7-17); Calcium 9.2 mg/dL (8.4-10.2); Carbon Dioxide 25 mmol/L (22-32); Chloride 101 mmol/L (98-107); Estimated Glomerular Filt Rate > 60 mL/min (>60); Globulin 3.1 g/dL (1.7-4.1); Glucose 181 mg/dL (70-99); HEMOLYSIS < 15 (0-50); Lipase 28 U/L (23-300); Potassium 3.6 mmol/L (3.4-5.1); Sodium 136 mmol/L (137-145); Total Protein 7.6 g/dL (6.3-8.2)
--- NOTE | 2024-09-21 22:23 | DI.CT.S_ITS ---
PROCEDURE: CT ABDOMEN PELVIS W CON INDICATIONS: rlq abdominal pain with increased white count TECHNIQUE: After the administration of intravenous contrast, axial sections acquired from the lung bases to the pubic symphysis. Coronal and sagittal reformats were performed. For radiation dose reduction, the following was used: automated exposure control, adjustment of mA and/or kV according to patient size. COMPARISON: None. FINDINGS: Image quality: Diagnostic. Lower Chest: No significant findings. ABDOMEN: Liver: No solid mass. Gallbladder: No radiopaque gallstones or wall thickening. Biliary ducts: No biliary dilation. Pancreas: No ductal dilation. Spleen: Size is within normal limits. Adrenal Glands: No adrenal nodules. Kidneys and Ureters: No hydronephrosis. No solid mass. No complex renal cystic lesion which requires follow up. Stomach and Bowel: Normal colonic caliber, without significant wall thickening. Normal appendix. Peritoneum: No abnormal intraperitoneal fluid. No free air. Ventral Wall: No significant ventral hernia. Abdominal Nodes: No retroperitoneal or mesenteric adenopathy by size criteria. Vessels: Aorta and inferior vena cava are normal in size. PELVIS: Pelvic Organs: IUD is in appropriately positioned, with the wings extending into the myometrium. Ovaries are enlarged but symmetric. Bladder: No bladder wall thickening, accounting for underdistention. Pelvic Nodes: No enlarged lymph nodes. Miscellaneous: No inguinal hernias are seen. Bones: No aggressive osseous abnormality. IMPRESSION: In appropriately positioned IUD. The wings extend into the myometrium at the fundus. Symmetrical ovaries. Normal appendix. Normal gallbladder. No nephrolithiasis or hydronephrosis. Dictated by: Pipo Galeana M.D. on 09/21/2024 at 23:20 Approved by: Pipo Galeana M.D. on 09/21/2024 at 23:23
--- NOTE | 2024-09-22 00:10 | DI.US.S_ITS ---
PROCEDURE: US PELVIC COMPLETE INDICATIONS: RLQ pain, neg hcg/CT TECHNIQUE: Real-time scanning was performed of the pelvic organs, with image documentation. Additional endovaginal scanning was necessary due to incomplete visualization of the adnexal and endometrial structures by transabdominal scanning. Color and spectral Doppler of the ovaries was performed. COMPARISON: None. FINDINGS: Uterus: Uterus is anteverted and normal in size at 7.8 x 3.7 x 5.4 cm. The myometrium is homogeneous. The endometrium measures 3.8 mm combined thickness. IUD appears appropriately positioned within the endometrium. Ovaries: The right ovary measures 4.3 x 2.7 x 3.7 cm, with a calculated ovarian volume of 23 cc. The left ovary measures 3.0 x 5.4 x 2.7 cm, with a calculated ovarian volume of 23 cc. The ovaries have a normal sonographic appearance. Less than 12 follicles can be seen in each ovary. No adnexal masses are seen. Normal arterial and venous waveforms present. Other: No pathologic free abdominal or pelvic fluid. IMPRESSION: The ovaries are symmetrically enlarged, with normal vasculature. Findings can be seen in the setting of PCOS. We strive to produce accurate, complete, and clear reports of imaging services. To assist us in improving patient care, this report was composed using standard report templates and voice recognition software. Therefore, it may contain abnormal punctuation, insertions and/or omissions. Occasional wrong-word or sound-alike substitutions may occur. Though we review the report and make efforts to correct it, we do recommend that the report be read carefully in proper context to recognize any text inaccuracies. Dictated by: Pipo Galeana M.D. on 09/22/2024 at 1:36 Approved by: Pipo Galeana M.D. on 09/22/2024 at 1:37
--- NOTE | 2024-09-22 00:31 | ED_ITS ---
HPI - Abdominal Pain General Chief Complaint: Abdominal Pain Stated Complaint: right lower stomach pain since last night Time Seen by Provider: 09/22/24 00:10 Source: patient Mode of arrival: Ambulatory History of Present Illness HPI narrative: 29-year-old female has right lower quadrant pain nontraumatic since day before yesterday, recently completed her period, no history of known ovarian cysts, no vaginal discharge, denies history of pelvic infections, has IUD placed April 2024 without any known problems. No new activities, lifting, trauma. No loose stools diarrhea or black or red stools. Related Data Home Medications ?Medication ?Instructions ?Recorded ?Confirmed calcium carbonate (Calcium 500) 500 mg PO DAILY 03/31/24 omeprazole 20 mg capsule,delayed 20 mg PO DAILY 03/31/24 release ferrous sulfate 325 mg (65 mg 325 mg PO DAILY 05/19/23 03/31/24 iron) tablet (Feosol) Previous Rx's ?Medication ?Instructions ?Recorded sumatriptan succinate 25 mg tablet See Rx Instructions PO .COMPLEX 10/16/22 #16 tabs doxylamine succinate 25 mg tablet 25 mg PO BEDTIME PRN sleep #60 tabs 05/27/23 (Unisom (doxylamine)) glucometer #1 ea 09/16/23 glucose test strips #50 ea 09/16/23 lancet #50 ea 09/16/23 sharps container #1 ea 09/16/23 breast pump #1 ea 01/24/24 bupropion HCl 150 mg 24 hr tablet, 150 mg PO QAM #90 t abs 05/29/24 extended release (Wellbutrin XL) escitalopram oxalate 20 mg tablet 20 mg PO DAILY #90 t abs 05/29/24 (Lexapro) clindamycin HCl 300 mg capsule 300 mg PO Q6H Dental in fection 7 09/22/24 days #28 caps Allergies Allergy/AdvReac Type Severity Reaction Status Date / Time clavulanic acid (From Allergy Intermediate Facial Verified 03/31/24 13:34 Augmentin) swelling Patient History Medical History (Updated 09/22/24 @ 02:17 by Edil Webber MD) IUD (intrauterine device) in place Encounter for supervision of normal first , unspecified trimester Intends combined and formula feeding Morbid obesity with BMI of 40.0-44.9, adult Fracture Surgical History (Updated 01/17/24 @ 20:14 by Regina Bucio MD) S/P primary low transverse History of bariatric surgery [place] teeth extracted Family History (Updated 05/19/23 @ 15:39 by Mary Mae RN) Father Hypertension CVA (cerebral vascular accident) Diabetes mellitus Grandfather Heart attack Grandfather Cancer Brother Heart attack Social History marital status: number of children: 0 household members: spouse and family (parents and brother) lives independently: Yes caregiver/support person: No housing: other (mobile home) pets and animals: Yes (3 dogs and 1 cat, bird, not responsible for either litter box or bird) education level: college (some college) occupational status: employed ([employer]) and unemployed current occupational exposures/hazards: No rhea/hindu: Cheondoism special rhea needs: No travel history: over 6 months ago seatbelt use: always helmet use: Yes water heater temp set < 120 deg: Yes working smoke detector in home: Yes fire extinguisher in home: Yes carbon monox detector in home: Yes firearms in home: No do you feel safe at home: Yes Tobacco: How many years used: 4 second hand exposure: Yes alcohol intake: former (occasionally when not ) substance use type: marijuana (smokes for anxiety; aware that this is not advised in /) during the past year weight has: decreased > 10 lbs (bariatric surgery May 2022) well-balanced diet: rarely or never (will work on this) daily servings fruits/ve-1 caffeine: Yes (energy drinks or espresso, stopped Red bull with ) Type(s) of exercise: walking and other (moderate to sometimes heavy lifting at work) tobacco type: vaping alcohol intake frequency: holidays/special occasions only Exam Narrative Exam Narrative: GENERAL: Well-developed patient, in mild distress. HEAD: Atraumatic. Normocephalic. EYES: Pupils equal round and reactive. Extraocular motions intact. No scleral icterus. No injection or drainage. ENT: Nose without bleeding, purulent drainage. Throat without erythema, tonsillar hypertrophy or exudate. Airway patent. NECK: Trachea midline. Non tender CARDIOVASCULAR: Regular rate and rhythm without murmurs, gallops, or rubs. RESPIRATORY: Clear to auscultation. Breath sounds equal bilaterally. No wheezes, rales, or rhonchi. GASTROINTESTINAL: Nondistended, some tenderness right lower quadrant, no guarding or rebound. Unremarkable bowel tones without rushes or tinkles. EXTREMITIES: No edema or joint tenderness. BACK: Nontender without deformity or crepitance. No flank tenderness. NEURO: AOx3. Motor functions grossly nonfocal. SKIN: No rash or erythema of visible areas Initial Vital Signs Initial Vital Signs: Vital Signs Temperature 98.9 F 09/21/24 19:33 Pulse Rate 97 H 09/21/24 19:33 Respiratory Rate 18 09/21/24 19:33 Blood Pressure 115/61 09/21/24 19:33 Pulse Oximetry 99 09/21/24 19:33 Oxygen Delivery Method Room Air 09/21/24 19:33 Course Orders Ordered: Discontinued Medications Hydrocodone Bitart/Acetaminophen (Hydrocodone/Acet 5/325 Prepack) 1 bottle MISC DIRECTED ONE Stop: 09/22/24 02:00 Last Admin: 09/22/24 02:24 Dose: 1 bottle Documented By: SINDY Clindamycin HCl (Clindamycin 150 Mg Capsule) 300 mg PO NOW ONE Stop: 09/22/24 01:57 Clindamycin HCl (Clindamycin 150 Mg Capsule) 300 mg PO NOW ONE Stop: 09/22/24 02:15 Last Admin: 09/22/24 02:24 Dose: 300 mg Documented By: SINDY Hydromorphone HCl (Hydromorphone Hcl 0.5 Mg/0.5 Ml Syringe) 0.5 mg IV NOW ONE Stop: 09/21/24 22:44 Last Admin: 09/21/24 22:46 Dose: 0.5 mg Documented By: MERCEDES Hydromorphone HCl (Hydromorphone Hcl 0.5 Mg/0.5 Ml Syringe) 0.5 mg IV NOW ONE Stop: 09/22/24 01:59 Last Admin: 09/22/24 02:24 Dose: 0.5 mg Documented By: SINDY Clindamycin Phosphate (Cleocin) 900 mg in 50 mls @ 50 mls/hr IV NOW ONE Stop: 09/22/24 02:57 Ondansetron HCl (Ondansetron 4 Mg/2 Ml Inj) 4 mg IV NOW PRN PRN Reason: Nausea And Vomiting Ondansetron HCl (Ondansetron 4 Mg Odt) 4 mg PO NOW PRN PRN Reason: Nausea And Vomiting Vital Signs Vital signs: Vital Signs - 8 hr 09/21/24 19:33 Temperature 98.9 F Pulse Rate 97 H Respiratory Rate 18 Blood Pressure 115/61 Pulse Oximetry 99 Oxygen Delivery Method Room Air MDM - Abdominal Pain Lab Data Attestation: I reviewed the patient's lab results. Lab results narrative: White blood cell count 65874, hemoglobin 12.9, platelets adequate. Glucose 181. BUN creatinine normal. Serum CO2 25 normal. Normal potassium level, slight decreased sodium 136 noted. Liver functions and lipase normal. Urine test negative. 09/21/24 19:50 09/21/24 19:50 Labs: Lab Results 09/21/24 09/21/24 Range/Units 19:50 19:55 WBC 16.3 H (4.5-11.0) X10^3/uL RBC 4.52 (4.0-5.2) X10^6/uL Hgb 12.9 (12.0-16.0) g/dL Hct 38.6 (36-46) % MCV 85.3 (80-100) fL MCH 28.6 (26-34) PG MCHC 33.5 (30-36) % RDW 13.0 (11.6-14.8) % Plt Count 256 (150-400) X10^3/uL Neut % (Auto) 94.5 H (50-75) % Lymph % (Auto) 2.4 L (25-40) % [place] % (Auto) 3.0 (3-14) % Eos % (Auto) 0.0 L (2-4) % Baso % (Auto) 0.1 (0-2) % Neut # (Auto) 24229 H (7991-3525) /uL Lymph # (Auto) 400 L (6167-4379) /uL [place] # (Auto) 500 (0-900) /uL Eos # (Auto) 0 (0-450) /uL Baso # (Auto) 0 (0-100) /uL Sodium 136 L (137-145) mmol/L Potassium 3.6 (3.4-5.1) mmol/L Chloride 101 (98-107) mmol/L Carbon Dioxide 25 (22-32) mmol/L BUN 9 (7-17) mg/dL Creatinine 0.72 (0.52-1.04) mg/dL Estimated GFR > 60 (>60) mL/min BUN/Creatinine Ratio 12.5 (6-22) Glucose 181 H (70-99) mg/dL Calcium 9.2 (8.4-10.2) mg/dL Total Bilirubin 0.5 (0.2-1.3) mg/dL AST 30 (14-36) IU/L ALT 20 (<35) IU/L Alkaline Phosphatase 49 (38-126) U/L Total Protein 7.6 (6.3-8.2) g/dL Albumin 4.5 (3.5-5.0) g/dL Globulin 3.1 (1.7-4.1) g/dL Albumin/Globulin Ratio 1.5 (1.0-2.8) Lipase 28 (23-300) U/L Ur Bilirubin Confirm Negative (Negative) Ur Chlamydia DNA (PCR) Not detected N gonorrhoeae DNA (PCR) Not detected Point of care testing: Point of Care Testing Test Results Negative Urine Dip Bedside Urine Glucose Negative Bedside Urine Bilirubin + 1 Bedside Urine Ketone - Negative Urine Specific [place] 1.030 Bedside Urine Occult Blood - Negative Bedside Urine pH 6.0 Bedside Urine Protein - Negative Bedside Urine Urobilinogen - Negative Bedside Urine Nitrite - Negative Bedside Urine Leukocytes +/- [address] scan - abdomen/pelvis: Radiologist's Impression: [address] [address] [address] Scan Report Signed Patient: Yuliana Cosby MR#: [id number] : 1995 Acct:[id number] Age/Sex: 29 / F Date of Service: 09/21/24 Loc: ED Accession Number: [id number] Procedure: CT abdomen pelvis w con Ordering Provider: Edil Webber MD PROCEDURE: CT ABDOMEN PELVIS W CON INDICATIONS: rlq abdominal pain with increased white count TECHNIQUE: After the administration of intravenous contrast, axial sections acquired from the lung bases to the pubic symphysis. Coronal and sagittal reformats were performed. For radiation dose reduction, the following was used: automated exposure control, adjustment of mA and/or kV according to patient size. COMPARISON: None. FINDINGS: Image quality: Diagnostic. Lower Chest: No significant findings. ABDOMEN: Liver: No solid mass. Gallbladder: No radiopaque gallstones or wall thickening. Biliary ducts: No biliary dilation. Pancreas: No ductal dilation. Spleen: Size is within normal limits. Adrenal Glands: No adrenal nodules. Kidneys and Ureters: No hydronephrosis. No solid mass. No complex renal cystic lesion which requires follow up. Stomach and Bowel: Normal colonic caliber, without significant wall thickening. Normal appendix. Peritoneum: No abnormal intraperitoneal fluid. No free air. Ventral Wall: No significant ventral hernia. Abdominal Nodes: No retroperitoneal or mesenteric adenopathy by size criteria. Vessels: Aorta and inferior vena cava are normal in size. PELVIS: Pelvic Organs: IUD is in appropriately positioned, with the wings extending into the myometrium. Ovaries are enlarged but symmetric. Bladder: No bladder wall thickening, accounting for underdistention. Pelvic Nodes: No enlarged lymph nodes. Miscellaneous: No inguinal hernias are seen. Bones: No aggressive osseous abnormality. IMPRESSION: In appropriately positioned IUD. The wings extend into the myometrium at the fundus. Symmetrical ovaries. Normal appendix. Normal gallbladder. No nephrolithiasis or hydronephrosis. Dictated by: Pipo Galeana M.D. on 09/21/2024 at 23:20 Approved by: Pipo Galeana M.D. on 09/21/2024 at 23:23 Ultrasound pelvis: Radiologist's Impression: [place] [address] Ultrasound Report Signed Patient: Yuliana Cosby MR#: [id number] : 1995 Acct:[id number] Age/Sex: 29 / F Date of Service: 09/22/24 Loc: ED Accession Number: [id number] Procedure: US pelvic complete Ordering Provider: Edil Webber MD PROCEDURE: US PELVIC COMPLETE INDICATIONS: RLQ pain, neg hcg/CT TECHNIQUE: Real-time scanning was performed of the pelvic organs, with image documentation. Additional endovaginal scanning was necessary due to incomplete visualization of the adnexal and endometrial structures by transabdominal scanning. Color and spectral Doppler of the ovaries was performed. COMPARISON: None. FINDINGS: Uterus: Uterus is anteverted and normal in size at 7.8 x 3.7 x 5.4 cm. The myometrium is homogeneous. The endometrium measures 3.8 mm combined thickness. IUD appears appropriately positioned within the endometrium. Ovaries: The right ovary measures 4.3 x 2.7 x 3.7 cm, with a calculated ovarian volume of 23 cc. The left ovary measures 3.0 x 5.4 x 2.7 cm, with a calculated ovarian volume of 23 cc. The ovaries have a normal sonographic appearance. Less than 12 follicles can be seen in each ovary. No adnexal masses are seen. Normal arterial and venous waveforms present. Other: No pathologic free abdominal or pelvic fluid. IMPRESSION: The ovaries are symmetrically enlarged, with normal vasculature. Findings can be seen in the setting of PCOS. We strive to produce accurate, complete, and clear reports of imaging services. To assist us in improving patient care, this report was composed using standard report templates and voice recognition software. Therefore, it may contain abnormal punctuation, insertions and/or omissions. Occasional wrong-word or sound-alike substitutions may occur. Though we review the report and make efforts to correct it, we do recommend that the report be read carefully in proper context to recognize any text inaccuracies. Dictated by: Pipo Galeana M.D. on 09/22/2024 at 1:36 Approved by: Pipo Galeana M.D. on 09/22/2024 at 1:37 MDM Narrative Medical decision making narrative: 29-year-old female with right lower quadrant pain, no fever, some tenderness right lower quadrant without guarding or rebound tenderness. DX consider appendicitis, colitis, ovarian cyst, PID, ovarian torsion, ectopic , other. Labs pending including hCG. IV dilaudid. Lab data: White blood cell count 72142, hemoglobin 12.9, platelets adequate. Glucose 181. BUN creatinine normal. Serum CO2 25 normal. Normal potassium level, slight decreased sodium 136 noted. Liver functions and lipase normal. Urine test negative. CT abdomen and pelvis showed no acute changes, malposition/location IUD noted. See radiology CT report. 0100, Ultrasound pelvis ordered, still to be performed. 0130, ultrasound showed no acute changes per technical writing lead/mgr, await Radiology US report. Ultrasound report describes symmetrically enlarged ovaries, normal vascular flow, can be seen with PCOS. Normal position IUD noted. See radiology US report. We will consult cross cover for Dr. Bucio, Dr Amanda listed on-call. 0155, case discussed with Dr. Amanda who requests starting oral clindamycin, with close follow up tomorrow in clinic. Repeat IV dilaudid, homepack hydrocodone/APAP. DC home with family. Urine GC/chlamydia negative. Discharge Plan Departure Patient Disposition: Home Clinical Impression: Abdominal pain Activity Restrictions/Additional Instructions: History of previous IUD placement April 2024, lower abdominal discomfort that seemed to predominantly right-sided. CT abdomen and pelvis showed no appendicitis or colitis or acute changes to explain the right side specifically. There was a CT finding that was suspected to show malposition of the IUD, perhaps 1 horn into the myometrium of the uterus. However on ultrasound pelvis testing this was not felt to be the case. Sometimes IUD can be associated with infection. Case discussed with cross cover physician, who suggested starting clindamycin. Oral dose of clindamycin was given. Pain medications IV and oral. Discharge on hydrocodone/acetaminophen oral pain medication. Recheck tomorrow suggested by cross cover physician in clinic tomorrow with Dr. Bucio to see if the IUD might need to be removed. Prescriptions: New clindamycin HCl 300 mg capsule 300 mg PO Q6H 7 Days Qty: 28 0RF No Action Unisom (doxylamine) 25 mg tablet 25 mg PO BEDTIME PRN (Reason: sleep) Qty: 60 0RF escitalopram oxalate [Lexapro] 20 mg tablet 20 mg PO DAILY Qty: 90 3RF bupropion HCl [Wellbutrin XL] 150 mg tablet extended release 24 hr 150 mg PO QAM Qty: 90 3RF calcium carbonate [Calcium 500] 500 mg calcium (1,250 mg) tablet,chewable 500 mg PO DAILY omeprazole 20 mg capsule,delayed release(DR/EC) 20 mg PO DAILY (DME) glucose test strips See Rx Instructions .ROUTE .MEDSUPPLY Qty: 50 0RF Rx Instructions: to test 3 times daily (DME) sharps container See Rx Instructions .ROUTE .MEDSUPPLY Qty: 1 1RF Rx Instructions: for glucose supplies (DME) glucometer See Rx Instructions .Route .MEDSUPPLY Qty: 1 0RF Rx Instructions: check glucoses 3 times daily (DME) lancet See Rx Instructions .ROUTE .MEDSUPPLY Qty: 50 0RF Rx Instructions: to test glucose 4 times daily (DME) breast pump Device See Rx Instructions .Route Qty: 1 0RF Rx Instructions: As directed - [employer] ferrous sulfate [Feosol] 325 mg (65 mg iron) tablet 325 mg PO DAILY sumatriptan succinate 25 mg tablet See Rx Instructions .ROUTE .COMPLEX Qty: 16 0RF Rx Instructions: take 1 tab at onset of headache; if no relief may repeat 1 tab after at least 2 hrs; max = 4 tabs/24 hr Referrals: Regina Bucio MD [Primary Care Provider, Family Practice] Stand Alone Forms: Patient Portal/API
[2024-09-22] MEDS: HYDROCODONE/ACET 5/325 PREPACK 1 BOTTLE MISC (02:24)
[2024-09-22] MEDS: CLINDAMYCIN 150 MG CAPSULE 300 MG PO (02:24)
[2024-09-22 02:45] LABS: Ictotest Urine Negative (Negative)
[2024-09-22 04:10] LABS: Urine Chlamydia NOT DETECTED; Urine N gonorrhoeae NOT DETECTED
== END 2024-09-22 02:46 | disposition home or self-care (01) ==
PROVIDERS: Emergency Provider Emergency Medicine; PCP Family Medicine
DX: R10.31 Right lower quadrant pain (principal); Z97.5 Presence of (intrauterine) contraceptive device
CPT/HCPCS: 36415; 74177; 76830; 76856; 80053; 81003; 81025; 83690; 85025; 87491; 87591; 93975; 96374; 96376; 99284; J1171; Q9967

== ENCOUNTER → 2024-09-22 16:47 | Outpatient (CLI) | payer OTHER, SELFPAY ==
[2024-09-22 17:08] LABS: Add Manual Diff / Slide Review NO; Hematocrit 39.9 % (36-46); Hemoglobin 13.2 g/dL (12.0-16.0); Lymphocytes Absolute Auto 1500 /uL (1100-4500); Mean Corpuscular HGB Conc 33.1 % (30-36); Mean Corpuscular Hemoglobin 28.4 PG (26-34); Mean Corpuscular Volume 85.8 fL (80-100); Platelet Count 248 X10^3/uL (150-400)
[2024-09-22 19:10] LABS: Urine N gonorrhoeae NOT DETECTED
[2024-09-22 19:23] LABS: Urine Chlamydia NOT DETECTED
[2024-09-23 15:49] LABS: HIV 1 & 2 Ab/Ag 4th Gen Combo NEGATIVE (NEGATIVE)
== END ==
LOC: LAB 16:48
PROVIDERS: PCP Family Medicine; Referring Provider Family Medicine; Visit Provider Family Medicine
DX: R10.9 Unspecified abdominal pain (principal); Z20.2 Contact with and (suspected) exposure to infections with a predominantly sexual mode of transmission
CPT/HCPCS: 36415; 85025; 86592; 87389; 87491; 87591